=== PATIENT | male | born 1980 | race Caucasian/White ===

== ENCOUNTER 2017-07-02 09:04 | Emergency (ER) | payer BC ==
[2017-07-02 09:53] VITALS: O2SAT 97
[2017-07-02 10:16] LABS: BASO # 0.1 K/uL (0.0-0.2); BASO % 0.5 % (0.0-2.0); EOS # 0.5 K/uL (0.0-0.7); EOS % 3.9 % (0.0-4.0); HEMATOCRIT 41.6 % (35.0-51.0); LYMPH # 1.5 K/uL (1.0-4.3); LYMPH % 12.7 % (20.0-40.0); MEAN CELL VOLUME 91.2 fL (80.0-94.0); MEAN CORPUSCULAR HEMOGLOBIN 30.5 pg (27.0-31.0); MEAN CORPUSCULAR HGB CONC 33.4 g/dL (33.0-37.0); MEAN PLATELET VOLUME 7.8 fL (7.2-11.7); MONO % 8.1 % (0.0-10.0); RED CELL DISTRIBUTION WIDTH 13.8 % (11.5-14.5)
[2017-07-02] MEDS ORDERED: Albuterol-Ipratrop 3 mg / 0.5 (3 ml) UD IH STA (10:16)
[2017-07-02] MEDS ORDERED: Albuterol 0.083% Inhal Sol (2.5 mg/3 mL) UD IH STA (10:16)
[2017-07-02] MEDS ORDERED: Metoprolol Succinate 25 mg XL Tab PO ONE (10:17)
[2017-07-02 10:37] LABS: BLOOD UREA NITROGEN 15 mg/dL (9-20); CALCIUM 8.7 mg/dl (8.6-10.4); CARBON DIOXIDE 26 mmol/L (22-30); CHLORIDE 100 mmol/L (98-107); GFR AFRICAN-AMERICAN > 60; GLUCOSE,RANDOM 100 mg/dL (75-110); POTASSIUM 4.4 mmol/L (3.6-5.2); SODIUM 140 mmol/L (132-148)
[2017-07-02] MEDS ORDERED: Albuterol-Ipratrop 3 mg / 0.5 (3 ml) UD ONE ×2 (10:44→11:47)
--- NOTE | 2017-07-02 10:53 | RAD ---
HISTORY: Shortness of breath COMPARISON: 09/20/2016 TECHNIQUE: Chest PA and lateral FINDINGS: LUNGS: Moderate venous congestion with patchy bibasilar airspace opacities. PLEURA: No significant pleural effusion identified. No pneumothorax apparent. CARDIOVASCULAR: Left-sided pacer device. Cardiomegaly. OSSEOUS STRUCTURES: No significant abnormalities. VISUALIZED UPPER ABDOMEN: Normal. OTHER FINDINGS: None. IMPRESSION: Moderate venous congestion with patchy bibasilar airspace opacities.
--- NOTE | 2017-07-02 11:24 | C.PDOC ---
History Of Present Illness 37 yo male w/PMHx of asthma, cardiomyopathy, come in for evaluation of cold sx gradually worse for past 3-4 days. Pt reports, started as nasal congestion with dry cough. Pt sts, cough worse gradually became more productive with clear sputum. Since yesterday, developed SOB, intermittent wheezing. Otherwise, pt denies fever, chills, headache, dizziness, visual changes, neck pain, drooling, dysphagia, palpitation, diaphoresis, abd. pain, N/V/D, back pain, rash. Ambulate to ED for evaluation, not in resp. distress. Time Seen by Provider: 07/02/17 09:36 Chief Complaint (Nursing): Shortness Of Breath History Per: Patient Onset/Duration Of Symptoms: Gradual Past Medical History Reviewed: Historical Data, Nursing Documentation, Vital Signs Vital Signs: Last Vital Signs Temp 98.6 F 07/02/17 11:57 Pulse 112 H 07/02/17 11:57 Resp 18 07/02/17 11:57 BP 104/78 07/02/17 11:57 Pulse Ox 97 07/02/17 11:57 - Medical History PMH: Bronchitis, CHF, HTN Denies: Chronic Kidney Disease Surgical History: Appendectomy - [facility] Procedures CORONAR ARTERIOGR-2 CATH (10/06/13) RT & LT HEART ANGIOCARD (10/06/13) RT/LEFT HEART CARD CATH (10/06/13) Family History: States: [place], CAD, Hypertension (CHF), Other - Social History Hx Tobacco Use: No Hx Alcohol Use: No Hx Substance Use: No - Immunization History Hx Tetanus Toxoid Vaccination: No Hx Influenza Vaccination: No Hx Pneumococcal Vaccination: No Review Of Systems Except As Marked, All Systems Reviewed And Found Negative. Constitutional: Negative for: Fever, Chills, Malaise ENT: Positive for: Nose Discharge, Nose Congestion, Throat Pain. Negative for: Ear Discharge, Throat Swelling Cardiovascular: Negative for: Chest Pain, Palpitations, Orthopnea, Edema, Light Headedness Respiratory: Positive for: Cough, Shortness of Breath, Sputum, Wheezing. Negative for: SOB with Excertion, Pleuritic Pain Gastrointestinal: Negative for: Nausea, Vomiting, Abdominal Pain Genitourinary: Negative for: Dysuria Musculoskeletal: Negative for: Neck Pain, Back Pain Skin: Negative for: Rash Neurological: Negative for: Weakness, Numbness, Altered Mental Status, Headache , Dizziness Physical Exam - Physical Exam Appears: Well, Non-toxic, No Acute Distress Skin: Normal Color, Warm, Dry, No Rash Head: Normacephalic Eye(s): bilateral: PERRL Nose: No Flaring, Discharge (scant clear B/L rhinorhea) Oral Mucosa: Moist, Drooling Throat: No Erythema, No Exudate, No Drooling Neck: Supple Cardiovascular: Rhythm Regular, No Friction Rub, No Murmur, No JVD Respiratory: No Decreased Breath Sounds, No Accessory Muscle Use, No Rales, No Rhonchi, No Stridor, Wheezing (diffuse Right sided >Left expiratory) Gastrointestinal/Abdominal: Soft, No Tenderness Back: No CVA Tenderness Extremity: No Pedal Edema, No Swelling Neurological/Psych: Oriented x3, Normal Speech ED Course And Treatment - Laboratory Results Result Diagrams: 07/02/17 10:13 07/02/17 10:13 ECG: Interpreted By Me, Viewed By Me (and ED attending) Interpretation Of ECG: SInus tachy@106/min, Left atrial enragement, incomplete LBBB, no acute ST-T changes. Compare to old study from 2016 and appears without acute abnormalities. O2 Sat by Pulse Oximetry: 97 Pulse Ox Interpretation: Normal - Radiology CXR: Read By Radiologist - Other Rad CXR X-Ray: Read By Radiologist Interpretation: ccession No. : [id number]. Patient Name / ID : HAO CARVALHO / [id number]. Exam Date : 07/02/2017 10:04:51 ( Approved ). Study Comment : Sex / Age : M / 37Y. Creator : Vimal Yates MD. Dictator : Vimal Yates MD. Cable Assembler And Swager : Technical Spec : Vimal Yates MD. Approver2 : Report Date : 08/2017 10:51:33. My Comment : . HISTORY: Shortness of breath. COMPARISON: 09/20/2016. TECHNIQUE: Chest PA and lateral. FINDINGS: LUNGS: Moderate venous congestion with patchy bibasilar airspace opacities. PLEURA: No significant pleural effusion identified. No pneumothorax apparent. CARDIOVASCULAR: Left-sided pacer device. Cardiomegaly. OSSEOUS STRUCTURES: No significant abnormalities. VISUALIZED UPPER ABDOMEN: Normal. OTHER FINDINGS: None. IMPRESSION: Moderate venous congestion with patchy bibasilar airspace opacities. Progress Note: On re-evaluation, pt is afebrile, hemodynamicaly stable. Non- toxic. Pt reports, " feels much better". PUlseOx 97% RA. Neck: Supple, (-) JVD. ENT: no acute findings. Lungs: moderate improvement in wheezing, BS equal B/L. CVS: (+)S1S2, reg. ABd: benign. Bloor work review and appears without acute abnoramlities compare to previous results. EKG, CXR- no new acute changes noted. Case discussed with pt's PMD and results review. Discahrge with outpt f/u recommend and scheduled. Pt has clinical findings c/w bronchitis, asthma exacerbation. Pt advised on course of ds. ref. to F/u with PMD in 1- 2 days for re-evaluation. Return to ED if any worsening or new changes. Disposition Counseled Patient/Family Regarding: Studies Performed, Diagnosis, Need For Followup, Rx Given - Disposition Referrals: Mu Moreira MD [Staff Provider] - Disposition: HOME/ ROUTINE Disposition Time: 11:25 Condition: STABLE Additional Instructions: Encourage fluids Take medication as prescribed Follow up with PMD in 1- 2days for re-evaluation. Return to ED if any worsening or new changes. Prescriptions: Albuterol 0.083% [Albuterol 0.083% Inhal Nina (2.5 mg/3 ml) UD] 2.5 mg IH Q4 # 100 neb Cefdinir [Omnicef] 300 mg PO BID #14 cap Prednisone [Deltasone] 60 mg PO DAILY #9 tablet Instructions: Asthma (ED), Acute Bronchitis (ED) Forms: [facility] (Icelandic), Work Excuse - Clinical Impression Clinical Impression: Bronchitis, Asthma
[2017-07-02] MEDS ORDERED: Albuterol-Ipratrop 3 mg / 0.5 (3 ml) UD INH STA (11:40)
[2017-07-02 11:58] VITALS: BP 104/78; PULSE 112; RESP 18; TEMP 98.6
== END 2017-07-02 12:27 | disposition home or self-care (01) ==
LOC: C.ER 09:04
DX: J45.901 Unspecified asthma with (acute) exacerbation (principal)
CPT/HCPCS: 71020; 80048; 83880; 84484; 85025; 94150; 94640; 96374; 99284; J2930

== ENCOUNTER 2017-09-03 12:47 | Inpatient (IN) | payer BC ==
[2017-09-03] MEDS ORDERED: Albuterol-Ipratrop 3 mg / 0.5 (3 ml) UD IH STA (17:04)
--- NOTE | 2017-09-03 17:16 | RAD ---
HISTORY: productive cough COMPARISON: None 08/2017 TECHNIQUE: Chest PA and lateral FINDINGS: LUNGS: No active pulmonary disease. PLEURA: No significant pleural effusion identified. No pneumothorax apparent. CARDIOVASCULAR: No radiographic findings to suggest acute or significant cardiovascular disease. Position/ configuration of pacemaker device: Satisfactory. OSSEOUS STRUCTURES: No significant abnormalities. VISUALIZED UPPER ABDOMEN: Normal. OTHER FINDINGS: None. IMPRESSION: No active disease. No significant interval change compared to the prior examination(s).
[2017-09-03 17:24] LABS: BASO # 0.1 K/uL (0.0-0.2); EOS # 0.2 K/uL (0.0-0.7); LYMPH # 2.6 K/uL (1.0-4.3); MEAN CORPUSCULAR HGB CONC 33.8 g/dL (33.0-37.0)
[2017-09-03 17:31] LABS: BASO % 0.6 % (0.0-2.0); EOS % 1.3 % (0.0-4.0); HEMATOCRIT 42.4 % (35.0-51.0); MEAN CELL VOLUME 90.8 fL (80.0-94.0); MEAN CORPUSCULAR HEMOGLOBIN 30.7 pg (27.0-31.0); MEAN PLATELET VOLUME 8.5 fL (7.2-11.7); MONO # 0.8 K/uL (0.0-0.8); MONO % 5.1 % (0.0-10.0); NRBC % 0.1 % (0.0-2.0); RED CELL DISTRIBUTION WIDTH 13.4 % (11.5-14.5); WHITE BLOOD COUNT 16.1 K/uL (4.8-10.8)
[2017-09-03] MEDS ORDERED: Albuterol-Ipratrop 3 mg / 0.5 (3 ml) UD ONE (17:31)
[2017-09-03 17:34] LABS: CHLORIDE 99 mmol/L (98-107); SODIUM 134 mmol/L (132-148)
[2017-09-03 17:35] LABS: POTASSIUM 4.1 mmol/L (3.6-5.2)
[2017-09-03 17:37] LABS: ALB/GLOB RATIO 1.3 (1.0-2.1); ALKALINE PHOSPHATASE 79 U/L (38-126); AST/SGOT 35 U/L (17-59); BILIRUBIN,TOTAL 1.4 mg/dL (0.2-1.3); BLOOD UREA NITROGEN 16 mg/dL (9-20); CARBON DIOXIDE 25 mmol/L (22-30); GFR AFRICAN-AMERICAN > 60; GLUCOSE,RANDOM 121 mg/dL (75-110); TOTAL PROTEIN 7.6 g/dL (6.3-8.3)
[2017-09-03 17:38] LABS: ALT/SGPT 49 U/L (21-72); CALCIUM 9.1 mg/dl (8.6-10.4)
[2017-09-03 17:45] LABS: VENOUS BLOOD GAS BASE EXCESS 2.9 mmol/L (0.0-2.0); VENOUS BLOOD GAS PCO2 43 mmHg (40-60); VENOUS BLOOD PH 7.42 (7.32-7.43)
[2017-09-03] MEDS ORDERED: Moxifloxacin IV 400mg/250ml NS 400 MG/250 ML BAG IV STA (18:09)
--- NOTE | 2017-09-03 18:16 | C.PDOC ---
History Of Present Illness 37 year old male with Hx of CHF and pacemaker presents to the ED c/o having a dry cough that got progressively worse associated with yellowish, dark sputum and SOB. Chief Complaint (Nursing): Cough, Cold, Congestion History Per: Patient History/Exam Limitations: no limitations Onset/Duration Of Symptoms: Days Current Symptoms Are (Timing): Still Present Location Of Pain: Throat Sick Contacts (Context): None Associated Symptoms: Cough, Sputum. denies: Nausea Recent travel outside of the [place]: No Additional History Per: Patient Past Medical History Reviewed: Historical Data, Nursing Documentation, Vital Signs Vital Signs: Last Vital Signs Temp 97.8 F 09/03/17 13:33 Pulse 102 H 09/03/17 18:15 Resp 18 09/03/17 18:15 BP 96/55 L 09/03/17 18:15 Pulse Ox 95 09/03/17 18:32 - Medical History PMH: Bronchitis, CHF, HTN Denies: Chronic Kidney Disease Surgical History: Appendectomy - [facility] Procedures CORONAR ARTERIOGR-2 CATH (10/06/13) RT & LT HEART ANGIOCARD (10/06/13) RT/LEFT HEART CARD CATH (10/06/13) Family History: States: Unknown Family Hx, [place], CAD, Hypertension (CHF) - Social History Hx Tobacco Use: No Hx Alcohol Use: No Hx Substance Use: No - Immunization History Hx Tetanus Toxoid Vaccination: No Hx Influenza Vaccination: No Hx Pneumococcal Vaccination: No Review Of Systems Constitutional: Negative for: Fever, Chills ENT: Negative for: Nose Discharge, Throat Pain, Throat Swelling Cardiovascular: Negative for: Chest Pain, Palpitations Respiratory: Positive for: Shortness of Breath Gastrointestinal: Negative for: Nausea, Vomiting, Abdominal Pain Neurological: Negative for: Weakness, Numbness Physical Exam - Physical Exam Appears: Non-toxic, No Acute Distress Skin: Normal Color, Warm, Dry Head: Atraumatic, Normacephalic Eye(s): bilateral: Normal Inspection Oral Mucosa: Moist Throat: Normal, No Erythema, No Exudate Neck: Normal ROM, Supple Chest: Symmetrical Cardiovascular: Rhythm Regular, No Murmur Respiratory: No Accessory Muscle Use, No Rales, No Rhonchi, Wheezing (Bilateral) Gastrointestinal/Abdominal: Soft, No Tenderness Extremity: Normal ROM, No Pedal Edema, No Calf Tenderness, No Deformity, No Swelling Neurological/Psych: Oriented x3, Normal Speech, Normal Cognition Gait: Steady ED Course And Treatment - Laboratory Results Result Diagrams: 09/03/17 17:21 09/03/17 17:21 O2 Sat by Pulse Oximetry: 95 (On RA) Pulse Ox Interpretation: Normal - Radiology CXR: Interpreted by Me, Viewed By Me CXR Interpretation: Yes: No Acute Disease, Cardiomegaly. No: Infiltrates Nexus Criteria: Negative Progress Note: Plan: -EKG, UA, Blood work venous blood gas ordered. -Duoneb 3 ml INH, Lasix 40 mg PO, Avelox 400 mg in 250 mL IV, Solu-medrol 125 mg IVP given. -Blood culture collected. -Nebulizer treatment given - Physician Consult Information Physician Contacted: Oren Bolanos Outcome Of Conversation: accepted to tele for an admission Disposition - Disposition Disposition: HOSPITALIZED Disposition Time: 18:31 Condition: FAIR Forms: [facility] (Kyrgyz) - Clinical Impression Clinical Impression: CHF (congestive heart failure), Bronchitis, Asthma with exacerbation, Tachycardia - PA / RECORD PRESS OPERATOR / Resident Statement MD/DO has reviewed & agrees with the documentation as recorded. - Scribe Statement The provider has reviewed the documentation as recorded by the Scribe Goran Gonzalez All medical record entries made by the Scribe were at my direction and personally dictated by me. I have reviewed the chart and agree that the record accurately reflects my personal performance of the history, physical exam, medical decision making, and the department course for this patient. I have also personally directed, reviewed, and agree with the discharge instructions and disposition. Decision To Admit - Pt Status Changed To: Hospital Disposition Of: Inpatient - Admit Certification Admit to Inpatient:: After my assessment, the patient will require hospitalization for at least two midnights. This is because of the severity of symptoms shown, intensity of services needed, and/or the medical risk in this patient being treated as an outpatient. - InPatient: Physician Admission Certification: I certify that this patient requires 2 or more midnights of care for the following reason:: Clinically pneumonia, h/o CHF and Asthma, leucocytosis, tachycardia. Needs more than 48 h of hospitalization. - . Bed Request Type: Telemetry Admitting Physician: Oren Bolanos Patient Diagnosis: CHF (congestive heart failure), Bronchitis, Asthma with exacerbation, Tachycardia
[2017-09-03] MEDS ORDERED: Moxifloxacin IV 400mg/250ml NS 400 MG/250 ML BAG IVPB ONE (18:34)
--- NOTE | 2017-09-03 19:19 | CP.PCM.HP ---
<Sabino Moeller - Last Filed: 09/04/17 06:21> History of Present Illness - History of Present Illness History of Present Illness: CC: SOB HPI: Patient is a 37 year old male, with PMHx of asthma, TIFFANIE, systolic CHF, HTN, impaired glucose tolerance, dilated non-ischemic cardiomyopathy, s/p AICD, who presented to the emergency room with complaint of worsening cold symptoms. He states he first noticed "nasal congestion" and dry cough 3-4 days ago, and they have gradually gotten worse. Cough has now become productive with yellow sputum. Patient states his "chest feels tight" and it is getting harder for him to take a deep breath. He denies any sick contacts. Patient states he uses no inhalers at home, but does have a nebulizer he is uses a couple of times "when he feels like he needs it." When asked about his daily activity, he has been able to work at his job in a [employer] with exertion, without issue, except for today when he knew he would be unable to get through his shift. He states is able to lay flat and does not need to be propped up. He denies fever, chills, chest pain, palpitations, abdominal pain, N/V/D/C. He denies prior intubations for asthma, but admits recent ED visit on 07/02/17 for similar symptoms. He was given albuterol inhaler, which he states ran out "two weeks ago." PMD: Dr. Moreira Registrar Assistant: Dr. Quinteros Past medical hx: asthma, TIFFANIE, systolic CHF, HTN, impaired glucose tolerance, dilated non-ischemic cardiomyopathy, s/p AICD Past surgical hx: appendectomy, defibrillator placement (2014) Family hx: father had CAD, obesity and DM throughout family Social hx: lives with significant other, denies tobacco, alcohol, use or drugs; works in [employer] Allergies: none Present on Admission - Present on Admission Any Indicators Present on Admission: No Review of Systems - Constitutional Constitutional: absent: Chills, Fever - EENT Eyes: absent: Change in Vision Ears: absent: Decreased Hearing - Cardiovascular Cardiovascular: Dyspnea, Dyspnea on Exertion. absent: Chest Pain - Respiratory Respiratory: Dyspnea, Dyspnea on Exertion, Wheezing - Gastrointestinal Gastrointestinal: absent: Abdominal Pain, Nausea, Vomiting - Genitourinary Genitourinary: absent: Dysuria, Flank Pain - Musculoskeletal Musculoskeletal: absent: Back Pain, Numbness, Tingling - Integumentary Integumentary: absent: Dry Skin, Wounds - Neurological Neurological: absent: Disequilibrium, Tingling, Weakness - Psychiatric Psychiatric: absent: Anxiety, Depression Past Patient History - Infectious Disease Hx of Infectious Diseases: None - Tetanus Immunizations Tetanus Immunization: Unknown - Past Medical History & Family History Past Medical History?: Yes - Past Social History Smoking Status: Never Smoked - CARDIAC Hx Congestive Heart Failure: Yes Hx Hypertension: Yes - PULMONARY Hx Bronchitis: Yes - NEUROLOGICAL Hx Neurological Disorder: No - HEENT Hx HEENT Problems: No - RENAL Hx Chronic Kidney Disease: No - ENDOCRINE/METABOLIC Hx Endocrine Disorders: No - HEMATOLOGICAL/ONCOLOGICAL Hx Blood Disorders: No - INTEGUMENTARY Hx Dermatological Problems: No - MUSCULOSKELETAL/RHEUMATOLOGICAL Hx Musculoskeletal Disorders: No Hx Falls: No - GASTROINTESTINAL Other/Comment: hx appendicitis - GENITOURINARY/GYNECOLOGICAL Hx Genitourinary Disorders: No - PSYCHIATRIC Hx Substance Use: No - SURGICAL HISTORY Hx Appendectomy: Yes - ANESTHESIA Hx Anesthesia: Yes Hx Anesthesia Reactions: No Meds Allergies/Adverse Reactions: Allergies Allergy/AdvReac Type Severity Reaction Status Date / Time No Known Allergies Allergy Verified 09/20/16 18:36 Physical Exam - Constitutional Appears: Non-toxic, No Acute Distress - Head Exam Head Exam: ATRAUMATIC, NORMOCEPHALIC - Eye Exam Eye Exam: EOMI, Normal appearance. absent: Scleral icterus Pupil Exam: PERRL - ENT Exam ENT Exam: Mucous Membranes Moist - Neck Exam Neck exam: Positive for: Normal Inspection. Negative for: Tenderness - Respiratory Exam Respiratory Exam: Wheezes. absent: Clear to Auscultation Bilateral, Rales, Rhonchi, NORMAL BREATHING PATTERN - Cardiovascular Exam Cardiovascular Exam: Tachycardia, +S1, +S2. absent: Systolic Murmur - GI/Abdominal Exam GI & Abdominal Exam: Normal Bowel Sounds, Soft. absent: Distended, Tenderness - Extremities Exam Extremities exam: Positive for: normal inspection. Negative for: pedal edema, tenderness - Back Exam Back exam: absent: CVA tenderness (L), CVA tenderness (R) - Neurological Exam Neurological exam: Alert, Oriented x3 - Psychiatric Exam Psychiatric exam: Normal Affect, Normal Mood - Skin Skin Exam: Dry, Normal Color, Warm Results - Vital Signs Recent Vital Signs: Last Vital Signs Temp 97.8 F 09/03/17 13:33 Pulse 102 H 09/03/17 18:15 Resp 18 09/03/17 18:15 BP 96/55 L 09/03/17 18:15 Pulse Ox 95 09/03/17 18:54 - Labs Result Diagrams: 09/03/17 17:21 09/04/17 02:37 Labs: Laboratory Results - last 24 hr 09/03/17 09/03/17 09/03/17 17:21 17:21 17:35 WBC 16.1 H RBC 4.67 Hgb 14.3 Hct 42.4 MCV 90.8 MCH 30.7 MCHC 33.8 RDW 13.4 Plt Count 377 MPV 8.5 Neut % (Auto) 77.0 H Lymph % (Auto) 16.0 L [place] % (Auto) 5.1 Eos % (Auto) 1.3 Baso % (Auto) 0.6 Neut # 12.4 H Lymph # 2.6 [place] # 0.8 Eos # 0.2 Baso # 0.1 pO2 51 VBG pH 7.42 VBG pCO2 43 VBG HCO3 26.9 VBG Total CO2 29.2 H VBG O2 Sat (Calc) 89.0 H VBG Base Excess 2.9 H VBG Potassium 3.9 Glucose 128 H Lactate 1.1 Sodium 134 137.0 Potassium 4.1 Chloride 99 104.0 Carbon Dioxide 25 Anion Gap 14 BUN 16 Creatinine 0.9 Est GFR ( Amer) > 60 Est GFR (Non-Af Amer) > 60 Random Glucose 121 H Calcium 9.1 Total Bilirubin 1.4 H AST 35 ALT 49 Alkaline Phosphatase 79 NT-Pro-B Natriuret Pep 2020 H Total Protein 7.6 Albumin 4.3 Globulin 3.3 Albumin/Globulin Ratio 1.3 Venous Blood Potassium 3.9 Assessment & Plan - Assessment and Plan (Free Text) Plan: Sepsis Criteria: HR> 90, WBC > 12 Source: ED initially believed possible pneumonia Pt afebrile WBC 16.1 -mild left shift, no bandemia CXR (09/03/17): NAD (see full report) Lactate 1.1 f/u blood, urine, sputum culture f/u influenza Asthma exacerbation vs CHF exacerbation vs Bronchitis Admit to telemetry Dr. Quinteros, cardiology consult: help appreciated Dr. Escamilla, pulmonology consult: help appreciated History of systolic CHF, NYHA class 2 - ECHO (09/2016): EF 20-25%, LV moderately dilated, mild-moderate pulm HTN, trace pericardial effusion Initial Ekg showd sinus tachycardia @106 bpm, incomplete LBBB, no acute ST-T wave changes CXR (09/03/17): NAD BNP elevated at 2020 (Previous admissions 4540) WBC elevated @ 16.1 Avelox 400mg IV given once in ED Lasix 40mg IV Daily Solu-medrol 40mg IV Q6H -125mg IV given in ED Duonebs INH Q4H SHANNAN restart home Enalapril 5mg BID restart home Spironalactone 25 mg daily continue to monitor F/U repeat CBC, CMP, TSH Free T4, Hgb A1c, and lipid panel F/U echo f/u blood, urine, sputum culture f/u influenza HTN Well-controlled restart home Enalapril 5mg BID restart home Spironalactone 25 mg daily Lasix 40mg IV daily Patient admits inability to tolerate Beta-geneva (bronchospasm) continue to monitor Hx of non-dilated ischemic cardiomyopathy AICD [place] in [address] Dr. Quinteros, cardiology consult: help appreciated Impaired Glucose tolerance Hemoglobin A1C 6.3 (09/2016) - f/u repeat A1C Hx of pericardial effusion ECHO (09/2016): EF 20-25%, LV moderately dilated, mild-moderate pulm HTN, trace pericardial effusion - f/u repeat ECHO Prophylactic measures SCDs Heparin 5000 U SC Q12H Pepcid 20mg PO BID Sabino Moeller, PGY-[address] Tobin, shop assistant <Leonard Tobin - Last Filed: 09/04/17 06:36> Results - Vital Signs Recent Vital Signs: Last Vital Signs Temp 98 F 09/04/17 04:15 Pulse 101 H 09/04/17 04:15 Resp 20 09/04/17 04:15 BP 102/67 09/04/17 04:15 Pulse Ox 95 09/03/17 23:50 - Labs Result Diagrams: 09/03/17 17:21 09/04/17 02:37 Labs: Laboratory Results - last 24 hr 09/03/17 09/03/17 09/03/17 17:21 17:21 17:35 WBC 16.1 H RBC 4.67 Hgb 14.3 Hct 42.4 MCV 90.8 MCH 30.7 MCHC 33.8 RDW 13.4 Plt Count 377 MPV 8.5 Neut % (Auto) 77.0 H Lymph % (Auto) 16.0 L [place] % (Auto) 5.1 Eos % (Auto) 1.3 Baso % (Auto) 0.6 Neut # 12.4 H Lymph # 2.6 [place] # 0.8 Eos # 0.2 Baso # 0.1 pO2 51 VBG pH 7.42 VBG pCO2 43 VBG HCO3 26.9 VBG Total CO2 29.2 H VBG O2 Sat (Calc) 89.0 H VBG Base Excess 2.9 H VBG Potassium 3.9 Glucose 128 H Lactate 1.1 Sodium 134 137.0 Potassium 4.1 Chloride 99 104.0 Carbon Dioxide 25 Anion Gap 14 BUN 16 Creatinine 0.9 Est GFR ( Amer) > 60 Est GFR (Non-Af Amer) > 60 Random Glucose 121 H Calcium 9.1 Phosphorus Magnesium Total Bilirubin 1.4 H AST 35 ALT 49 Alkaline Phosphatase 79 Total Creatine Kinase CK-MB (Mass) Troponin I, Quant NT-Pro-B Natriuret Pep 2020 H Total Protein 7.6 Albumin 4.3 Globulin 3.3 Albumin/Globulin Ratio 1.3 Triglycerides Cholesterol LDL Cholesterol Direct HDL Cholesterol TSH 3rd Generation Venous Blood Potassium 3.9 09/03/17 09/04/17 21:15 02:37 WBC RBC Hgb Hct MCV MCH MCHC RDW Plt Count MPV Neut % (Auto) Lymph % (Auto) [place] % (Auto) Eos % (Auto) Baso % (Auto) Neut # Lymph # [place] # Eos # Baso # pO2 VBG pH VBG pCO2 VBG HCO3 VBG Total CO2 VBG O2 Sat (Calc) VBG Base Excess VBG Potassium Glucose Lactate Sodium 136 Potassium 4.5 Chloride 101 Carbon Dioxide 26 Anion Gap 14 BUN 20 Creatinine 1.0 Est GFR ( Amer) > 60 Est GFR (Non-Af Amer) > 60 Random Glucose 160 H Calcium 9.3 Phosphorus 1.6 L Magnesium 1.9 Total Bilirubin 0.8 AST 33 ALT 56 Alkaline Phosphatase 78 Total Creatine Kinase 312 H 268 H CK-MB (Mass) 1.63 1.23 Troponin I, Quant 0.0350 0.0210 NT-Pro-B Natriuret Pep Total Protein 8.4 H Albumin 4.3 Globulin 4.2 H Albumin/Globulin Ratio 1.0 Triglycerides 86 D Cholesterol 197 LDL Cholesterol Direct 163 H HDL Cholesterol 43 TSH 3rd Generation 0.27 L Venous Blood Potassium Assessment & Plan - Date & Time Date: 09/04/17 (I have seen and examined the patient. I agree with the findings and plan of care as documented by Dr. Moeller. Patient with pneumonia. History of CHF and Asthma. Improvement in symptoms after nebs and solumedrol. Avelox for now. Meets SIRs criteria. Check blood culture. Continue home meds for CHF. Lasix IV as needed. Monitor for acute changes.) Time: 06:34 Attending/Attestation - Attestation I have personally seen and examined this patient.: Yes I have fully participated in the care of the patient.: Yes I have reviewed all pertinent clinical information: Yes
[2017-09-03] MEDS: Albuterol-Ipratrop 3 mg / 0.5 (3 ml) UD INH SCH (23:39)
[2017-09-04] MEDS: MethylPREDNISolone 40 mg Vial IVP SCH ×4 (00:02→18:45)
[2017-09-04 02:56] LABS: CHLORIDE 101 mmol/L (98-107)
[2017-09-04 02:58] LABS: POTASSIUM 4.5 mmol/L (3.6-5.2); SODIUM 136 mmol/L (132-148)
[2017-09-04 02:59] LABS: CHOLESTEROL 197 mg/dL (0-199)
[2017-09-04 03:00] LABS: ALKALINE PHOSPHATASE 78 U/L (38-126); ALT/SGPT 56 U/L (21-72); AST/SGOT 33 U/L (17-59); BILIRUBIN,TOTAL 0.8 mg/dL (0.2-1.3); BLOOD UREA NITROGEN 20 mg/dL (9-20); CARBON DIOXIDE 26 mmol/L (22-30); GFR AFRICAN-AMERICAN > 60; GLUCOSE,RANDOM 160 mg/dL (75-110); TOTAL PROTEIN 8.4 g/dL (6.3-8.3)
[2017-09-04] MEDS: Albuterol-Ipratrop 3 mg / 0.5 (3 ml) UD INH SCH ×5 (03:00→19:57)
[2017-09-04 03:01] LABS: CALCIUM 9.3 mg/dl (8.6-10.4); MAGNESIUM 1.9 mg/dL (1.6-2.3); PHOSPHOROUS 1.6 mg/dL (2.5-4.5)
[2017-09-04 04:27] LABS: THYROID STIMULATING HORMONE 0.27 mIU/L (0.46-4.68)
[2017-09-04 07:35] LABS: BASO % 0.1 % (0.0-2.0); HEMATOCRIT 42.1 % (35.0-51.0); LYMPH # 0.6 K/uL (1.0-4.3); LYMPH % 4.2 % (20.0-40.0); MEAN CELL VOLUME 92.2 fL (80.0-94.0); MEAN CORPUSCULAR HEMOGLOBIN 30.8 pg (27.0-31.0); MEAN CORPUSCULAR HGB CONC 33.5 g/dL (33.0-37.0); MEAN PLATELET VOLUME 8.5 fL (7.2-11.7); MONO # 0.1 K/uL (0.0-0.8); MONO % 0.9 % (0.0-10.0); PLATELET COUNT 340 K/uL (130-400); RED CELL DISTRIBUTION WIDTH 13.4 % (11.5-14.5); WHITE BLOOD COUNT 14.1 K/uL (4.8-10.8)
--- NOTE | 2017-09-04 07:54 | CP.PCM.PN ---
<Devaughn William - Last Filed: 09/04/17 13:22> Subjective - Date & Time of Evaluation Date of Evaluation: 09/04/17 Time of Evaluation: 07:52 - Subjective Subjective: PGY-[address] Shields. No acute events overnight. Patient was seen and examined at bedside this AM. He still complains of dry cough associated with yellowish, dark sputum. He denies fever, chills, chest pain, palpitations, abdominal pain, N/V/D/C. Objective - Vital Signs/Intake and Output Vital Signs (last 24 hours): Temp Pulse Resp BP Pulse Ox 98 F 101 H 20 102/67 95 09/04/17 04:15 09/04/17 04:15 09/04/17 04:15 09/04/17 04:15 09/03/17 23:50 Intake and Output: 09/04/17 09/04/17 06:59 18:59 Intake Total 118 Balance 118 - Medications Medications: Current Medications Albuterol/Ipratropium (Duoneb 3 Mg/0.5 Mg (3 Ml) Ud) 3 ml INH RQ4 [facility] Last Admin: 09/04/17 03:00 Dose: 3 ml Enalapril Maleate (Vasotec) 5 mg PO BID [facility] Famotidine (Pepcid) 20 mg PO BID [facility] Furosemide (Lasix) 40 mg IVP DAILY [facility] Heparin Sodium (Porcine) (Heparin) 5,000 units SC Q8 [facility] Last Admin: 09/04/17 06:10 Dose: 5,000 units Methylprednisolone (Solu-Medrol) 40 mg IVP Q6H [facility] Last Admin: 09/04/17 06:10 Dose: 40 mg Spironolactone (Aldactone) 25 mg PO BID [facility] - Labs Labs: 09/04/17 07:18 09/04/17 02:37 - Additional Findings Additional findings: - Constitutional Appears: Non-toxic, No Acute Distress - Head Exam Head Exam: ATRAUMATIC, NORMOCEPHALIC - Eye Exam Eye Exam: EOMI, Normal appearance. absent: Scleral icterus Pupil Exam: PERRL - ENT Exam ENT Exam: Mucous Membranes Moist - Neck Exam Neck exam: Positive for: Normal Inspection. Negative for: Tenderness - Respiratory Exam Respiratory Exam: Wheezes. absent: Clear to Auscultation Bilateral, Rales, Rhonchi, NORMAL BREATHING PATTERN - Cardiovascular Exam Cardiovascular Exam: Tachycardia, +S1, +S2. absent: Systolic Murmur - GI/Abdominal Exam GI & Abdominal Exam: Normal Bowel Sounds, Soft. absent: Distended, Tenderness - Extremities Exam Extremities exam: Positive for: normal inspection. Negative for: pedal edema, tenderness - Back Exam Back exam: absent: CVA tenderness (L), CVA tenderness (R) - Neurological Exam Neurological exam: Alert, Oriented x3 - Psychiatric Exam Psychiatric exam: Normal Affect, Normal Mood - Skin Skin Exam: Dry, Normal Color, Warm Assessment and Plan - Assessment and Plan (Free Text) Assessment: Sepsis Criteria: HR> 90, WBC > 12 Source: ED initially believed possible pneumonia Pt afebrile WBC 16.1 -mild left shift, no bandemia CXR (09/03/17): NAD (see full report) Lactate 1.1 f/u blood, urine, sputum culture Influenza typ A,B Negative Asthma exacerbation vs CHF exacerbation vs Bronchitis Admit to telemetry Dr. Quinteros, cardiology consult: help appreciated Dr. Escamilla, pulmonology consult: help appreciated History of systolic CHF, NYHA class 2 - ECHO (09/2016): EF 20-25%, LV moderately dilated, mild-moderate pulm HTN, trace pericardial effusion Initial Ekg showd sinus tachycardia @106 bpm, incomplete LBBB, no acute ST-T wave changes CXR (09/03/17): NAD BNP elevated at 2020 (Previous admissions 4540) WBC elevated @ 16.1 Avelox 400mg IV given once in ED Lasix 40mg IV Daily Solu-medrol 40mg IV Q6H -125mg IV given in ED Duonebs INH Q4H [facility] restart home Enalapril 5mg BID restart home Spironalactone 25 mg daily continue to moniter F/U echo F/U blood, urine, sputum culture Influenza typ A,B Negative Lipid panel WNL except LDL 163 (high) TSH 0.27 (low), Free T4 WNL HgbA1C 6.2 HTN Well-controlled restart home Enalapril 5mg BID restart home Spironalactone 25 mg daily Lasix 40mg IV daily Patient admits inability to tolerate Beta-geneva (bronchospasm) continue to monitor Hx of non-dilated ischemic cardiomyopathy AICD placement in [address] Dr. Quinteros, cardiology consult: help appreciated Impaired Glucose tolerance Hemoglobin A1C 6.3 (09/2016) - f/u repeat A1C Hx of pericardial effusion ECHO (09/2016): EF 20-25%, LV moderately dilated, mild-moderate pulm HTN, trace pericardial effusion - f/u repeat ECHO Prophylactic measures SCDs Heparin 5000 U SC Q12H Pepcid 20mg PO BID <AlysonNando H - Last Filed: 09/04/17 15:59> Objective - Vital Signs/Intake and Output Vital Signs (last 24 hours): Temp Pulse Resp BP Pulse Ox 97.9 F 114 H 20 131/66 95 09/04/17 07:25 09/04/17 12:45 09/04/17 07:25 09/04/17 11:38 09/04/17 07:25 Intake and Output: 09/04/17 09/04/17 06:59 18:59 Intake Total 118 Balance 118 - Medications Medications: Current Medications Albuterol/Ipratropium (Duoneb 3 Mg/0.5 Mg (3 Ml) Ud) 3 ml INH RQ4 [facility] Last Admin: 09/04/17 12:45 Dose: 3 ml Enalapril Maleate (Vasotec) 5 mg PO BID [facility] Last Admin: 09/04/17 11:38 Dose: 5 mg Famotidine (Pepcid) 20 mg PO BID [facility] Last Admin: 09/04/17 09:51 Dose: 20 mg Furosemide (Lasix) 40 mg IVP DAILY [facility] Last Admin: 09/04/17 09:48 Dose: 40 mg Heparin Sodium (Porcine) (Heparin) 5,000 units SC Q8 [facility] Last Admin: 09/04/17 14:21 Dose: 5,000 units Moxifloxacin HCl (Avelox Iv 400mg/250ml Ns) 400 mg in 250 mls @ 167 mls/hr IVPB Q24H [facility] Methylprednisolone (Solu-Medrol) 40 mg IVP Q6H [facility] Last Admin: 09/04/17 11:44 Dose: 40 mg Pneumococcal Polyvalent Vaccine (Pneumovax 23 Vaccine) 0.5 ml IM .ONCE ONE Stop: 09/05/17 10:01 Spironolactone (Aldactone) 25 mg PO BID [facility] Last Admin: 09/04/17 09:51 Dose: 25 mg - Labs Labs: 09/04/17 07:18 09/04/17 02:37
[2017-09-04 09:27] LABS: NEUTROPHIL 92 % (50-75); TOTAL CELLS COUNTED 100
[2017-09-04] MEDS ORDERED: Moxifloxacin IV 400mg/250ml NS 400 MG/250 ML BAG IVPB SCH ×3 (10:15→20:15)
[2017-09-04] MEDS ORDERED: Perflutren Lipid Microsphere 1.5 ML SUS IV ONE ×2 (10:52→10:56)
[2017-09-04 11:55] LABS: RBC URINE 2 /hpf (0-3); URINE BACTERIA RARE (<OCC); URINE BILIRUBIN NEGATIVE (NEGATIVE); URINE BLOOD NEGATIVE (NEGATIVE); URINE COLOR Yellow (YELLOW); URINE GLUCOSE (UA) 1+ mg/dL (Normal); URINE KETONE TRACE mg/dL (NEGATIVE); URINE LEUKOCYTE ESTERASE NEG Leu/uL (Negative); URINE PROTEIN 1+ mg/dL (NEGATIVE); WBC URINE 1 /hpf (0-5)
--- NOTE | 2017-09-04 12:14 | CARD ---
APPROVED REPORT EKG Measurement Heart [id number] HI [id number] <Conclusion> Sinus tachycardia Incomplete left bundle branch block T wave abnormality, consider lateral ischemia Abnormal ECG
--- NOTE | 2017-09-04 12:14 | CARD ---
APPROVED REPORT EKG Measurement Heart [id number] [place] [id number] <Conclusion> Sinus tachycardia Possible Left atrial enlargement T wave abnormality, consider lateral ischemia Abnormal ECG
--- NOTE | 2017-09-04 16:03 | CP.PCM.CON ---
History of Present Illness - History of Present Illness History of Present Illness: Reason for consultation: Shortness of breath 37-year-old male with history of obstructive sleep apnea, CHF, asthma, hypertension, dilated nonischemic cardiomyopathy status post AICD presented to emergency room complaining of nasal congestion and dry cough for 4 days associated with shortness of breath that progressively got worse. Cough is productive of yellow phlegm. Denies fevers chills, denies chest pain Past medical hx: asthma, TIFFANIE, systolic CHF, HTN, impaired glucose tolerance, dilated non-ischemic cardiomyopathy, s/p AICD Past surgical hx: appendectomy, defibrillator placement (2014) Family hx: father had CAD, obesity and DM throughout family Social hx: lives with significant other, denies tobacco, alcohol, use or drugs; works in [employer] Allergies: none Review of Systems - Review of Systems All systems: reviewed and no additional remarkable complaints except (Shortness of breath and cough) Past Patient History - Infectious Disease Hx of Infectious Diseases: None - Tetanus Immunizations Tetanus Immunization: Unknown - Past Medical History & Family History Past Medical History?: Yes - Past Social History Smoking Status: Never Smoked - CARDIAC Hx Congestive Heart Failure: Yes Hx Hypertension: Yes - PULMONARY Hx Bronchitis: Yes - NEUROLOGICAL Hx Neurological Disorder: No - HEENT Hx HEENT Problems: No - RENAL Hx Chronic Kidney Disease: No - ENDOCRINE/METABOLIC Hx Endocrine Disorders: No - HEMATOLOGICAL/ONCOLOGICAL Hx Blood Disorders: No - INTEGUMENTARY Hx Dermatological Problems: No - MUSCULOSKELETAL/RHEUMATOLOGICAL Hx Musculoskeletal Disorders: No Hx Falls: No - GASTROINTESTINAL Other/Comment: hx appendicitis - GENITOURINARY/GYNECOLOGICAL Hx Genitourinary Disorders: No - PSYCHIATRIC Hx Substance Use: No - SURGICAL HISTORY Hx Appendectomy: Yes - ANESTHESIA Hx Anesthesia: Yes Hx Anesthesia Reactions: No Meds Allergies/Adverse Reactions: Allergies Allergy/AdvReac Type Severity Reaction Status Date / Time No Known Allergies Allergy Verified 09/20/16 18:36 - Medications Medications: Current Medications Albuterol/Ipratropium (Duoneb 3 Mg/0.5 Mg (3 Ml) Ud) 3 ml INH RQ4 [facility] Last Admin: 09/04/17 12:45 Dose: 3 ml Enalapril Maleate (Vasotec) 5 mg PO BID [facility] Last Admin: 09/04/17 11:38 Dose: 5 mg Famotidine (Pepcid) 20 mg PO BID [facility] Last Admin: 09/04/17 09:51 Dose: 20 mg Furosemide (Lasix) 40 mg IVP DAILY [facility] Last Admin: 09/04/17 09:48 Dose: 40 mg Heparin Sodium (Porcine) (Heparin) 5,000 units SC Q8 [facility] Last Admin: 09/04/17 14:21 Dose: 5,000 units Moxifloxacin HCl (Avelox Iv 400mg/250ml Ns) 400 mg in 250 mls @ 167 mls/hr IVPB Q24H [facility] Methylprednisolone (Solu-Medrol) 40 mg IVP Q6H [facility] Last Admin: 09/04/17 11:44 Dose: 40 mg Pneumococcal Polyvalent Vaccine (Pneumovax 23 Vaccine) 0.5 ml IM .ONCE ONE Stop: 09/05/17 10:01 Spironolactone (Aldactone) 25 mg PO BID [facility] Last Admin: 09/04/17 09:51 Dose: 25 mg Physical Exam - Constitutional Appears: No Acute Distress - Head Exam Head Exam: ATRAUMATIC, NORMOCEPHALIC - Eye Exam Eye Exam: Normal appearance - ENT Exam ENT Exam: Mucous Membranes Moist - Neck Exam Neck exam: Positive for: Normal Inspection - Respiratory Exam Respiratory Exam: Clear to Auscultation Bilateral - Cardiovascular Exam Cardiovascular Exam: REGULAR RHYTHM - GI/Abdominal Exam GI & Abdominal Exam: Normal Bowel Sounds, Soft - Extremities Exam Extremities exam: Positive for: normal inspection - Neurological Exam Neurological exam: Alert, Oriented x3 Results - Vital Signs Recent Vital Signs: Last Vital Signs Temp 97.9 F 09/04/17 07:25 Pulse 114 H 09/04/17 12:45 Resp 20 09/04/17 07:25 BP 131/66 09/04/17 11:38 Pulse Ox 95 09/04/17 07:25 - Labs Result Diagrams: 09/04/17 07:18 09/04/17 02:37 Labs: Laboratory Results - last 24 hr 09/03/17 09/03/17 09/03/17 17:21 17:21 17:35 WBC 16.1 H RBC 4.67 Hgb 14.3 Hct 42.4 MCV 90.8 MCH 30.7 MCHC 33.8 RDW 13.4 Plt Count 377 MPV 8.5 Neut % (Auto) 77.0 H Lymph % (Auto) 16.0 L [place] % (Auto) 5.1 Eos % (Auto) 1.3 Baso % (Auto) 0.6 Neut # 12.4 H Lymph # 2.6 [place] # 0.8 Eos # 0.2 Baso # 0.1 Neutrophils % (Manual) Band Neutrophils % Lymphocytes % (Manual) Monocytes % (Manual) Platelet Estimate RBC Morphology pO2 51 VBG pH 7.42 VBG pCO2 43 VBG HCO3 26.9 VBG Total CO2 29.2 H VBG O2 Sat (Calc) 89.0 H VBG Base Excess 2.9 H VBG Potassium 3.9 Glucose 128 H Lactate 1.1 Sodium 134 137.0 Potassium 4.1 Chloride 99 104.0 Carbon Dioxide 25 Anion Gap 14 BUN 16 Creatinine 0.9 Est GFR ( Amer) > 60 Est GFR (Non-Af Amer) > 60 Random Glucose 121 H Hemoglobin A1c Calcium 9.1 Phosphorus Magnesium Total Bilirubin 1.4 H AST 35 ALT 49 Alkaline Phosphatase 79 Total Creatine Kinase CK-MB (Mass) Troponin I, Quant NT-Pro-B Natriuret Pep 2020 H Total Protein 7.6 Albumin 4.3 Globulin 3.3 Albumin/Globulin Ratio 1.3 Triglycerides Cholesterol LDL Cholesterol Direct HDL Cholesterol Free T4 TSH 3rd Generation Venous Blood Potassium 3.9 Urine Color Urine Clarity Urine pH Ur Specific [place] Urine Protein Urine Glucose (UA) Urine Ketones Urine Blood Urine Nitrate Urine Bilirubin Urine Urobilinogen Ur Leukocyte Esterase Urine WBC (Auto) Urine RBC (Auto) Urine Bacteria Influenza Typ A,B (EIA) 09/03/17 09/04/17 09/04/17 21:15 02:37 05:45 WBC RBC Hgb Hct MCV MCH MCHC RDW Plt Count MPV Neut % (Auto) Lymph % (Auto) [place] % (Auto) Eos % (Auto) Baso % (Auto) Neut # Lymph # [place] # Eos # Baso # Neutrophils % (Manual) Band Neutrophils % Lymphocytes % (Manual) Monocytes % (Manual) Platelet Estimate RBC Morphology pO2 VBG pH VBG pCO2 VBG HCO3 VBG Total CO2 VBG O2 Sat (Calc) VBG Base Excess VBG Potassium Glucose Lactate Sodium 136 Potassium 4.5 Chloride 101 Carbon Dioxide 26 Anion Gap 14 BUN 20 Creatinine 1.0 Est GFR ( Amer) > 60 Est GFR (Non-Af Amer) > 60 Random Glucose 160 H Hemoglobin A1c Calcium 9.3 Phosphorus 1.6 L Magnesium 1.9 Total Bilirubin 0.8 AST 33 ALT 56 Alkaline Phosphatase 78 Total Creatine Kinase 312 H 268 H CK-MB (Mass) 1.63 1.23 Troponin I, Quant 0.0350 0.0210 NT-Pro-B Natriuret Pep Total Protein 8.4 H Albumin 4.3 Globulin 4.2 H Albumin/Globulin Ratio 1.0 Triglycerides 86 D Cholesterol 197 LDL Cholesterol Direct 163 H HDL Cholesterol 43 Free T4 TSH 3rd Generation 0.27 L Venous Blood Potassium Urine Color Urine Clarity Urine pH Ur Specific [place] Urine Protein Urine Glucose (UA) Urine Ketones Urine Blood Urine Nitrate Urine Bilirubin Urine Urobilinogen Ur Leukocyte Esterase Urine WBC (Auto) Urine RBC (Auto) Urine Bacteria Influenza Typ A,B (EIA) Negative for flu a/b 09/04/17 09/04/17 09/04/17 07:18 07:18 07:44 WBC 14.1 H RBC 4.57 Hgb 14.1 Hct 42.1 MCV 92.2 MCH 30.8 MCHC 33.5 RDW 13.4 Plt Count 340 MPV 8.5 Neut % (Auto) 94.8 H Lymph % (Auto) 4.2 L [place] % (Auto) 0.9 Eos % (Auto) 0.0 Baso % (Auto) 0.1 Neut # 13.4 H Lymph # 0.6 L [place] # 0.1 Eos # 0.0 Baso # 0.0 Neutrophils % (Manual) 92 H Band Neutrophils % 2 Lymphocytes % (Manual) 6 L Monocytes % (Manual) TEST NOT PERFORMED Platelet Estimate Normal RBC Morphology Normal pO2 VBG pH VBG pCO2 VBG HCO3 VBG Total CO2 VBG O2 Sat (Calc) VBG Base Excess VBG Potassium Glucose Lactate Sodium Potassium Chloride Carbon Dioxide Anion Gap BUN Creatinine Est GFR ( Amer) Est GFR (Non-Af Amer) Random Glucose Hemoglobin A1c Calcium Phosphorus Magnesium Total Bilirubin AST ALT Alkaline Phosphatase Total Creatine Kinase 235 H CK-MB (Mass) 1.32 Troponin I, Quant 0.0140 NT-Pro-B Natriuret Pep Total Protein Albumin Globulin Albumin/Globulin Ratio Triglycerides Cholesterol LDL Cholesterol Direct HDL Cholesterol Free T4 0.98 TSH 3rd Generation Venous Blood Potassium Urine Color Urine Clarity Urine pH Ur Specific [place] Urine Protein Urine Glucose (UA) Urine Ketones Urine Blood Urine Nitrate Urine Bilirubin Urine Urobilinogen Ur Leukocyte Esterase Urine WBC (Auto) Urine RBC (Auto) Urine Bacteria Influenza Typ A,B (EIA) 09/04/17 09/04/17 07:44 11:16 WBC RBC Hgb Hct MCV MCH MCHC RDW Plt Count MPV Neut % (Auto) Lymph % (Auto) [place] % (Auto) Eos % (Auto) Baso % (Auto) Neut # Lymph # [place] # Eos # Baso # Neutrophils % (Manual) Band Neutrophils % Lymphocytes % (Manual) Monocytes % (Manual) Platelet Estimate RBC Morphology pO2 VBG pH VBG pCO2 VBG HCO3 VBG Total CO2 VBG O2 Sat (Calc) VBG Base Excess VBG Potassium Glucose Lactate Sodium Potassium Chloride Carbon Dioxide Anion Gap BUN Creatinine Est GFR ( Amer) Est GFR (Non-Af Amer) Random Glucose Hemoglobin A1c 6.2 Calcium Phosphorus Magnesium Total Bilirubin AST ALT Alkaline Phosphatase Total Creatine Kinase CK-MB (Mass) Troponin I, Quant NT-Pro-B Natriuret Pep Total Protein Albumin Globulin Albumin/Globulin Ratio Triglycerides Cholesterol LDL Cholesterol Direct HDL Cholesterol Free T4 TSH 3rd Generation Venous Blood Potassium Urine Color Yellow Urine Clarity Hazy Urine pH 5.0 Ur Specific [place] 1.033 H Urine Protein 1+ H Urine Glucose (UA) 1+ H Urine Ketones Trace Urine Blood Negative Urine Nitrate Negative Urine Bilirubin Negative Urine Urobilinogen 2.0 Ur Leukocyte Esterase Neg Urine WBC (Auto) 1 Urine RBC (Auto) 2 Urine Bacteria Rare Influenza Typ A,B (EIA) Assessment & Plan (1) Bronchitis Status: Acute Comment: 37-year-old male presented with productive cough and worsening shortness of breath consistent with bronchitis. Continue antibiotics IV steroids and nebulizer treatment. Repeat chest x-ray (2) Asthma with exacerbation Status: Acute
--- NOTE | 2017-09-04 18:22 | CP.PCM.CON ---
History of Present Illness - History of Present Illness History of Present Illness: I was asked to see patient by medical service. Patient is a 37year old male with PMH dilated cardiomyopathy s/p subcutaneous AICD, HTN, obesity who presents with productive cough. The patient states symptoms have been progressive and described as cough with associated dyspnea. The patient presented to [facility] for further management. He was previously on Coreg, bt did not tolerate, and therefore he was recently changed to Toprol XL. Review of Systems - Constitutional Constitutional: absent: As Per HPI, Anorexia, Chills, Daytime Sleepiness, Excessive Sweating, Fatigue, Fever, Frequent Falls, Headache, Increased Appetite , Lethargy, Malaise, Night Sweats, Snoring, Sleep Apnea, Weight Gain, Weight Loss, Weakness, Other - EENT Eyes: absent: As Per HPI, Blind Spots, Blurred Vision, Change in Vision, Decreased Night Vision, Diplopia, Discharge, Dry Eye, Exophthalmos, Floaters, Irritation, Itchy Eyes, Loss of Peripheral Vision, Pain, Photophobia, Requires Corrective Lenses, Sees Flashes, Spots in Vision, Tunnel Vision, Other Visual Disturbances, Loss of Vision, Other Ears: absent: As Per HPI, Decreased Hearing, Ear Discharge, Ear Pain, Tinnitus, Abnormal Hearing, Disequilibrium, Dizziness, Other Nose/Mouth/Throat: absent: As Per HPI, Epistaxis, Nasal Congestion, Nasal Discharge, Nasal Obstruction, Nasal Trauma, Nose Pain, Post Nasal Drip, Sinus Pain, Sinus Pressure, Bleeding Gums, Change in Voice, Dental Pain, Dry Mouth, Dysphagia, Halitosis, Hoarsness, Lip Swelling, Mouth Lesions, Mouth Pain, Odynophagia, Sore Throat, Throat Swelling, Tongue Swelling, Facial Pain, Neck Pain, Neck Mass, Other - Cardiovascular Cardiovascular: Dyspnea, Pedal Edema - Respiratory Respiratory: absent: As Per HPI, Cough, Dyspnea, Hemoptysis, Dyspnea on Exertion , Wheezing, Snoring, Stridor, Pain on Inspiration, Chest Congestion, Excessive Mucous Production, Change in Mucous Color, Pain with Coughing, Other - Gastrointestinal Gastrointestinal: absent: As Per HPI, Abdominal Pain, Belching, Bloating, Change in Bowel Habits, Change in Stool Character, Coffee Ground Emesis, Constipation, Cramping, Diarrhea, Dyspepsia, Dysphagia, Early Satiety, Excessive Flatus, Fecal Incontinence, Heartburn, Hematemesis, Hematochezia, Loose Stools, Melena, Nausea, Odynophagia, Temesmus, Vomiting, Other - Genitourinary Genitourinary: absent: As Per HPI, Change in Urinary Stream, Difficulty Urinating, Dysuria, Flank Pain, Hematuria, Pyuria, Nocturia, Urinary Incontinence, Urinary Frequency, Urinary Hesitance, Urinary Urgency, Voiding Freq/Small Amts, Freq UTI, Hx Renal/Bladder Calculi, Hx /Renal Surgery, Bladder Distension, Other - Musculoskeletal Musculoskeletal: absent: As Per HPI, Abnormal Gait, Arthralgias, Atrophy, Back Pain, Deformity, Joint Swelling, Limited Range of Motion, Loss of Height, Muscle Cramps, Muscle Weakness, Myalgias, Neck Pain, Numbness, Radiating Pain into Limb, Stiffness, Tingling, Other - Integumentary Integumentary: absent: As Per HPI, Acne, Alopecia, Bleeding Lesions, Change in Hair, Change in Nails, Change in Pigmentation, Changing Lesions, Dry Skin, Erythema, Furuncle, Hirsutism, Lesions, New Lesions, Non-Healing Lesions, Photosensitivity, Pruritus, Rash, Skin Pain, Skin Ulcer, Sores, Striae, Swelling , Unusual Bruising, Wounds, Jaundice, Other - Neurological Neurological: absent: As Per HPI, Abnormal Gait, Abnormal Hearing, Abnormal Movements, Abnormal Speech, Behavioral Changes, Burning Sensations, Confusion, Convulsions, Disequilibrium, Dizziness, Numbness, Focal Weakness, Frequent Falls , Headaches, Lack of Coordination, Loss of Vision, Memory Loss, Paresthesias, Radicular Pain, Restless Legs, Sensory Deficit, Syncope, Tingling, Tremor, Vertigo, Weakness, Other Visual Disturbances, Other - Psychiatric Psychiatric: absent: As Per HPI, Abnormal Sleep Pattern, Anhedonia, Anxiety, Auditory Hallucinations, Behavioral Changes, Change in Appetite, Change in Libido, Confusion, Depression, Difficulty Concentrating, Hallucinations, Homicidal Ideation, Hopelessness, Irritability, Memory Loss, Mood Swings, Panic Attacks, Paranoia, Suicidal Ideation, Visual Hallucinations, Tactile Hallucinations, Other - Endocrine Endocrine: absent: As Per HPI, Change in Body Appearance, Change in Libido, Cold Intolorance, Deepening of Voice, Excessive Sweating, Fatigue, Flushing, Heat Intolorance, Increase in Ring/Shoe/Hat Size, Palpitations, Polydipsia, Polyphagia, Polyuria, Other - Hematologic/Lymphatic Hematologic: absent: As Per HPI, Easy Bleeding, Easy Bruising, Lymphadenopathy, Other Past Patient History - Infectious Disease Hx of Infectious Diseases: None - Tetanus Immunizations Tetanus Immunization: Unknown - Past Medical History & Family History Past Medical History?: Yes - Past Social History Smoking Status: Never Smoked - CARDIAC Hx Congestive Heart Failure: Yes Hx Hypertension: Yes - PULMONARY Hx Bronchitis: Yes - NEUROLOGICAL Hx Neurological Disorder: No - HEENT Hx HEENT Problems: No - RENAL Hx Chronic Kidney Disease: No - ENDOCRINE/METABOLIC Hx Endocrine Disorders: No - HEMATOLOGICAL/ONCOLOGICAL Hx Blood Disorders: No - INTEGUMENTARY Hx Dermatological Problems: No - MUSCULOSKELETAL/RHEUMATOLOGICAL Hx Musculoskeletal Disorders: No Hx Falls: No - GASTROINTESTINAL Other/Comment: hx appendicitis - GENITOURINARY/GYNECOLOGICAL Hx Genitourinary Disorders: No - PSYCHIATRIC Hx Substance Use: No - SURGICAL HISTORY Hx Appendectomy: Yes - ANESTHESIA Hx Anesthesia: Yes Hx Anesthesia Reactions: No Meds Allergies/Adverse Reactions: Allergies Allergy/AdvReac Type Severity Reaction Status Date / Time No Known Allergies Allergy Verified 09/20/16 18:36 - Medications Medications: Current Medications Albuterol/Ipratropium (Duoneb 3 Mg/0.5 Mg (3 Ml) Ud) 3 ml INH RQ4 [facility] Last Admin: 09/04/17 16:47 Dose: 3 ml Enalapril Maleate (Vasotec) 5 mg PO BID [facility] Last Admin: 09/04/17 11:38 Dose: 5 mg Famotidine (Pepcid) 20 mg PO BID [facility] Last Admin: 09/04/17 09:51 Dose: 20 mg Furosemide (Lasix) 40 mg IVP DAILY [facility] Last Admin: 09/04/17 09:48 Dose: 40 mg Heparin Sodium (Porcine) (Heparin) 5,000 units SC Q8 [facility] Last Admin: 09/04/17 14:21 Dose: 5,000 units Moxifloxacin HCl (Avelox Iv 400mg/250ml Ns) 400 mg in 250 mls @ 167 mls/hr IVPB Q24H [facility] Methylprednisolone (Solu-Medrol) 40 mg IVP Q6H [facility] Last Admin: 09/04/17 11:44 Dose: 40 mg Metoprolol Succinate (Toprol Xl) 25 mg PO DAILY [facility] Pneumococcal Polyvalent Vaccine (Pneumovax 23 Vaccine) 0.5 ml IM .ONCE ONE Stop: 09/05/17 10:01 Spironolactone (Aldactone) 25 mg PO BID [facility] Last Admin: 09/04/17 09:51 Dose: 25 mg Physical Exam - Constitutional Appears: Non-toxic - Head Exam Head Exam: NORMAL INSPECTION - Eye Exam Eye Exam: Normal appearance - ENT Exam ENT Exam: Mucous Membranes Moist - Neck Exam Neck exam: Positive for: Normal Inspection - Respiratory Exam Respiratory Exam: Decreased Breath Sounds - Cardiovascular Exam Cardiovascular Exam: REGULAR RHYTHM - GI/Abdominal Exam GI & Abdominal Exam: Normal Bowel Sounds - Rectal Exam Rectal Exam: Deferred - Extremities Exam Extremities exam: Positive for: pedal pulses present - Back Exam Back exam: NORMAL INSPECTION - Neurological Exam Neurological exam: Alert, Oriented x3 - Psychiatric Exam Psychiatric exam: Normal Affect - Skin Skin Exam: Normal Color Results - Vital Signs Recent Vital Signs: Last Vital Signs Temp 97.8 F 09/04/17 16:01 Pulse 110 H 09/04/17 16:01 Resp 18 09/04/17 16:01 BP 110/59 L 09/04/17 16:01 Pulse Ox 95 09/04/17 16:01 - Labs Result Diagrams: 09/04/17 07:18 09/04/17 02:37 Labs: Laboratory Results - last 24 hr 09/03/17 09/04/17 09/04/17 21:15 02:37 05:45 WBC RBC Hgb Hct MCV MCH MCHC RDW Plt Count MPV Neut % (Auto) Lymph % (Auto) [place] % (Auto) Eos % (Auto) Baso % (Auto) Neut # Lymph # [place] # Eos # Baso # Neutrophils % (Manual) Band Neutrophils % Lymphocytes % (Manual) Monocytes % (Manual) Platelet Estimate RBC Morphology Sodium 136 Potassium 4.5 Chloride 101 Carbon Dioxide 26 Anion Gap 14 BUN 20 Creatinine 1.0 Est GFR ( Amer) > 60 Est GFR (Non-Af Amer) > 60 Random Glucose 160 H Hemoglobin A1c Calcium 9.3 Phosphorus 1.6 L Magnesium 1.9 Total Bilirubin 0.8 AST 33 ALT 56 Alkaline Phosphatase 78 Total Creatine Kinase 312 H 268 H CK-MB (Mass) 1.63 1.23 Troponin I, Quant 0.0350 0.0210 Total Protein 8.4 H Albumin 4.3 Globulin 4.2 H Albumin/Globulin Ratio 1.0 Triglycerides 86 D Cholesterol 197 LDL Cholesterol Direct 163 H HDL Cholesterol 43 Free T4 TSH 3rd Generation 0.27 L Urine Color Urine Clarity Urine pH Ur Specific [place] Urine Protein Urine Glucose (UA) Urine Ketones Urine Blood Urine Nitrate Urine Bilirubin Urine Urobilinogen Ur Leukocyte Esterase Urine WBC (Auto) Urine RBC (Auto) Urine Bacteria Influenza Typ A,B (EIA) Negative for flu a/b 09/04/17 09/04/17 09/04/17 07:18 07:18 07:44 WBC 14.1 H RBC 4.57 Hgb 14.1 Hct 42.1 MCV 92.2 MCH 30.8 MCHC 33.5 RDW 13.4 Plt Count 340 MPV 8.5 Neut % (Auto) 94.8 H Lymph % (Auto) 4.2 L [place] % (Auto) 0.9 Eos % (Auto) 0.0 Baso % (Auto) 0.1 Neut # 13.4 H Lymph # 0.6 L [place] # 0.1 Eos # 0.0 Baso # 0.0 Neutrophils % (Manual) 92 H Band Neutrophils % 2 Lymphocytes % (Manual) 6 L Monocytes % (Manual) TEST NOT PERFORMED Platelet Estimate Normal RBC Morphology Normal Sodium Potassium Chloride Carbon Dioxide Anion Gap BUN Creatinine Est GFR ( Amer) Est GFR (Non-Af Amer) Random Glucose Hemoglobin A1c Calcium Phosphorus Magnesium Total Bilirubin AST ALT Alkaline Phosphatase Total Creatine Kinase 235 H CK-MB (Mass) 1.32 Troponin I, Quant 0.0140 Total Protein Albumin Globulin Albumin/Globulin Ratio Triglycerides Cholesterol LDL Cholesterol Direct HDL Cholesterol Free T4 0.98 TSH 3rd Generation Urine Color Urine Clarity Urine pH Ur Specific [place] Urine Protein Urine Glucose (UA) Urine Ketones Urine Blood Urine Nitrate Urine Bilirubin Urine Urobilinogen Ur Leukocyte Esterase Urine WBC (Auto) Urine RBC (Auto) Urine Bacteria Influenza Typ A,B (EIA) 09/04/17 09/04/17 07:44 11:16 WBC RBC Hgb Hct MCV MCH MCHC RDW Plt Count MPV Neut % (Auto) Lymph % (Auto) [place] % (Auto) Eos % (Auto) Baso % (Auto) Neut # Lymph # [place] # Eos # Baso # Neutrophils % (Manual) Band Neutrophils % Lymphocytes % (Manual) Monocytes % (Manual) Platelet Estimate RBC Morphology Sodium Potassium Chloride Carbon Dioxide Anion Gap BUN Creatinine Est GFR ( Amer) Est GFR (Non-Af Amer) Random Glucose Hemoglobin A1c 6.2 Calcium Phosphorus Magnesium Total Bilirubin AST ALT Alkaline Phosphatase Total Creatine Kinase CK-MB (Mass) Troponin I, Quant Total Protein Albumin Globulin Albumin/Globulin Ratio Triglycerides Cholesterol LDL Cholesterol Direct HDL Cholesterol Free T4 TSH 3rd Generation Urine Color Yellow Urine Clarity Hazy Urine pH 5.0 Ur Specific [place] 1.033 H Urine Protein 1+ H Urine Glucose (UA) 1+ H Urine Ketones Trace Urine Blood Negative Urine Nitrate Negative Urine Bilirubin Negative Urine Urobilinogen 2.0 Ur Leukocyte Esterase Neg Urine WBC (Auto) 1 Urine RBC (Auto) 2 Urine Bacteria Rare Influenza Typ A,B (EIA) - EKG Data EKG Interpreted by: Myself Assessment & Plan (1) Dilated cardiomyopathy Assessment and Plan: s/p AICD. Echocardiogram reviewed. The LV is dilated ans severly hypokinetic, mild M is noted. add Toprol XL Status: Acute (2) Acute on chronic systolic congestive heart failure, NYHA class 2 Assessment and Plan: continue aldactone Status: Acute
[2017-09-05] MEDS: MethylPREDNISolone 40 mg Vial IVP SCH ×3 (00:21→12:04)
[2017-09-05] MEDS: Albuterol-Ipratrop 3 mg / 0.5 (3 ml) UD INH SCH ×4 (00:45→11:18)
--- NOTE | 2017-09-05 07:23 | CP.PCM.PN ---
<Devaughn William - Last Filed: 09/05/17 10:51> Subjective - Date & Time of Evaluation Date of Evaluation: 09/05/17 Time of Evaluation: 07:19 - Subjective Subjective: PGY-[address] Shields. No acute overnight events noted. Patient seen and examined at bedside this AM. He reports a dry cough that is vastly improved from a few days ago. He denies other complaints. He denied chest pain, shortness of breath, abdominal pain, fever, chills, vomiting, diarrhea. Objective - Vital Signs/Intake and Output Vital Signs (last 24 hours): Temp Pulse Resp BP Pulse Ox 97.9 F 113 H 20 118/73 95 09/05/17 00:20 09/05/17 00:20 09/05/17 00:20 09/05/17 00:20 09/05/17 00:20 Intake and Output: 09/05/17 09/05/17 06:59 18:59 Intake Total 240 Balance 240 - Medications Medications: Current Medications Albuterol/Ipratropium (Duoneb 3 Mg/0.5 Mg (3 Ml) Ud) 3 ml INH RQ4 [facility] Last Admin: 09/05/17 07:18 Dose: 3 ml Enalapril Maleate (Vasotec) 5 mg PO BID [facility] Last Admin: 09/04/17 18:46 Dose: 5 mg Famotidine (Pepcid) 20 mg PO BID [facility] Last Admin: 09/04/17 18:45 Dose: 20 mg Furosemide (Lasix) 40 mg IVP DAILY [facility] Last Admin: 09/04/17 09:48 Dose: 40 mg Heparin Sodium (Porcine) (Heparin) 5,000 units SC Q8 [facility] Last Admin: 09/05/17 06:20 Dose: 5,000 units Moxifloxacin HCl (Avelox Iv 400mg/250ml Ns) 400 mg in 250 mls @ 167 mls/hr IVPB Q24H [facility] Last Admin: 09/04/17 18:44 Dose: 167 mls/hr Methylprednisolone (Solu-Medrol) 40 mg IVP Q6H [facility] Last Admin: 09/05/17 06:20 Dose: 40 mg Metoprolol Succinate (Toprol Xl) 25 mg PO DAILY [facility] Pneumococcal Polyvalent Vaccine (Pneumovax 23 Vaccine) 0.5 ml IM .ONCE ONE Stop: 09/05/17 10:01 Spironolactone (Aldactone) 25 mg PO BID [facility] Last Admin: 09/04/17 18:43 Dose: 25 mg - Labs Labs: 09/04/17 07:18 09/04/17 02:37 - Additional Findings Additional findings: - Constitutional Appears: Non-toxic, No Acute Distress - Head Exam Head Exam: ATRAUMATIC, NORMOCEPHALIC - Eye Exam Eye Exam: EOMI, Normal appearance. absent: Scleral icterus Pupil Exam: PERRL - ENT Exam ENT Exam: Mucous Membranes Moist - Neck Exam Neck exam: Positive for: Normal Inspection. Negative for: Tenderness - Respiratory Exam Respiratory Exam: Wheezes. absent: Clear to Auscultation Bilateral, Rales, Rhonchi, NORMAL BREATHING PATTERN - Cardiovascular Exam Cardiovascular Exam: Tachycardia, +S1, +S2, dyspnea absent: Systolic Murmur - GI/Abdominal Exam GI & Abdominal Exam: Normal Bowel Sounds, Soft, AICD palpable in LUQ absent: Distended, Tenderness - Extremities Exam Extremities exam: Positive for: normal inspection, pedal edema Negative for: tenderness - Back Exam Back exam: absent: CVA tenderness (L), CVA tenderness (R) - Neurological Exam Neurological exam: Alert, Oriented x3 - Psychiatric Exam Psychiatric exam: Normal Affect, Normal Mood - Skin Skin Exam: Dry, Normal Color, Warm Assessment and Plan - Assessment and Plan (Free Text) Assessment: Sepsis Criteria: HR> 90, WBC > 12 Source: ED initially believed possible pneumonia Pt afebrile WBC 16.1 -mild left shift, no bandemia CXR (09/03/17): No active disease (see full report) Lactate 1.1 Blood culture 09/03 (+) for Gram positive cocci F/U urine, sputum culture Influenza typ A,B Negative Asthma exacerbation vs CHF exacerbation vs Bronchitis Admit to telemetry Dr. Quinteros, cardiology consult: help appreciated Dr. Escamilla, pulmonology consult: help appreciated History of systolic CHF, NYHA class 2 - ECHO (09/2016): EF 20-25%, LV moderately dilated, mild-moderate pulm HTN, trace pericardial effusion Initial Ekg showd sinus tachycardia @106 bpm, incomplete LBBB, no acute ST-T wave changes CXR (09/03/17): NAD BNP elevated at 2019 (Previous admissions 4540) WBC elevated @ 16.1 Lipid panel WNL except LDL 163 (high) TSH 0.27 (low), Free T4 WNL Meds: Avelox 400mg IVPB Q24H Lasix 40mg IV Daily Solu-medrol 40mg IV Q6H Duonebs INH Q4H [facility] restart home Enalapril 5mg BID restart home Spironalactone 25 mg daily Metoprolol 50mg PO QD, started 09/04 (previously on coreg, but patient did not tolerate due to bronchospasm) Imaging: ECHO (09/04/2017): LV is dilated and severely hypokinetic (read by Dr Quinteros, still awaiting official report) CXR (09/03/17): No active disease (see full report) HTN Well-controlled restart home Enalapril 5mg BID restart home Spironalactone 25 mg daily Lasix 40mg IV daily Metoprolol 50mg PO QD, started 09/04 (previously on coreg, but patient did not tolerate due to bronchospasm) Hx of non-dilated ischemic cardiomyopathy AICD placement in 2014 Dr. Quinteros, cardiology consult: help appreciated Impaired Glucose tolerance HgbA1C 09/2016: 6.3 HgbA1C 09/04/17: 6.2 Hx of pericardial effusion ECHO (09/2016): EF 20-25%, LV moderately dilated, mild-moderate pulm HTN, trace pericardial effusion ECHO (09/04/2017): LV is dilated and severely hypokinetic (read by Dr Quinteros, still awaiting official report) Prophylactic measures SCDs Heparin 5000 U SC Q12H Pepcid 20mg PO BID <Nando Shields - Last Filed: 09/05/17 14:52> Objective - Vital Signs/Intake and Output Vital Signs (last 24 hours): Temp Pulse Resp BP Pulse Ox 97.7 F 105 H 18 107/70 96 09/05/17 14:37 09/05/17 14:37 09/05/17 14:37 09/05/17 14:37 09/05/17 14:37 Intake and Output: 09/05/17 09/05/17 06:59 18:59 Intake Total 240 Balance 240 - Medications Medications: Current Medications Albuterol/Ipratropium (Duoneb 3 Mg/0.5 Mg (3 Ml) Ud) 3 ml INH RQ4 [facility] Last Admin: 09/05/17 11:18 Dose: 3 ml Enalapril Maleate (Vasotec) 5 mg PO BID [facility] Last Admin: 09/05/17 10:31 Dose: 5 mg Famotidine (Pepcid) 20 mg PO BID [facility] Last Admin: 09/05/17 10:31 Dose: 20 mg Furosemide (Lasix) 40 mg IVP DAILY [facility] Last Admin: 09/05/17 10:31 Dose: 40 mg Heparin Sodium (Porcine) (Heparin) 5,000 units SC Q8 [facility] Last Admin: 09/05/17 14:31 Dose: Not Given Moxifloxacin HCl (Avelox Iv 400mg/250ml Ns) 400 mg in 250 mls @ 167 mls/hr IVPB Q24H [facility] Last Admin: 09/04/17 18:44 Dose: 167 mls/hr Methylprednisolone (Solu-Medrol) 40 mg IVP Q6H [facility] Last Admin: 09/05/17 12:04 Dose: 40 mg Metoprolol Succinate (Toprol Xl) 50 mg PO DAILY [facility] Last Admin: 09/05/17 10:30 Dose: 50 mg Spironolactone (Aldactone) 25 mg PO BID [facility] Last Admin: 09/05/17 10:31 Dose: 25 mg - Labs Labs: 09/05/17 07:26 09/05/17 07:26 Attending/Attestation - Attestation I have personally seen and examined this patient.: Yes I have fully participated in the care of the patient.: Yes I have reviewed all pertinent clinical information, including history, physical exam and plan: Yes Notes (Text): 09/05/17 14:52 Medical attending: Patient was seen and examined by me, agree with the above note by medical care manager. The patient reported that he is feeling much better than previously. He was seen by his general matcher. His medications changed from Coreg over to Toprol. He reports that his breathing has been much easier he is not wheezing like before. He has been on IV Solu-Medrol, and this is probably giving him a higher white blood cell count. He denied having fevers. On exam we had him stand up and walk with us he was able to do so without becoming short of breath, he did not have chest pain, he did not report palpitations. We walked up to the nurses station and his heart rate came up to about 110 it was sinus tach. The patient states that he felt okay during this Insulin will see if we could discharge the patient if this is okay with his general matcher Thank you very much, Nando Shields
--- NOTE | 2017-09-05 07:27 | CP.PCM.PN ---
Subjective - Date & Time of Evaluation Date of Evaluation: 09/05/17 Time of Evaluation: 07:20 - Subjective Subjective: patient has no current chest pain. had mild dyspnea this am. Objective - Vital Signs/Intake and Output Vital Signs (last 24 hours): Temp Pulse Resp BP Pulse Ox 97.9 F 113 H 20 118/73 95 09/05/17 00:20 09/05/17 00:20 09/05/17 00:20 09/05/17 00:20 09/05/17 00:20 Intake and Output: 09/05/17 09/05/17 06:59 18:59 Intake Total 240 Balance 240 - Medications Medications: Current Medications Albuterol/Ipratropium (Duoneb 3 Mg/0.5 Mg (3 Ml) Ud) 3 ml INH RQ4 [facility] Last Admin: 09/05/17 07:18 Dose: 3 ml Enalapril Maleate (Vasotec) 5 mg PO BID [facility] Last Admin: 09/04/17 18:46 Dose: 5 mg Famotidine (Pepcid) 20 mg PO BID [facility] Last Admin: 09/04/17 18:45 Dose: 20 mg Furosemide (Lasix) 40 mg IVP DAILY [facility] Last Admin: 09/04/17 09:48 Dose: 40 mg Heparin Sodium (Porcine) (Heparin) 5,000 units SC Q8 [facility] Last Admin: 09/05/17 06:20 Dose: 5,000 units Moxifloxacin HCl (Avelox Iv 400mg/250ml Ns) 400 mg in 250 mls @ 167 mls/hr IVPB Q24H [facility] Last Admin: 09/04/17 18:44 Dose: 167 mls/hr Methylprednisolone (Solu-Medrol) 40 mg IVP Q6H [facility] Last Admin: 09/05/17 06:20 Dose: 40 mg Metoprolol Succinate (Toprol Xl) 50 mg PO DAILY [facility] Pneumococcal Polyvalent Vaccine (Pneumovax 23 Vaccine) 0.5 ml IM .ONCE ONE Stop: 09/05/17 10:01 Spironolactone (Aldactone) 25 mg PO BID [facility] Last Admin: 09/04/17 18:43 Dose: 25 mg - Labs Labs: 09/04/17 07:18 09/04/17 02:37 - Constitutional Appears: Non-toxic - Head Exam Head Exam: NORMAL INSPECTION - Eye Exam Eye Exam: Normal appearance - ENT Exam ENT Exam: Mucous Membranes Moist - Neck Exam Neck Exam: Full ROM - Respiratory Exam Respiratory Exam: Decreased Breath Sounds - Cardiovascular Exam Cardiovascular Exam: REGULAR RHYTHM - GI/Abdominal Exam GI & Abdominal Exam: Normal Bowel Sounds - Rectal Exam Rectal Exam: Deferred - Extremities Exam Extremities Exam: absent: Pedal Edema - Back Exam Back Exam: NORMAL INSPECTION - Neurological Exam Neurological Exam: Alert - Psychiatric Exam Psychiatric exam: Normal Affect - Skin Skin Exam: Normal Color Assessment and Plan (1) Dilated cardiomyopathy Assessment & Plan: will continue woth medical management. s/p AICD Status: Acute (2) Acute on chronic systolic congestive heart failure, NYHA class 2 Assessment & Plan: titrate bet [place]. remains tachycardic. has some wheezing on examintation. Status: Acute
[2017-09-05 07:33] LABS: HEMATOCRIT 41.8 % (35.0-51.0); LYMPH # 0.6 K/uL (1.0-4.3); LYMPH % 2.4 % (20.0-40.0); MEAN CELL VOLUME 92.7 fL (80.0-94.0); MEAN CORPUSCULAR HGB CONC 33.5 g/dL (33.0-37.0); MEAN PLATELET VOLUME 8.1 fL (7.2-11.7); MONO % 3.7 % (0.0-10.0); NRBC % 0.1 % (0.0-2.0); PLATELET COUNT 379 K/uL (130-400); RED CELL DISTRIBUTION WIDTH 13.5 % (11.5-14.5)
[2017-09-05 07:43] LABS: WHITE BLOOD COUNT 25.8 K/uL (4.8-10.8)
[2017-09-05 07:50] LABS: ALB/GLOB RATIO 1.4 (1.0-2.1); ALKALINE PHOSPHATASE 83 U/L (38-126); ALT/SGPT 58 U/L (21-72); AST/SGOT 34 U/L (17-59); BILIRUBIN,TOTAL 0.8 mg/dL (0.2-1.3); BLOOD UREA NITROGEN 29 mg/dL (9-20); CALCIUM 9.3 mg/dl (8.6-10.4); CARBON DIOXIDE 22 mmol/L (22-30); CHLORIDE 98 mmol/L (98-107); GFR AFRICAN-AMERICAN > 60; GLUCOSE,RANDOM 162 mg/dL (75-110); MAGNESIUM 1.9 mg/dL (1.6-2.3); PHOSPHOROUS 4.5 mg/dL (2.5-4.5); POTASSIUM 4.4 mmol/L (3.6-5.2); SODIUM 135 mmol/L (132-148); TOTAL PROTEIN 7.6 g/dL (6.3-8.3)
[2017-09-05 08:47] LABS: NEUTROPHIL 95 % (50-75); TOTAL CELLS COUNTED 100
[2017-09-05] MEDS ORDERED: Pneumococcal 23-Valent Vaccine IM ONE (10:00)
[2017-09-05] MEDS ORDERED: Metoprolol Succinate 50 mg XL Tab PO SCH (10:00)
[2017-09-05] MEDS ORDERED: Influenza Vaccine 60 mcg/0.5 mL SYR (4YR UP) IM ONE (10:00)
--- NOTE | 2017-09-05 11:02 | CP.PCM.DIS ---
<Devaughn William - Last Filed: 09/05/17 10:52> Provider - Provider Date of Admission: 09/03/17 18:29 Attending physician: Oren Bolanos MD Primary care physician: Dr moreira Consults: Cardiology - Dr Quinteros Pulmonology - Dr Escamilla Time Spent in preparation of Discharge (in minutes): 45 Diagnosis - Discharge Diagnosis (1) Bronchitis Status: Resolved Priority: Medium (2) Acute on chronic systolic congestive heart failure, NYHA class 2 Status: Chronic Priority: High Hospital Course - Lab Results Lab Results: Micro Results 09/03/17 20:41 Urine Urine Culture - Final No Growth (<1,000 CFU/ML) 09/03/17 18:10 Blood Blood Culture - Preliminary NO GROWTH AFTER 24 HOURS 09/03/17 Unknown Blood Blood Culture - Preliminary Gram Positive Cocci 09/03/17 Unknown Blood Gram Stain - Final Most Recent Lab Values WBC 25.8 K/uL (4.8-10.8) H D 09/05/17 07:26 RBC 4.51 Mil/uL (4.40-5.90) 09/05/17 07:26 Hgb 14.0 g/dL (12.0-18.0) 09/05/17 07:26 Hct 41.8 % (35.0-51.0) 09/05/17 07:26 MCV 92.7 fL (80.0-94.0) 09/05/17 07:26 MCH 31.0 pg (27.0-31.0) 09/05/17 07:26 MCHC 33.5 g/dL (33.0-37.0) 09/05/17 07:26 RDW 13.5 % (11.5-14.5) 09/05/17 07:26 Plt Count 379 K/uL (130-400) 09/05/17 07:26 MPV 8.1 fL (7.2-11.7) 09/05/17 07:26 Neut % (Auto) 93.9 % (50.0-75.0) H 09/05/17 07:26 Lymph % (Auto) 2.4 % (20.0-40.0) L 09/05/17 07:26 [place] % (Auto) 3.7 % (0.0-10.0) 09/05/17 07:26 Eos % (Auto) 0.0 % (0.0-4.0) 09/05/17 07:26 Baso % (Auto) 0.0 % (0.0-2.0) 09/05/17 07:26 Neut # 24.2 K/uL (1.8-7.0) H 09/05/17 07:26 Lymph # 0.6 K/uL (1.0-4.3) L 09/05/17 07:26 [place] # 1.0 K/uL (0.0-0.8) H 09/05/17 07:26 Eos # 0.0 K/uL (0.0-0.7) 09/05/17 07:26 Baso # 0.0 K/uL (0.0-0.2) 09/05/17 07:26 Neutrophils % (Manual) 95 % (50-75) H 09/05/17 07:26 Band Neutrophils % 2 % (0-2) 09/04/17 07:18 Lymphocytes % (Manual) 2 % (20-40) L 09/05/17 07:26 Monocytes % (Manual) 3 % (0-10) 09/05/17 07:26 Platelet Estimate Normal (NORMAL) 09/05/17 07:26 RBC Morphology Normal 09/05/17 07:26 pO2 51 mm/Hg (30-55) 09/03/17 17:35 VBG pH 7.42 (7.32-7.43) 09/03/17 17:35 VBG pCO2 43 mmHg (40-60) 09/03/17 17:35 VBG HCO3 26.9 mmol/L 09/03/17 17:35 VBG Total CO2 29.2 mmol/L (22-28) H 09/03/17 17:35 VBG O2 Sat (Calc) 89.0 % (40-65) H 09/03/17 17:35 VBG Base Excess 2.9 mmol/L (0.0-2.0) H 09/03/17 17:35 VBG Potassium 3.9 mmol/L (3.6-5.2) 09/03/17 17:35 Sodium 137.0 mmol/l (132-148) 09/03/17 17:35 Chloride 104.0 mmol/L (98-107) 09/03/17 17:35 Glucose 128 mg/dl (75-110) H 09/03/17 17:35 Lactate 1.1 mmol/L (0.7-2.1) 09/03/17 17:35 Sodium 135 mmol/L (132-148) 09/05/17 07:26 Potassium 4.4 mmol/L (3.6-5.2) 09/05/17 07:26 Chloride 98 mmol/L (98-107) 09/05/17 07:26 Carbon Dioxide 22 mmol/L (22-30) 09/05/17 07:26 Anion Gap 19 (10-20) 09/05/17 07:26 BUN 29 mg/dL (9-20) H 09/05/17 07:26 Creatinine 1.1 mg/dL (0.8-1.5) 09/05/17 07:26 Est GFR ( Amer) > 60 09/05/17 07:26 Est GFR (Non-Af Amer) > 60 09/05/17 07:26 Random Glucose 162 mg/dL (75-110) H 09/05/17 07:26 Hemoglobin A1c 6.2 % (4.2-6.5) 09/04/17 07:44 Calcium 9.3 mg/dl (8.6-10.4) 09/05/17 07:26 Phosphorus 4.5 mg/dL (2.5-4.5) 09/05/17 07:26 Magnesium 1.9 mg/dL (1.6-2.3) 09/05/17 07:26 Total Bilirubin 0.8 mg/dL (0.2-1.3) 09/05/17 07:26 AST 34 U/L (17-59) 09/05/17 07:26 ALT 58 U/L (21-72) 09/05/17 07:26 Alkaline Phosphatase 83 U/L (38-126) 09/05/17 07:26 Total Creatine Kinase 235 U/L (55-170) H 09/04/17 07:44 CK-MB (Mass) 1.32 ng/mL (0.0-3.38) 09/04/17 07:44 Troponin I, Quant 0.0140 ng/mL (0.00-0.120) 09/04/17 07:44 NT-Pro-B Natriuret Pep 2020 pg/mL (0-450) H 09/03/17 17:21 Total Protein 7.6 g/dL (6.3-8.3) 09/05/17 07:26 Albumin 4.4 g/dL (3.5-5.0) 09/05/17 07:26 Globulin 3.2 gm/dL (2.2-3.9) 09/05/17 07:26 Albumin/Globulin Ratio 1.4 (1.0-2.1) 09/05/17 07:26 Triglycerides 86 mg/dL (0-149) D 09/04/17 02:37 Cholesterol 197 mg/dL (0-199) 09/04/17 02:37 LDL Cholesterol Direct 163 mg/dL (0-129) H 09/04/17 02:37 HDL Cholesterol 43 mg/dL (30-70) 09/04/17 02:37 Free T4 0.98 ng/dL (0.78-2.19) 09/04/17 07:18 TSH 3rd Generation 0.27 mIU/L (0.46-4.68) L 09/04/17 02:37 Venous Blood Potassium 3.9 mmol/L (3.6-5.2) 09/03/17 17:35 Urine Color Yellow (YELLOW) 09/04/17 11:16 Urine Clarity Hazy (Clear) 09/04/17 11:16 Urine pH 5.0 (5.0-8.0) 09/04/17 11:16 Ur Specific [place] 1.033 (1.003-1.030) H 09/04/17 11:16 Urine Protein 1+ mg/dL (NEGATIVE) H 09/04/17 11:16 Urine Glucose (UA) 1+ mg/dL (Normal) H 09/04/17 11:16 Urine Ketones Trace mg/dL (NEGATIVE) 09/04/17 11:16 Urine Blood Negative (NEGATIVE) 09/04/17 11:16 Urine Nitrate Negative (NEGATIVE) 09/04/17 11:16 Urine Bilirubin Negative (NEGATIVE) 09/04/17 11:16 Urine Urobilinogen 2.0 mg/dL (0.2-1.0) 09/04/17 11:16 Ur Leukocyte Esterase Neg Carlos/uL (Negative) 09/04/17 11:16 Urine WBC (Auto) 1 /hpf (0-5) 09/04/17 11:16 Urine RBC (Auto) 2 /hpf (0-3) 09/04/17 11:16 Urine Bacteria Rare (<OCC) 09/04/17 11:16 Influenza Typ A,B (EIA) Negative for flu a/b (NEGATIVE) 09/04/17 05:45 - Hospital Course Hospital Course: CC: SOB HPI: Patient is a 37 year old male, with PMHx of asthma, TIFFANIE, systolic CHF, HTN, impaired glucose tolerance, dilated non-ischemic cardiomyopathy, s/p AICD, who presented to the emergency room with complaint of worsening cold symptoms. He states he first noticed "nasal congestion" and dry cough 3-4 days ago, and they have gradually gotten worse. Cough has now become productive with yellow sputum. Patient states his "chest feels tight" and it is getting harder for him to take a deep breath. He denies any sick contacts. Patient states he uses no inhalers at home, but does have a nebulizer he is uses a couple of times "when he feels like he needs it." When asked about his daily activity, he has been able to work at his job in a [employer] with exertion, without issue, except for today when he knew he would be unable to get through his shift. He states is able to lay flat and does not need to be propped up. He denies fever, chills, chest pain, palpitations, abdominal pain, N/V/D/C. He denies prior intubations for asthma, but admits recent ED visit on 07/02/17 for similar symptoms. 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 Quinteros Past medical hx: asthma, TIFFANIE, systolic CHF, HTN, impaired glucose tolerance, dilated non-ischemic cardiomyopathy, s/p AICD Past surgical hx: appendectomy, defibrillator placement (2014) Family hx: father had CAD, obesity and DM throughout family Social hx: lives with significant other, denies tobacco, alcohol, use or drugs; works in [employer] Allergies: none HOSPITAL COURSE: This is a patient who was treated for asthma exacerbation vs CHF exacerbation vs bronchitis. Dr Quinteros, cardiology, and Dr Escamilla, pulmonology, were both consulted. On admission patient met sepsis criteria (Criteria: HR> 90, WBC > 12 , Source: ED initially believed possible pneumonia). A CXR however showed no active disease. His blood culture came back (+) for gram positive cocci, however only 1 of the blood culture bottles was positive. He tested negative for influenza. Given his cardiac history (History of systolic CHF, NYHA class 2 , EF 20-25%) he was admitted to telemetry. An initial EKG showed sinus tachycardia @106 bpm, incomplete LBBB, no acute ST-T wave changes. His BNP was elevated at 2020 which is reduced from a previous admission 4540. A lipid panel was done which was WNL except LDL 163 (high). His TSH was low at 0.27, his Free T4 was normal. An ECHO was done on this admission which was read by Dr Quinteros as "LV is dilated and severely hypokinetic). He was given the following medications to resolve his symptoms: Meds: Avelox 400mg IVPB Q24H Lasix 40mg IV Daily Solu-medrol 40mg IV Q6H Duonebs INH Q4H SHANNAN restart home Enalapril 5mg BID restart home Spironalactone 25 mg daily Metoprolol 50mg PO QD, started 09/04 (previously on vanessa med coreg, but patient did not tolerate due to bronchospasm) Heparin 5000 U SC Q12H Pepcid 20mg PO BID At discharge the patient only had a minor dry cough. He was able to ambulate with some mild shortness of breath. We recommended he stay 1 more night but the patient was insistent he go home. At discharge he had an elevated WBC, which is most likely secondary to the steroids. He was afebrile throughout the admission. His blood culture was most likely a contaminant given only 1 bottle was positive and given his vitals and lab work. He had tachycardia much of the admission which is likely secondary to the beta agonists he was receiving for breathing treatment. Discharge instructions are shown below along with discharge medications. Discharge Exam - Head Exam Head Exam: NORMAL INSPECTION - Additional Findings Additional findings: - Constitutional Appears: Non-toxic, No Acute Distress - Head Exam Head Exam: ATRAUMATIC, NORMOCEPHALIC - Eye Exam Eye Exam: EOMI, Normal appearance. absent: Scleral icterus Pupil Exam: PERRL - ENT Exam ENT Exam: Mucous Membranes Moist - Neck Exam Neck exam: Positive for: Normal Inspection. Negative for: Tenderness - Respiratory Exam Respiratory Exam: Wheezes bilaterally. absent: Clear to Auscultation Bilateral , Rales, Rhonchi, NORMAL BREATHING PATTERN - Cardiovascular Exam Cardiovascular Exam: Tachycardia, +S1, +S2, dyspnea absent: Systolic Murmur - GI/Abdominal Exam GI & Abdominal Exam: Normal Bowel Sounds, Soft, AICD palpable in LUQ absent: Distended, Tenderness - Extremities Exam Extremities exam: Positive for: normal inspection, pedal edema Negative for: tenderness - Back Exam Back exam: absent: CVA tenderness (L), CVA tenderness (R) - Neurological Exam Neurological exam: Alert, Oriented x3 - Psychiatric Exam Psychiatric exam: Normal Affect, Normal Mood - Skin Skin Exam: Dry, Normal Color, Warm Discharge Plan - Discharge Medications Prescriptions: Budesonide [Pulmicort Respules] 0.25 mg IH BID #1 neb Metoprolol Succinate [Toprol XL] 50 mg PO DAILY 30 Days #30 tab predniSONE [Prednisone] 10 mg PO BID 5 Days #10 tab predniSONE [Prednisone] 10 mg PO DAILY 5 Days #5 tab - Follow Up Plan Condition: FAIR Disposition: HOME/ ROUTINE Instructions: Metoprolol (By mouth), Prednisone (By mouth), Budesonide (By breathing), Heart Failure (DC), Asthma (DC), Heart Healthy Diet (DC), Pneumonia (DC) Additional Instructions: Patient is medically stable for discharge. 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 Patient is to follow up with his PMD, Dr Lillie, so patient's PMD is aware of this admission and evaluation patient with follow-up care. If symptoms return or worsen, patient is to return to ER. Referrals: Mu Moreira MD [Staff Provider] - Martin Quinteros MD [Staff Provider] - <Nando Shields - Last Filed: 09/05/17 14:59> Provider - Provider Date of Admission: 09/03/17 18:29 Attending physician: Oren Bolanos MD Hospital Course - Lab Results Lab Results: Micro Results 09/03/17 20:41 Urine Urine Culture - Final No Growth (<1,000 CFU/ML) 09/03/17 18:10 Blood Blood Culture - Preliminary NO GROWTH AFTER 24 HOURS 09/03/17 Unknown Blood Blood Culture - Preliminary Gram Positive Cocci 09/03/17 Unknown Blood Gram Stain - Final Most Recent Lab Values WBC 25.8 K/uL (4.8-10.8) H D 09/05/17 07:26 RBC 4.51 Mil/uL (4.40-5.90) 09/05/17 07:26 Hgb 14.0 g/dL (12.0-18.0) 09/05/17 07:26 Hct 41.8 % (35.0-51.0) 09/05/17 07:26 MCV 92.7 fL (80.0-94.0) 09/05/17 07:26 MCH 31.0 pg (27.0-31.0) 09/05/17 07:26 MCHC 33.5 g/dL (33.0-37.0) 09/05/17 07:26 RDW 13.5 % (11.5-14.5) 09/05/17 07:26 Plt Count 379 K/uL (130-400) 09/05/17 07:26 MPV 8.1 fL (7.2-11.7) 09/05/17 07:26 Neut % (Auto) 93.9 % (50.0-75.0) H 09/05/17 07:26 Lymph % (Auto) 2.4 % (20.0-40.0) L 09/05/17 07:26 [place] % (Auto) 3.7 % (0.0-10.0) 09/05/17 07:26 Eos % (Auto) 0.0 % (0.0-4.0) 09/05/17 07:26 Baso % (Auto) 0.0 % (0.0-2.0) 09/05/17 07:26 Neut # 24.2 K/uL (1.8-7.0) H 09/05/17 07:26 Lymph # 0.6 K/uL (1.0-4.3) L 09/05/17 07:26 [place] # 1.0 K/uL (0.0-0.8) H 09/05/17 07:26 Eos # 0.0 K/uL (0.0-0.7) 09/05/17 07:26 Baso # 0.0 K/uL (0.0-0.2) 09/05/17 07:26 Neutrophils % (Manual) 95 % (50-75) H 09/05/17 07:26 Band Neutrophils % 2 % (0-2) 09/04/17 07:18 Lymphocytes % (Manual) 2 % (20-40) L 09/05/17 07:26 Monocytes % (Manual) 3 % (0-10) 09/05/17 07:26 Platelet Estimate Normal (NORMAL) 09/05/17 07:26 RBC Morphology Normal 09/05/17 07:26 pO2 51 mm/Hg (30-55) 09/03/17 17:35 VBG pH 7.42 (7.32-7.43) 09/03/17 17:35 VBG pCO2 43 mmHg (40-60) 09/03/17 17:35 VBG HCO3 26.9 mmol/L 09/03/17 17:35 VBG Total CO2 29.2 mmol/L (22-28) H 09/03/17 17:35 VBG O2 Sat (Calc) 89.0 % (40-65) H 09/03/17 17:35 VBG Base Excess 2.9 mmol/L (0.0-2.0) H 09/03/17 17:35 VBG Potassium 3.9 mmol/L (3.6-5.2) 09/03/17 17:35 Sodium 137.0 mmol/l (132-148) 09/03/17 17:35 Chloride 104.0 mmol/L (98-107) 09/03/17 17:35 Glucose 128 mg/dl (75-110) H 09/03/17 17:35 Lactate 1.1 mmol/L (0.7-2.1) 09/03/17 17:35 Sodium 135 mmol/L (132-148) 09/05/17 07:26 Potassium 4.4 mmol/L (3.6-5.2) 09/05/17 07:26 Chloride 98 mmol/L (98-107) 09/05/17 07:26 Carbon Dioxide 22 mmol/L (22-30) 09/05/17 07:26 Anion Gap 19 (10-20) 09/05/17 07:26 BUN 29 mg/dL (9-20) H 09/05/17 07:26 Creatinine 1.1 mg/dL (0.8-1.5) 09/05/17 07:26 Est GFR ( Amer) > 60 09/05/17 07:26 Est GFR (Non-Af Amer) > 60 09/05/17 07:26 Random Glucose 162 mg/dL (75-110) H 09/05/17 07:26 Hemoglobin A1c 6.2 % (4.2-6.5) 09/04/17 07:44 Calcium 9.3 mg/dl (8.6-10.4) 09/05/17 07:26 Phosphorus 4.5 mg/dL (2.5-4.5) 09/05/17 07:26 Magnesium 1.9 mg/dL (1.6-2.3) 09/05/17 07:26 Total Bilirubin 0.8 mg/dL (0.2-1.3) 09/05/17 07:26 AST 34 U/L (17-59) 09/05/17 07:26 ALT 58 U/L (21-72) 09/05/17 07:26 Alkaline Phosphatase 83 U/L (38-126) 09/05/17 07:26 Total Creatine Kinase 235 U/L (55-170) H 09/04/17 07:44 CK-MB (Mass) 1.32 ng/mL (0.0-3.38) 09/04/17 07:44 Troponin I, Quant 0.0140 ng/mL (0.00-0.120) 09/04/17 07:44 NT-Pro-B Natriuret Pep 2020 pg/mL (0-450) H 09/03/17 17:21 Total Protein 7.6 g/dL (6.3-8.3) 09/05/17 07:26 Albumin 4.4 g/dL (3.5-5.0) 09/05/17 07:26 Globulin 3.2 gm/dL (2.2-3.9) 09/05/17 07:26 Albumin/Globulin Ratio 1.4 (1.0-2.1) 09/05/17 07:26 Triglycerides 86 mg/dL (0-149) D 09/04/17 02:37 Cholesterol 197 mg/dL (0-199) 09/04/17 02:37 LDL Cholesterol Direct 163 mg/dL (0-129) H 09/04/17 02:37 HDL Cholesterol 43 mg/dL (30-70) 09/04/17 02:37 Free T4 0.98 ng/dL (0.78-2.19) 09/04/17 07:18 TSH 3rd Generation 0.27 mIU/L (0.46-4.68) L 09/04/17 02:37 Venous Blood Potassium 3.9 mmol/L (3.6-5.2) 09/03/17 17:35 Urine Color Yellow (YELLOW) 09/04/17 11:16 Urine Clarity Hazy (Clear) 09/04/17 11:16 Urine pH 5.0 (5.0-8.0) 09/04/17 11:16 Ur Specific [place] 1.033 (1.003-1.030) H 09/04/17 11:16 Urine Protein 1+ mg/dL (NEGATIVE) H 09/04/17 11:16 Urine Glucose (UA) 1+ mg/dL (Normal) H 09/04/17 11:16 Urine Ketones Trace mg/dL (NEGATIVE) 09/04/17 11:16 Urine Blood Negative (NEGATIVE) 09/04/17 11:16 Urine Nitrate Negative (NEGATIVE) 09/04/17 11:16 Urine Bilirubin Negative (NEGATIVE) 09/04/17 11:16 Urine Urobilinogen 2.0 mg/dL (0.2-1.0) 09/04/17 11:16 Ur Leukocyte Esterase Neg Carlos/uL (Negative) 09/04/17 11:16 Urine WBC (Auto) 1 /hpf (0-5) 09/04/17 11:16 Urine RBC (Auto) 2 /hpf (0-3) 09/04/17 11:16 Urine Bacteria Rare (<OCC) 09/04/17 11:16 Influenza Typ A,B (EIA) Negative for flu a/b (NEGATIVE) 09/04/17 05:45 Attending/Attestation - Attestation I have personally seen and examined this patient.: Yes I have fully participated in the care of the patient.: Yes I have reviewed all pertinent clinical information, including history, physical exam and plan: Yes Notes (Text): 09/05/17 14:58 Medical attending: Patient was seen and examined by me, agree with the above note by medical office administrator. As mentioned previously we had the patient walk around with us, he was able to do so without any difficulty. He was not short of breath walking around denied chest pain denied palpitations. He initially had a lot of admission, he did receive a lot of IV Solu-Medrol and this is often a lot of his difficulty breathing. We'll send him with a temporary Pulmicort inhaler. We will not send with on albuterol inhaler because he does have a history of tachycardia. As mentioned previously has an extensive cardiac history including AICD at a very young age and also low ejection fraction Thank you very much, Nando Shields
--- NOTE | 2017-09-05 13:41 | CARD ---
APPROVED REPORT EXAM: Two-dimensional and M-mode echocardiogram with Doppler, color Doppler with contrast. Other Information Quality : GoodRhythm : INDICATION Chest Pain Congestive Heart Failure s/p AICD 2D DIMENSIONS IVSd0.9 (0.7-1.1cm)LVDd8.1 (3.9-5.9cm) PWd0.9 (0.7-1.1cm)LVDs7.2 (2.5-4.0cm) FS (%) 11.1 %LVEF (%)23.1 (>50%) M-Mode DIMENSIONS Left Atrium (MM)5.80 (2.5-4.0cm)Aortic Root3.82 (2.2-3.7cm) Aortic Cusp Exc.2.46 (1.5-2.0cm) Mitral Valve E/A ratio0.0 TDI E/Lateral E'0.0E/Medial E'0.0 Tricuspid Valve TR Peak [id number] Peak [id number] LEFT VENTRICLE The Left Ventricle is severely dilated. There is normal left ventricular wall thickness. The systolic function is severely impaired. Regional wall motion abnormalities noted. There is global hypokinesis of the left ventricle. The left ventricular diastolic function is normal. No left ventricle thrombus noted on this study. There is no ventricular septal defect visualized. There is no left ventricular aneurysm. There is no mass noted in the left ventricle. RIGHT VENTRICLE The right ventricle is normal size. There is normal right ventricular wall thickness. The right ventricular systolic function is normal. ATRIA The left atrium is severely dilated. The right atrium size is normal. AORTIC VALVE The aortic valve is normal in structure. There is trace aortic regurgitation. There is no aortic valvular stenosis. There is no aortic valvular vegetation. MITRAL VALVE The mitral valve is normal in structure. There is no mitral valve stenosis. Mitral regurgitation is mild. TRICUSPID VALVE The tricuspid valve is normal in structure. There is no tricuspid valve regurgitation noted. PULMONIC VALVE The pulmonary valve is normal in structure. There is no pulmonic valvular regurgitation. GREAT VESSELS The aortic root is normal in size. The ascending aorta is normal in size. The pulmonary artery is normal. The IVC is normal in size and collapses >50% with inspiration. PERICARDIAL EFFUSION There is no pericardial effusion. <Conclusion> The Left Ventricle is severely dilated. The systolic function is severely impaired. Regional wall motion abnormalities noted. There is global hypokinesis of the left ventricle. The left atrium is severely dilated. Mitral regurgitation is mild. SEVERE CONGESTIVE CARDIOMYOPATHY WITH LVEF OF 23%.
--- NOTE | 2017-09-05 13:43 | PCM.HF ---
Heart Failure Core Measure - Heart Failure Ejection Fraction: Less Than 40 % ROSA Inhibitor Prescribed: Yes Beta-Kevin Prescribed: Metoprolol Succinate Angiotensin II Receptor Kevin Prescribed: No Contraindication/Reason for not providing: ON ROSA AnticoagulationTherapy for Atrial Fibrillation/Atrialflutter: No Contraindication/Reason for not providing: NO H/O AFIB Aldosterone Antagonist Prescribed: No Contraindication/Reason for not providing: AICD Hydralazine Nitrate Prescribed: No Contraindication/Reason for not providing: AICD Implantable Cardioverter Defibrillator Therapy: Yes Cardiac Resynchronization Therapy Prescribed: No Contraindication/Reason for not providing: AICD PLACED - Follow up Will be discharged to: Home Follow Up Date (must be within 7 days from discharge): 09/10/17 Follow Up Time: 09:00
--- NOTE | 2017-09-05 14:21 | CP.PCM.PN ---
Subjective - Date & Time of Evaluation Date of Evaluation: 09/05/17 Time of Evaluation: 11:00 - Subjective Subjective: Patient seen and examined. Complaining of slight cough but overall feeling much better Denies fevers chills Objective - Vital Signs/Intake and Output Vital Signs (last 24 hours): Temp Pulse Resp BP Pulse Ox 98.1 F 119 H 20 114/51 L 94 L 09/05/17 08:52 09/05/17 10:30 09/05/17 08:52 09/05/17 10:31 09/05/17 08:52 Intake and Output: 09/05/17 09/05/17 06:59 18:59 Intake Total 240 Balance 240 - Medications Medications: Current Medications Albuterol/Ipratropium (Duoneb 3 Mg/0.5 Mg (3 Ml) Ud) 3 ml INH RQ4 [facility] Last Admin: 09/05/17 11:18 Dose: 3 ml Enalapril Maleate (Vasotec) 5 mg PO BID [facility] Last Admin: 09/05/17 10:31 Dose: 5 mg Famotidine (Pepcid) 20 mg PO BID [facility] Last Admin: 09/05/17 10:31 Dose: 20 mg Furosemide (Lasix) 40 mg IVP DAILY [facility] Last Admin: 09/05/17 10:31 Dose: 40 mg Heparin Sodium (Porcine) (Heparin) 5,000 units SC Q8 [facility] Last Admin: 09/05/17 06:20 Dose: 5,000 units Moxifloxacin HCl (Avelox Iv 400mg/250ml Ns) 400 mg in 250 mls @ 167 mls/hr IVPB Q24H [facility] Last Admin: 09/04/17 18:44 Dose: 167 mls/hr Methylprednisolone (Solu-Medrol) 40 mg IVP Q6H [facility] Last Admin: 09/05/17 12:04 Dose: 40 mg Metoprolol Succinate (Toprol Xl) 50 mg PO DAILY [facility] Last Admin: 09/05/17 10:30 Dose: 50 mg Spironolactone (Aldactone) 25 mg PO BID [facility] Last Admin: 09/05/17 10:31 Dose: 25 mg - Labs Labs: 09/05/17 07:26 09/05/17 07:26 - Head Exam Head Exam: ATRAUMATIC, NORMOCEPHALIC - Eye Exam Eye Exam: Normal appearance - ENT Exam ENT Exam: Mucous Membranes Moist - Neck Exam Neck Exam: Normal Inspection - Respiratory Exam Respiratory Exam: Clear to Ausculation Bilateral - Cardiovascular Exam Cardiovascular Exam: REGULAR RHYTHM - GI/Abdominal Exam GI & Abdominal Exam: Soft, Normal Bowel Sounds Assessment and Plan (1) Bronchitis Assessment & Plan: Switch to by mouth antibiotics Continue nebulizer treatment Switch to by mouth prednisone Pulmonary function test as outpatient Consider sleep study as outpatient Status: Resolved (2) Asthma with exacerbation Status: Acute
[2017-09-05 14:40] VITALS: BP 107/70; PULSE 105; RESP 18; TEMP 97.7; O2SAT 96
[2017-09-06] MEDS ORDERED: Metoprolol Succinate 25 mg XL Tab PO SCH (18:15)
--- NOTE | 2017-09-06 22:28 | CARD ---
APPROVED REPORT EKG Measurement Heart [id number] AR [id number] <Conclusion> Normal sinus rhythm Possible Left atrial enlargement Inferior infarct, age undetermined T wave abnormality, consider lateral ischemia Abnormal ECG
== END 2017-09-05 14:55 | disposition home or self-care (01) | DRG 871 ==
LOC: C.ER 12:47 → C.9E 18:29 → C.6T 19:51
PROVIDERS: ADMIT Internal Medicine; ATTEND Internal Medicine
DX: A41.9 Sepsis, unspecified organism (principal); I50.23 Acute on chronic systolic (congestive) heart failure; I42.0 Dilated cardiomyopathy; I27.20 Pulmonary hypertension, unspecified; J45.901 Unspecified asthma with (acute) exacerbation; I11.0 Hypertensive heart disease with heart failure; R73.02 Impaired glucose tolerance (oral); E66.9 Obesity, unspecified; G47.33 Obstructive sleep apnea (adult) (pediatric); J40 Bronchitis, not specified as acute or chronic; Z83.3 Family history of diabetes mellitus; Z82.49 Family history of ischemic heart disease and other diseases of the circulatory system; Z95.810 Presence of automatic (implantable) cardiac defibrillator

== ENCOUNTER 2018-02-11 14:47 | Inpatient (IN) | payer BC ==
[2018-02-11 16:50] LABS: BASO # 0.1 K/uL (0.0-0.2); BASO % 0.6 % (0.0-2.0); EOS # 0.2 K/uL (0.0-0.7); HEMOGLOBIN 13.1 g/dL (12.0-18.0); LYMPH # 1.3 K/uL (1.0-4.3); LYMPH % 12.4 % (20.0-40.0); MEAN CELL VOLUME 90.7 fL (80.0-94.0); MEAN CORPUSCULAR HEMOGLOBIN 30.6 pg (27.0-31.0); MEAN CORPUSCULAR HGB CONC 33.7 g/dL (33.0-37.0); MONO # 0.6 K/uL (0.0-0.8); MONO % 5.6 % (0.0-10.0); NEUT # 8.5 K/uL (1.8-7.0); NEUT % 79.4 % (50.0-75.0); NRBC % 0.1 % (0.0-2.0); RBC 4.28 Mil/uL (4.40-5.90); RED CELL DISTRIBUTION WIDTH 14.1 % (11.5-14.5); WHITE BLOOD COUNT 10.7 K/uL (4.8-10.8)
--- NOTE | 2018-02-11 16:58 | RAD ---
HISTORY: upper abdominal discomfort, h/o CHF COMPARISON: 09/03/2017. FINDINGS: LUNGS: The lungs are well inflated and clear. PLEURA: No significant pleural effusion identified, no pneumothorax apparent. CARDIOVASCULAR: This persistent severe cardiomegaly. OSSEOUS STRUCTURES: No significant abnormalities. VISUALIZED UPPER ABDOMEN: Normal. OTHER FINDINGS: None. IMPRESSION: No acute findings. Severe cardiomegaly.
[2018-02-11 17:02] LABS: ALBUMIN 3.9 g/dL (3.5-5.0); ALT/SGPT 48 U/L (21-72); AST/SGOT 36 U/L (17-59); BLOOD UREA NITROGEN 19 mg/dL (9-20); CALCIUM 9.5 mg/dl (8.6-10.4); GFR AFRICAN-AMERICAN > 60; GFR NON-AFRICAN AMERICAN > 60; LIPASE 118 U/L (23-300)
[2018-02-11 17:39] LABS: B-TYPE NATRIURETIC PEPTIDE 2040 pg/mL (0-450)
--- NOTE | 2018-02-11 19:31 | C.PDOC ---
History Of Present Illness Pt c/o worsening dyspnea on exertion and a tightness feeling in epigastric area that appears on exertions as well. Time Seen by Provider: 02/11/18 16:14 Chief Complaint (Nursing): Shortness Of Breath History Per: Patient Onset/Duration Of Symptoms: Days (few) Current Symptoms Are (Timing): Worse Quality: Tightness Exacerbating Factor(s): Exertion Current Respiratory Medications: See Home Med List Severity: Moderate Associated Symptoms: Chest Pain (epigastric area) Additional History Per: Prior Records Past Medical History Reviewed: Historical Data, Nursing Documentation, Vital Signs Vital Signs: Last Vital Signs Temp 98.4 F 02/11/18 15:15 Pulse 107 H 02/11/18 19:13 Resp 22 02/11/18 19:13 BP 94/64 L 02/11/18 19:13 Pulse Ox 97 02/11/18 19:13 - Medical History PMH: Bronchitis, CHF, HTN Surgical History: Appendectomy, Pacemaker (AICD) - [email or web address] Procedures CORONAR ARTERIOGR-2 CATH (10/06/13) RT & LT HEART ANGIOCARD (10/06/13) RT/LEFT HEART CARD CATH (10/06/13) Family History: States: Unknown Family Hx, IA, CAD, Hypertension (CHF) - Social History Hx Tobacco Use: No Hx Alcohol Use: No Hx Substance Use: No - Immunization History Hx Tetanus Toxoid Vaccination: No Hx Influenza Vaccination: No Hx Pneumococcal Vaccination: No Review Of Systems Except As Marked, All Systems Reviewed And Found Negative. Constitutional: Negative for: Fever Cardiovascular: Positive for: Edema Respiratory: Positive for: SOB with Excertion. Negative for: Hemoptysis Gastrointestinal: Positive for: Abdominal Pain (epigastric area, on exertion). Negative for: Vomiting Musculoskeletal: Negative for: Neck Pain, Back Pain Neurological: Negative for: Weakness, Numbness Physical Exam - Physical Exam Appears: No Acute Distress, Chronically Ill Skin: Warm, Dry Head: Atraumatic, Normacephalic Eye(s): bilateral: Normal Inspection, PERRL, EOMI Neck: Normal ROM, Supple Cardiovascular: Rhythm Regular Respiratory: No Accessory Muscle Use, Rales (at bases) Gastrointestinal/Abdominal: Soft, No Tenderness Back: No CVA Tenderness Extremity: Normal ROM, Pedal Edema, No Calf Tenderness Neurological/Psych: Oriented x3, Normal Motor, Normal Sensation ED Course And Treatment - Laboratory Results Result Diagrams: 02/11/18 16:44 02/11/18 16:44 Lab Interpretation: Abnormal Interpretation Of Abnormal: Elevated BNP ECG: Interpreted By Me, Viewed By Me ECG Rhythm: Sinus Tachycardia, Nonspecific Changes Rate From EC O2 Sat by Pulse Oximetry: 97 Pulse Ox Interpretation: Normal - Radiology CXR: Viewed By Me, Read By Radiologist CXR Interpretation: Yes: Cardiomegaly Progress Note: No improvement after GI meds. Pt only able to walk few feet before SOB and "tightness" feeling in epigastric area. Reassessment Condition: Unchanged Progress - Interventions Interventions:: Observation, Oxygen - Medications Administered Oral: Antiemetic, Aspirin (pt took at home today), H-2 geneva Intravenous: Diuretic - Data Reviewed Data Reviewed: Lab, Diagnostic imaging, EKG, Old records - Patient Status Patient status: Unchanged - Continuity of Care Discussed patient case with:: Patient, Family-HIPPA compliant, ED Nurse, Covering for PMD - Patient Plan Patient Plan: Admission, Telemetry Disposition Discussed With : Leonard Tobin Comment: He accepted pt on hospitalist service. Doctor Will See Patient In The: Hospital Counseled Patient/Family Regarding: Studies Performed, Diagnosis - Disposition Disposition: HOSPITALIZED Disposition Time: 19:34 Condition: GUARDED - Clinical Impression Clinical Impression: CHF exacerbation
--- NOTE | 2018-02-11 20:07 | CP.PCM.HP ---
<Elvin Miranda - Last Filed: 02/11/18 20:31> History of Present Illness - History of Present Illness History of Present Illness: CC: SOB and abdominal distention PMD: Dr. Moreira Cardio: Dr Quinteros currently attempting to get heart transplant at [facility] Full code This patient is a 37yo M w/ a PMhx of systolic and diastolic CHF with AICD 2/2 to sudden cardiac prophylaxis who is coming in for a 1wk history of shortness of breath and abdominal distention. The patient states that when he is walking around, he gets extremely short of breath, fatigued, and nauseous and feels like his abdomen gets more distended as he walks around more. This has happened to him in the past, and states he had a paracentesis which relieved the abdominal distention. He denies abdominal pain or fevers. Denies fevers/chills, ACUÑA, CP, abdominal pain, V/D, dysuria/freq/urg or lower extremity pain. He states that his boiling tub operator tried to place him on entresto, but 2/2 to insurance issues cannot afford the medication; he has been on the current medications below for the past month. He does not know why his heart is failing specifically. PMhx: CHF, IGT, normally has low BP in the 90s/50's Allergies: denies Famhx: DM, HTN, denies history of sudden cardiac in family Surgeries: Appendectomy in teens, tendon biceps repair, AICD placement 7 years ago Meds: Enalapril maleate 5mg, Metoprolol Suc 50mg, Aldactone 25mg PO, Lasix PO 20mg daily, Aspirin 81mg Social: former social smoker in teens, denies EtOH or previous/current illicit drug use Present on Admission - Present on Admission Any Indicators Present on Admission: Yes History of DVT/PE: No History of Uncontrolled Diabetes: No Urinary Catheter: No Decubitus Ulcer Present: No Past Patient History - Infectious Disease Hx of Infectious Diseases: None - Tetanus Immunizations Tetanus Immunization: Unknown - Past Medical History & Family History Past Medical History?: Yes - Past Social History Smoking Status: Never Smoked - CARDIAC Hx Congestive Heart Failure: Yes Hx Hypertension: Yes Hx Pacemaker: Yes (AICD) - PULMONARY Hx Bronchitis: Yes - NEUROLOGICAL Hx Neurological Disorder: No - HEENT Hx HEENT Problems: No - RENAL Hx Chronic Kidney Disease: No - ENDOCRINE/METABOLIC Hx Endocrine Disorders: No - HEMATOLOGICAL/ONCOLOGICAL Hx Blood Disorders: No - INTEGUMENTARY Hx Dermatological Problems: No - MUSCULOSKELETAL/RHEUMATOLOGICAL Hx Musculoskeletal Disorders: No Hx Falls: No - GASTROINTESTINAL Other/Comment: hx appendicitis - GENITOURINARY/GYNECOLOGICAL Hx Genitourinary Disorders: No - PSYCHIATRIC Hx Substance Use: No - SURGICAL HISTORY Hx Appendectomy: Yes - ANESTHESIA Hx Anesthesia: Yes Hx Anesthesia Reactions: No Meds Allergies/Adverse Reactions: Allergies Allergy/AdvReac Type Severity Reaction Status Date / Time No Known Allergies Allergy Verified 09/20/16 18:36 Physical Exam - Constitutional Appears: Non-toxic, No Acute Distress - Head Exam Head Exam: ATRAUMATIC - Eye Exam Eye Exam: EOMI, PERRL. absent: Scleral icterus Pupil Exam: PERRL - ENT Exam ENT Exam: Mucous Membranes Moist - Neck Exam Neck exam: Positive for: Full Rom. Negative for: Lymphadenopathy, Thyromegaly Additional comments: JVD present - Respiratory Exam Respiratory Exam: Clear to Auscultation Bilateral, NORMAL BREATHING PATTERN. absent: Rales, Rhonchi, Wheezes - Cardiovascular Exam Cardiovascular Exam: REGULAR RHYTHM, +S1, +S2 - GI/Abdominal Exam GI & Abdominal Exam: Distended (fluid wave present ), Normal Bowel Sounds, Soft. absent: Hernia, Hyperactive Bowel Sounds, Mass, Rebound, Rigid, Tenderness - Extremities Exam Extremities exam: Positive for: full ROM, pedal edema (+1 up to middle of calf ) . Negative for: calf tenderness - Back Exam Back exam: NORMAL INSPECTION. absent: CVA tenderness (L), CVA tenderness (R) - Neurological Exam Neurological exam: Alert, CN II-XII Intact, Oriented x3 - Psychiatric Exam Psychiatric exam: Normal Affect - Skin Skin Exam: Warm Results - Vital Signs Recent Vital Signs: Last Vital Signs Temp 98.4 F 02/11/18 15:15 Pulse 107 H 02/11/18 19:13 Resp 22 02/11/18 19:13 BP 94/65 L 02/11/18 19:30 Pulse Ox 97 02/11/18 19:35 - Labs Result Diagrams: 02/11/18 16:44 02/11/18 16:44 Labs: Laboratory Results - last 24 hr 02/11/18 02/11/18 16:44 16:44 WBC 10.7 D RBC 4.28 L Hgb 13.1 Hct 38.9 MCV 90.7 D MCH 30.6 MCHC 33.7 RDW 14.1 Plt Count 295 MPV 8.0 Neut % (Auto) 79.4 H Lymph % (Auto) 12.4 L [place] % (Auto) 5.6 Eos % (Auto) 2.0 Baso % (Auto) 0.6 Neut # (Auto) 8.5 H Lymph # (Auto) 1.3 [place] # (Auto) 0.6 Eos # (Auto) 0.2 Baso # (Auto) 0.1 Sodium 140 Potassium 4.8 Chloride 102 Carbon Dioxide 26 Anion Gap 17 BUN 19 Creatinine 1.0 Est GFR ( Amer) > 60 Est GFR (Non-Af Amer) > 60 Random Glucose 129 H Calcium 9.5 Total Bilirubin 1.0 AST 36 ALT 48 Alkaline Phosphatase 84 Troponin I 0.0370 NT-Pro-B Natriuret Pep 2040 H Total Protein 7.9 Albumin 3.9 Globulin 4.0 H Albumin/Globulin Ratio 1.0 Lipase 118 Assessment & Plan - Assessment and Plan (Free Text) Assessment: 37yo M admitted for acute on chronic CHF exacerbation with systolic and diastolic CHF Acute on Chronic CHF Exacerbation with systolic and diastolic failure -BNP elevated -Telemetry -marked cardiomegaly on x-ray; however no crackles on exam; mostly abdominal distention/fluid wave -will likely need paracentesis; f/u abdominal US -f/u repeat echo; please refer to MAR for complete report for echo from 09/07 -c/w enalapril 5mg, Metoprolol 50mg, Aldactone 25mg PO, Aspirin 81mg PO -patient was previously on Entresto however cannot afford 2/2 to insurance issues -BP is normally 90/50's which is his baseline -add crestor 20mg; patient high risk for ACS and should be discharged on high dose statin -f/u MARYCHUY; mildly elevated which is likely 2/2 to demand ischemia from marked systolic failure --f/u Lipid Panel, HbA1C Abdominal Distention -if patient has marked ascites on abdominal US recommend paracentesis/IR consult -patient does not have signs of SBP; no abdominal pain/fevers however if develops should prophylactically treat -f/u hep panel; AST/ALT normal; patient denies IV drug use -f/u echo Elevated Globulin -f/u SPEP, Serum and urine immunofixation -f/u RPR, HIV, Hepatitis Panel -currently denying any B symptoms Elevated Glucose/IGT -f/u HbA1C; previous was 6.2 -low salt/heart healthy diet -recommend lower dose metformin on discharge given risk factors Prophylaxis GI prophylaxis not indicated lovenox 40mg SC daily PT eval and treat Case discussed with Dr. Crista Miranda PGY2 Decision To Admit - Pt Status Changed To: Hospital Disposition Of: Inpatient - Admit Certification Admit to Inpatient:: After my assessment, the patient will require hospitalization for at least two midnights. This is because of the severity of symptoms shown, intensity of services needed, and/or the medical risk in this patient being treated as an outpatient. - InPatient: Physician Admission Certification:: acute on chronic CHF - . Bed Request Type: Telemetry Admitting Physician: Leonard Tobin <Leonard Tobin - Last Filed: 02/12/18 06:04> Results - Vital Signs Recent Vital Signs: Last Vital Signs Temp 97.6 F 02/12/18 04:00 Pulse 96 H 02/12/18 04:00 Resp 20 02/12/18 04:00 BP 134/84 02/12/18 04:00 Pulse Ox 95 02/12/18 04:00 - Labs Result Diagrams: 02/11/18 16:44 02/11/18 16:44 Labs: Laboratory Results - last 24 hr 02/11/18 02/11/18 02/11/18 16:44 16:44 21:43 WBC 10.7 D RBC 4.28 L Hgb 13.1 Hct 38.9 MCV 90.7 D MCH 30.6 MCHC 33.7 RDW 14.1 Plt Count 295 MPV 8.0 Neut % (Auto) 79.4 H Lymph % (Auto) 12.4 L [place] % (Auto) 5.6 Eos % (Auto) 2.0 Baso % (Auto) 0.6 Neut # (Auto) 8.5 H Lymph # (Auto) 1.3 [place] # (Auto) 0.6 Eos # (Auto) 0.2 Baso # (Auto) 0.1 Sodium 140 Potassium 4.8 Chloride 102 Carbon Dioxide 26 Anion Gap 17 BUN 19 Creatinine 1.0 Est GFR ( Amer) > 60 Est GFR (Non-Af Amer) > 60 Random Glucose 129 H Calcium 9.5 Total Bilirubin 1.0 AST 36 ALT 48 Alkaline Phosphatase 84 Total Creatine Kinase CK-MB (Mass) Troponin I 0.0370 NT-Pro-B Natriuret Pep 2040 H Total Protein 7.9 Albumin 3.9 Globulin 4.0 H Albumin/Globulin Ratio 1.0 Lipase 118 Urine Opiates Screen Negative Urine Methadone Screen Negative Ur Barbiturates Screen Negative Ur Phencyclidine Scrn Negative Ur Amphetamines Screen Negative U Benzodiazepines Scrn Negative U Oth Cocaine Metabols Negative U Cannabinoids Screen Negative 02/12/18 01:00 WBC RBC Hgb Hct MCV MCH MCHC RDW Plt Count MPV Neut % (Auto) Lymph % (Auto) [place] % (Auto) Eos % (Auto) Baso % (Auto) Neut # (Auto) Lymph # (Auto) [place] # (Auto) Eos # (Auto) Baso # (Auto) Sodium Potassium Chloride Carbon Dioxide Anion Gap BUN Creatinine Est GFR ( Amer) Est GFR (Non-Af Amer) Random Glucose Calcium Total Bilirubin AST ALT Alkaline Phosphatase Total Creatine Kinase 128 CK-MB (Mass) 0.84 Troponin I 0.0460 NT-Pro-B Natriuret Pep Total Protein Albumin Globulin Albumin/Globulin Ratio Lipase Urine Opiates Screen Urine Methadone Screen Ur Barbiturates Screen Ur Phencyclidine Scrn Ur Amphetamines Screen U Benzodiazepines Scrn U Oth Cocaine Metabols U Cannabinoids Screen Assessment & Plan - Date & Time Date: 02/12/18 (I have seen and examined the patient. I agree with the findings and plan of care as documented by Dr. Miranda. Patient with CHF exacerbation. Consult to Cardio. ROMIx3 with EKG. Lasix IV. 2D Echo. Aspirin and Statin. Also with abdominal distention. Ultrasound showing ascites. Consult to IR. Monitor for acute changes.) Time: 06:03 Attending/Attestation - Attestation I have personally seen and examined this patient.: Yes I have fully participated in the care of the patient.: Yes I have reviewed all pertinent clinical information: Yes
[2018-02-11 22:05] LABS: BARBITURATES, UR NEGATIVE (NEGATIVE); BENZODIAZEPINES, UR NEGATIVE (NEGATIVE); OPIATES, UR NEGATIVE (NEGATIVE); PHENCYCLIDINE, UR NEGATIVE (NEGATIVE)
--- NOTE | 2018-02-12 00:27 | US ---
EXAM: US Abdomen Complete CLINICAL HISTORY: 37 years old, male; Signs and symptoms; Other: Abdominal distention TECHNIQUE: Real-time ultrasound of the abdomen (complete) with image documentation. COMPARISON: No relevant prior studies available. FINDINGS: Liver: Fatty infiltration. No mass. No intrahepatic ductal dilatation. Gallbladder: No gallstones. No wall thickening. No pericholecystic fluid. No sonographic To's sign. Common bile duct: No dilatation. No stones. Pancreas: Unremarkable as visualized. Kidneys: Normal echogenicity. No hydronephrosis. Spleen: No splenomegaly. Aorta: Unremarkable as visualized. Inferior vena cava: Unremarkable. Free fluid: No significant free fluid. IMPRESSION: 1.No acute findings. 2.Non-acute findings are described above.
[2018-02-12 01:27] LABS: CK-MB 0.84 ng/mL (0.0-3.38); TROPONIN I 0.046 ng/mL (0.00-0.120)
[2018-02-12 07:07] LABS: BASO # 0.1 K/uL (0.0-0.2); BASO % 0.9 % (0.0-2.0); EOS # 0.3 K/uL (0.0-0.7); EOS % 2.7 % (0.0-4.0); HEMOGLOBIN 13.5 g/dL (12.0-18.0); LYMPH # 2.2 K/uL (1.0-4.3); MEAN CELL VOLUME 89.8 fL (80.0-94.0); MEAN CORPUSCULAR HGB CONC 34.5 g/dL (33.0-37.0); MEAN PLATELET VOLUME 8.3 fL (7.2-11.7); MONO # 0.8 K/uL (0.0-0.8); MONO % 6.9 % (0.0-10.0); NEUT # 7.6 K/uL (1.8-7.0); NEUT % 69.5 % (50.0-75.0); NRBC % 0.1 % (0.0-2.0); RBC 4.36 Mil/uL (4.40-5.90); RED CELL DISTRIBUTION WIDTH 14.1 % (11.5-14.5)
[2018-02-12 07:31] LABS: ALT/SGPT 44 U/L (21-72); AST/SGOT 27 U/L (17-59); BLOOD UREA NITROGEN 19 mg/dL (9-20); CALCIUM 9.2 mg/dl (8.6-10.4); GFR AFRICAN-AMERICAN > 60; GFR NON-AFRICAN AMERICAN > 60; HDL CHOLESTEROL 26 mg/dL (30-70)
[2018-02-12 07:38] LABS: CK-MB 0.97 ng/mL (0.0-3.38); LDL CHOLESTEROL 122 mg/dL (0-129); TROPONIN I 0.06 ng/mL (0.00-0.120)
[2018-02-12 07:42] VITALS: RESP 18
[2018-02-12 08:00] LABS: HEPATITIS B SURFACE AG Negative (NEGATIVE)
[2018-02-12 08:06] LABS: HEPATITIS A IGM NEGATIVE (NEGATIVE); HEPATITIS B CORE AB NEGATIVE (NEGATIVE)
[2018-02-12 08:17] LABS: HEPATITIS C ANTIBODY NEGATIVE (NEGATIVE)
[2018-02-12] MEDS ORDERED: Metoprolol Succinate 50 mg XL Tab PO SCH (10:00)
[2018-02-12] MEDS ORDERED: Enoxaparin 40 mg Syringe SC SCH (10:00)
--- NOTE | 2018-02-12 10:19 | CP.PCM.CON ---
History of Present Illness - History of Present Illness History of Present Illness: patient seen/examined. acute on chronic systolic dysfunction. known cardiomyopathy. has not followed up for appt at [facility] for transplant. stable for discharge Past Patient History - Infectious Disease Hx of Infectious Diseases: None - Tetanus Immunizations Tetanus Immunization: Unknown - Past Medical History & Family History Past Medical History?: Yes - Past Social History Smoking Status: Former Smoker - CARDIAC Hx Congestive Heart Failure: Yes Hx Hypertension: Yes Hx Pacemaker: Yes (AICD 2014) - PULMONARY Hx Bronchitis: Yes - NEUROLOGICAL Hx Neurological Disorder: No - HEENT Hx HEENT Problems: No - RENAL Hx Chronic Kidney Disease: No - ENDOCRINE/METABOLIC Hx Endocrine Disorders: No - HEMATOLOGICAL/ONCOLOGICAL Hx Blood Disorders: No - INTEGUMENTARY Hx Dermatological Problems: No - MUSCULOSKELETAL/RHEUMATOLOGICAL Hx Falls: No - GASTROINTESTINAL Other/Comment: hx appendicitis - GENITOURINARY/GYNECOLOGICAL Hx Genitourinary Disorders: No - PSYCHIATRIC Hx Substance Use: No - SURGICAL HISTORY Hx Appendectomy: Yes - ANESTHESIA Hx Anesthesia: Yes Hx Anesthesia Reactions: No Meds Allergies/Adverse Reactions: Allergies Allergy/AdvReac Type Severity Reaction Status Date / Time No Known Allergies Allergy Verified 09/20/16 18:36 - Medications Medications: Current Medications Acetaminophen (Tylenol 325mg Tab) 650 mg PO Q6 PRN PRN Reason: Fever >100.4 F Aspirin (Aspirin Chewable) 81 mg PO DAILY [facility] Last Admin: 02/12/18 09:36 Dose: 81 mg Enalapril Maleate (Vasotec) 5 mg PO BID [facility] Last Admin: 02/12/18 09:35 Dose: 5 mg Enoxaparin Sodium (Lovenox) 40 mg SC DAILY [facility] Last Admin: 02/12/18 09:37 Dose: 40 mg Furosemide (Lasix) 20 mg PO DAILY [facility] Last Admin: 02/12/18 09:35 Dose: 20 mg Ketorolac Tromethamine (Toradol) 30 mg IV Q6 PRN PRN Reason: Pain, severe (8-10) Metoprolol Succinate (Toprol Xl) 50 mg PO DAILY [facility] Last Admin: 02/12/18 09:36 Dose: 50 mg Ondansetron HCl (Zofran Inj) 4 mg IVP Q6 PRN PRN Reason: Nausea/Vomiting Rosuvastatin Calcium (Crestor) 20 mg PO HS [facility] Last Admin: 02/11/18 22:46 Dose: 20 mg Spironolactone (Aldactone) 25 mg PO BID [facility] Last Admin: 02/12/18 09:35 Dose: 25 mg Results - Vital Signs Recent Vital Signs: Last Vital Signs Temp 98.1 F 02/12/18 07:00 Pulse 99 H 02/12/18 07:00 Resp 18 02/12/18 07:00 BP 99/64 L 02/12/18 09:35 Pulse Ox 98 02/12/18 07:00 - Labs Result Diagrams: 02/12/18 07:00 02/12/18 07:00 Labs: Laboratory Results - last 24 hr 02/11/18 02/11/18 02/11/18 16:44 16:44 21:43 WBC 10.7 D RBC 4.28 L Hgb 13.1 Hct 38.9 MCV 90.7 D MCH 30.6 MCHC 33.7 RDW 14.1 Plt Count 295 MPV 8.0 Neut % (Auto) 79.4 H Lymph % (Auto) 12.4 L Rank[place] % (Auto) 5.6 Eos % (Auto) 2.0 Baso % (Auto) 0.6 Neut # (Auto) 8.5 H Lymph # (Auto) 1.3 Rankin # (Auto) 0.6 Eos # (Auto) 0.2 Baso # (Auto) 0.1 Sodium 140 Potassium 4.8 Chloride 102 Carbon Dioxide 26 Anion Gap 17 BUN 19 Creatinine 1.0 Est GFR ( Amer) > 60 Est GFR (Non-Af Amer) > 60 POC Glucose (mg/dL) Random Glucose 129 H Hemoglobin A1c Calcium 9.5 Total Bilirubin 1.0 AST 36 ALT 48 Alkaline Phosphatase 84 Total Creatine Kinase CK-MB (Mass) Troponin I 0.0370 NT-Pro-B Natriuret Pep 2040 H Total Protein 7.9 Albumin 3.9 Globulin 4.0 H Albumin/Globulin Ratio 1.0 Triglycerides Cholesterol LDL Cholesterol Direct HDL Cholesterol Lipase 118 Free T4 TSH 3rd Generation Urine Opiates Screen Negative Urine Methadone Screen Negative Ur Barbiturates Screen Negative Ur Phencyclidine Scrn Negative Ur Amphetamines Screen Negative U Benzodiazepines Scrn Negative U Oth Cocaine Metabols Negative U Cannabinoids Screen Negative Hepatitis A IgM Ab Hep Bs Antigen Hep B Core IgM Ab Hepatitis C Antibody HIV 1&2 Antibody Screen 02/12/18 02/12/18 02/12/18 01:00 06:15 07:00 WBC RBC Hgb Hct MCV MCH MCHC RDW Plt Count MPV Neut % (Auto) Lymph % (Auto) Rankin % (Auto) Eos % (Auto) Baso % (Auto) Neut # (Auto) Lymph # (Auto) Rankin # (Auto) Eos # (Auto) Baso # (Auto) Sodium Potassium Chloride Carbon Dioxide Anion Gap BUN Creatinine Est GFR ( Amer) Est GFR (Non-Af Amer) POC Glucose (mg/dL) 108 Random Glucose Hemoglobin A1c Calcium Total Bilirubin AST ALT Alkaline Phosphatase Total Creatine Kinase 128 121 CK-MB (Mass) 0.84 0.97 Troponin I 0.0460 0.0600 NT-Pro-B Natriuret Pep Total Protein Albumin Globulin Albumin/Globulin Ratio Triglycerides Cholesterol LDL Cholesterol Direct HDL Cholesterol Lipase Free T4 TSH 3rd Generation Urine Opiates Screen Urine Methadone Screen Ur Barbiturates Screen Ur Phencyclidine Scrn Ur Amphetamines Screen U Benzodiazepines Scrn U Oth Cocaine Metabols U Cannabinoids Screen Hepatitis A IgM Ab Hep Bs Antigen Hep B Core IgM Ab Hepatitis C Antibody HIV 1&2 Antibody Screen 02/12/18 02/12/18 02/12/18 07:00 07:00 07:00 WBC RBC Hgb Hct MCV MCH MCHC RDW Plt Count MPV Neut % (Auto) Lymph % (Auto) Rankin % (Auto) Eos % (Auto) Baso % (Auto) Neut # (Auto) Lymph # (Auto) Rankin # (Auto) Eos # (Auto) Baso # (Auto) Sodium 140 Potassium 4.4 Chloride 99 Carbon Dioxide 27 Anion Gap 19 BUN 19 Creatinine 1.0 Est GFR ( Amer) > 60 Est GFR (Non-Af Amer) > 60 POC Glucose (mg/dL) Random Glucose 106 Hemoglobin A1c 6.3 Calcium 9.2 Total Bilirubin 0.9 AST 27 ALT 44 Alkaline Phosphatase 87 Total Creatine Kinase CK-MB (Mass) Troponin I NT-Pro-B Natriuret Pep Total Protein 7.9 Albumin 4.0 Globulin 3.9 Albumin/Globulin Ratio 1.0 Triglycerides 163 H D Cholesterol 167 LDL Cholesterol Direct 122 HDL Cholesterol 26 L Lipase Free T4 1.27 TSH 3rd Generation 2.21 Urine Opiates Screen Urine Methadone Screen Ur Barbiturates Screen Ur Phencyclidine Scrn Ur Amphetamines Screen U Benzodiazepines Scrn U Oth Cocaine Metabols U Cannabinoids Screen Hepatitis A IgM Ab Hep Bs Antigen Hep B Core IgM Ab Hepatitis C Antibody HIV 1&2 Antibody Screen 02/12/18 02/12/18 02/12/18 07:00 07:00 07:00 WBC 11.0 H RBC 4.36 L Hgb 13.5 Hct 39.1 MCV 89.8 MCH 31.0 MCHC 34.5 RDW 14.1 Plt Count 329 MPV 8.3 Neut % (Auto) 69.5 Lymph % (Auto) 20.0 Rankin % (Auto) 6.9 Eos % (Auto) 2.7 Baso % (Auto) 0.9 Neut # (Auto) 7.6 H Lymph # (Auto) 2.2 Rankin # (Auto) 0.8 Eos # (Auto) 0.3 Baso # (Auto) 0.1 Sodium Potassium Chloride Carbon Dioxide Anion Gap BUN Creatinine Est GFR ( Amer) Est GFR (Non-Af Amer) POC Glucose (mg/dL) Random Glucose Hemoglobin A1c Calcium Total Bilirubin AST ALT Alkaline Phosphatase Total Creatine Kinase CK-MB (Mass) Troponin I NT-Pro-B Natriuret Pep Total Protein Albumin Globulin Albumin/Globulin Ratio Triglycerides Cholesterol LDL Cholesterol Direct HDL Cholesterol Lipase Free T4 TSH 3rd Generation Urine Opiates Screen Urine Methadone Screen Ur Barbiturates Screen Ur Phencyclidine Scrn Ur Amphetamines Screen U Benzodiazepines Scrn U Oth Cocaine Metabols U Cannabinoids Screen Hepatitis A IgM Ab Negative Hep Bs Antigen Negative Hep B Core IgM Ab Negative Hepatitis C Antibody Negative HIV 1&2 Antibody Screen Negative
--- NOTE | 2018-02-12 10:19 | CP.PCM.CON ---
Past Patient History - Infectious Disease Hx of Infectious Diseases: None - Tetanus Immunizations Tetanus Immunization: Unknown - Past Medical History & Family History Past Medical History?: Yes - Past Social History Smoking Status: Former Smoker - CARDIAC Hx Congestive Heart Failure: Yes Hx Hypertension: Yes Hx Pacemaker: Yes (AICD 2014) - PULMONARY Hx Bronchitis: Yes - NEUROLOGICAL Hx Neurological Disorder: No - HEENT Hx HEENT Problems: No - RENAL Hx Chronic Kidney Disease: No - ENDOCRINE/METABOLIC Hx Endocrine Disorders: No - HEMATOLOGICAL/ONCOLOGICAL Hx Blood Disorders: No - INTEGUMENTARY Hx Dermatological Problems: No - MUSCULOSKELETAL/RHEUMATOLOGICAL Hx Falls: No - GASTROINTESTINAL Other/Comment: hx appendicitis - GENITOURINARY/GYNECOLOGICAL Hx Genitourinary Disorders: No - PSYCHIATRIC Hx Substance Use: No - SURGICAL HISTORY Hx Appendectomy: Yes - ANESTHESIA Hx Anesthesia: Yes Hx Anesthesia Reactions: No Meds Allergies/Adverse Reactions: Allergies Allergy/AdvReac Type Severity Reaction Status Date / Time No Known Allergies Allergy Verified 09/20/16 18:36 - Medications Medications: Current Medications Acetaminophen (Tylenol 325mg Tab) 650 mg PO Q6 PRN PRN Reason: Fever >100.4 F Aspirin (Aspirin Chewable) 81 mg PO DAILY [facility] Last Admin: 02/12/18 09:36 Dose: 81 mg Enalapril Maleate (Vasotec) 5 mg PO BID [facility] Last Admin: 02/12/18 09:35 Dose: 5 mg Enoxaparin Sodium (Lovenox) 40 mg SC DAILY [facility] Last Admin: 02/12/18 09:37 Dose: 40 mg Furosemide (Lasix) 20 mg PO DAILY [facility] Last Admin: 02/12/18 09:35 Dose: 20 mg Ketorolac Tromethamine (Toradol) 30 mg IV Q6 PRN PRN Reason: Pain, severe (8-10) Metoprolol Succinate (Toprol Xl) 50 mg PO DAILY [facility] Last Admin: 02/12/18 09:36 Dose: 50 mg Ondansetron HCl (Zofran Inj) 4 mg IVP Q6 PRN PRN Reason: Nausea/Vomiting Rosuvastatin Calcium (Crestor) 20 mg PO HS [facility] Last Admin: 02/11/18 22:46 Dose: 20 mg Spironolactone (Aldactone) 25 mg PO BID [facility] Last Admin: 02/12/18 09:35 Dose: 25 mg Results - Vital Signs Recent Vital Signs: Last Vital Signs Temp 98.1 F 02/12/18 07:00 Pulse 99 H 02/12/18 07:00 Resp 18 02/12/18 07:00 BP 99/64 L 02/12/18 09:35 Pulse Ox 98 02/12/18 07:00 - Labs Result Diagrams: 02/12/18 07:00 02/12/18 07:00 Labs: Laboratory Results - last 24 hr 02/11/18 02/11/18 02/11/18 16:44 16:44 21:43 WBC 10.7 D RBC 4.28 L Hgb 13.1 Hct 38.9 MCV 90.7 D MCH 30.6 MCHC 33.7 RDW 14.1 Plt Count 295 MPV 8.0 Neut % (Auto) 79.4 H Lymph % (Auto) 12.4 L [place] % (Auto) 5.6 Eos % (Auto) 2.0 Baso % (Auto) 0.6 Neut # (Auto) 8.5 H Lymph # (Auto) 1.3 [place] # (Auto) 0.6 Eos # (Auto) 0.2 Baso # (Auto) 0.1 Sodium 140 Potassium 4.8 Chloride 102 Carbon Dioxide 26 Anion Gap 17 BUN 19 Creatinine 1.0 Est GFR ( Amer) > 60 Est GFR (Non-Af Amer) > 60 POC Glucose (mg/dL) Random Glucose 129 H Hemoglobin A1c Calcium 9.5 Total Bilirubin 1.0 AST 36 ALT 48 Alkaline Phosphatase 84 Total Creatine Kinase CK-MB (Mass) Troponin I 0.0370 NT-Pro-B Natriuret Pep 2040 H Total Protein 7.9 Albumin 3.9 Globulin 4.0 H Albumin/Globulin Ratio 1.0 Triglycerides Cholesterol LDL Cholesterol Direct HDL Cholesterol Lipase 118 Free T4 TSH 3rd Generation Urine Opiates Screen Negative Urine Methadone Screen Negative Ur Barbiturates Screen Negative Ur Phencyclidine Scrn Negative Ur Amphetamines Screen Negative U Benzodiazepines Scrn Negative U Oth Cocaine Metabols Negative U Cannabinoids Screen Negative Hepatitis A IgM Ab Hep Bs Antigen Hep B Core IgM Ab Hepatitis C Antibody HIV 1&2 Antibody Screen 02/12/18 02/12/18 02/12/18 01:00 06:15 07:00 WBC RBC Hgb Hct MCV MCH MCHC RDW Plt Count MPV Neut % (Auto) Lymph % (Auto) [place] % (Auto) Eos % (Auto) Baso % (Auto) Neut # (Auto) Lymph # (Auto) [place] # (Auto) Eos # (Auto) Baso # (Auto) Sodium Potassium Chloride Carbon Dioxide Anion Gap BUN Creatinine Est GFR ( Amer) Est GFR (Non-Af Amer) POC Glucose (mg/dL) 108 Random Glucose Hemoglobin A1c Calcium Total Bilirubin AST ALT Alkaline Phosphatase Total Creatine Kinase 128 121 CK-MB (Mass) 0.84 0.97 Troponin I 0.0460 0.0600 NT-Pro-B Natriuret Pep Total Protein Albumin Globulin Albumin/Globulin Ratio Triglycerides Cholesterol LDL Cholesterol Direct HDL Cholesterol Lipase Free T4 TSH 3rd Generation Urine Opiates Screen Urine Methadone Screen Ur Barbiturates Screen Ur Phencyclidine Scrn Ur Amphetamines Screen U Benzodiazepines Scrn U Oth Cocaine Metabols U Cannabinoids Screen Hepatitis A IgM Ab Hep Bs Antigen Hep B Core IgM Ab Hepatitis C Antibody HIV 1&2 Antibody Screen 02/12/18 02/12/18 02/12/18 07:00 07:00 07:00 WBC RBC Hgb Hct MCV MCH MCHC RDW Plt Count MPV Neut % (Auto) Lymph % (Auto) [place] % (Auto) Eos % (Auto) Baso % (Auto) Neut # (Auto) Lymph # (Auto) [place] # (Auto) Eos # (Auto) Baso # (Auto) Sodium 140 Potassium 4.4 Chloride 99 Carbon Dioxide 27 Anion Gap 19 BUN 19 Creatinine 1.0 Est GFR ( Amer) > 60 Est GFR (Non-Af Amer) > 60 POC Glucose (mg/dL) Random Glucose 106 Hemoglobin A1c 6.3 Calcium 9.2 Total Bilirubin 0.9 AST 27 ALT 44 Alkaline Phosphatase 87 Total Creatine Kinase CK-MB (Mass) Troponin I NT-Pro-B Natriuret Pep Total Protein 7.9 Albumin 4.0 Globulin 3.9 Albumin/Globulin Ratio 1.0 Triglycerides 163 H D Cholesterol 167 LDL Cholesterol Direct 122 HDL Cholesterol 26 L Lipase Free T4 1.27 TSH 3rd Generation 2.21 Urine Opiates Screen Urine Methadone Screen Ur Barbiturates Screen Ur Phencyclidine Scrn Ur Amphetamines Screen U Benzodiazepines Scrn U Oth Cocaine Metabols U Cannabinoids Screen Hepatitis A IgM Ab Hep Bs Antigen Hep B Core IgM Ab Hepatitis C Antibody HIV 1&2 Antibody Screen 02/12/18 02/12/18 02/12/18 07:00 07:00 07:00 WBC 11.0 H RBC 4.36 L Hgb 13.5 Hct 39.1 MCV 89.8 MCH 31.0 MCHC 34.5 RDW 14.1 Plt Count 329 MPV 8.3 Neut % (Auto) 69.5 Lymph % (Auto) 20.0 [place] % (Auto) 6.9 Eos % (Auto) 2.7 Baso % (Auto) 0.9 Neut # (Auto) 7.6 H Lymph # (Auto) 2.2 [place] # (Auto) 0.8 Eos # (Auto) 0.3 Baso # (Auto) 0.1 Sodium Potassium Chloride Carbon Dioxide Anion Gap BUN Creatinine Est GFR ( Amer) Est GFR (Non-Af Amer) POC Glucose (mg/dL) Random Glucose Hemoglobin A1c Calcium Total Bilirubin AST ALT Alkaline Phosphatase Total Creatine Kinase CK-MB (Mass) Troponin I NT-Pro-B Natriuret Pep Total Protein Albumin Globulin Albumin/Globulin Ratio Triglycerides Cholesterol LDL Cholesterol Direct HDL Cholesterol Lipase Free T4 TSH 3rd Generation Urine Opiates Screen Urine Methadone Screen Ur Barbiturates Screen Ur Phencyclidine Scrn Ur Amphetamines Screen U Benzodiazepines Scrn U Oth Cocaine Metabols U Cannabinoids Screen Hepatitis A IgM Ab Negative Hep Bs Antigen Negative Hep B Core IgM Ab Negative Hepatitis C Antibody Negative HIV 1&2 Antibody Screen Negative
[2018-02-12 14:44] VITALS: BP 100/71; PULSE 109; TEMP 97.6; O2SAT 97
--- NOTE | 2018-02-12 14:58 | CP.PCM.DIS ---
Provider - Provider Date of Admission: 02/11/18 19:40 Attending physician: Leonard Tobin MD Time Spent in preparation of Discharge (in minutes): 35 Diagnosis - Discharge Diagnosis (1) Acute on chronic systolic congestive heart failure, NYHA class 2 Status: Acute Priority: High Hospital Course - Lab Results Lab Results: Most Recent Lab Values WBC 11.0 K/uL (4.8-10.8) H 02/12/18 07:00 RBC 4.36 Mil/uL (4.40-5.90) L 02/12/18 07:00 Hgb 13.5 g/dL (12.0-18.0) 02/12/18 07:00 Hct 39.1 % (35.0-51.0) 02/12/18 07:00 MCV 89.8 fL (80.0-94.0) 02/12/18 07:00 MCH 31.0 pg (27.0-31.0) 02/12/18 07:00 MCHC 34.5 g/dL (33.0-37.0) 02/12/18 07:00 RDW 14.1 % (11.5-14.5) 02/12/18 07:00 Plt Count 329 K/uL (130-400) 02/12/18 07:00 MPV 8.3 fL (7.2-11.7) 02/12/18 07:00 Neut % (Auto) 69.5 % (50.0-75.0) 02/12/18 07:00 Lymph % (Auto) 20.0 % (20.0-40.0) 02/12/18 07:00 [place] % (Auto) 6.9 % (0.0-10.0) 02/12/18 07:00 Eos % (Auto) 2.7 % (0.0-4.0) 02/12/18 07:00 Baso % (Auto) 0.9 % (0.0-2.0) 02/12/18 07:00 Neut # (Auto) 7.6 K/uL (1.8-7.0) H 02/12/18 07:00 Lymph # (Auto) 2.2 K/uL (1.0-4.3) 02/12/18 07:00 [place] # (Auto) 0.8 K/uL (0.0-0.8) 02/12/18 07:00 Eos # (Auto) 0.3 K/uL (0.0-0.7) 02/12/18 07:00 Baso # (Auto) 0.1 K/uL (0.0-0.2) 02/12/18 07:00 Sodium 140 mmol/L (132-148) 02/12/18 07:00 Potassium 4.4 mmol/L (3.6-5.2) 02/12/18 07:00 Chloride 99 mmol/L (98-107) 02/12/18 07:00 Carbon Dioxide 27 mmol/L (22-30) 02/12/18 07:00 Anion Gap 19 (10-20) 02/12/18 07:00 BUN 19 mg/dL (9-20) 02/12/18 07:00 Creatinine 1.0 mg/dL (0.8-1.5) 02/12/18 07:00 Est GFR ( Amer) > 60 02/12/18 07:00 Est GFR (Non-Af Amer) > 60 02/12/18 07:00 POC Glucose (mg/dL) 120 mg/dL (65-110) H 02/12/18 11:13 Random Glucose 106 mg/dL (75-110) 02/12/18 07:00 Hemoglobin A1c 6.3 % (4.2-6.5) 02/12/18 07:00 Calcium 9.2 mg/dl (8.6-10.4) 02/12/18 07:00 Total Bilirubin 0.9 mg/dL (0.2-1.3) 02/12/18 07:00 AST 27 U/L (17-59) 02/12/18 07:00 ALT 44 U/L (21-72) 02/12/18 07:00 Alkaline Phosphatase 87 U/L (38-126) 02/12/18 07:00 Total Creatine Kinase 121 U/L (55-170) 02/12/18 07:00 CK-MB (Mass) 0.97 ng/mL (0.0-3.38) 02/12/18 07:00 Troponin I 0.0600 ng/mL (0.00-0.120) 02/12/18 07:00 NT-Pro-B Natriuret Pep 2040 pg/mL (0-450) H 02/11/18 16:44 Total Protein 7.9 g/dL (6.3-8.3) 02/12/18 07:00 Albumin 4.0 g/dL (3.5-5.0) 02/12/18 07:00 Globulin 3.9 gm/dL (2.2-3.9) 02/12/18 07:00 Albumin/Globulin Ratio 1.0 (1.0-2.1) 02/12/18 07:00 Triglycerides 163 mg/dL (0-149) H D 02/12/18 07:00 Cholesterol 167 mg/dL (0-199) 02/12/18 07:00 LDL Cholesterol Direct 122 mg/dL (0-129) 02/12/18 07:00 HDL Cholesterol 26 mg/dL (30-70) L 02/12/18 07:00 Lipase 118 U/L (23-300) 02/11/18 16:44 Free T4 1.27 ng/dL (0.78-2.19) 02/12/18 07:00 TSH 3rd Generation 2.21 mIU/L (0.46-4.68) 02/12/18 07:00 Urine Opiates Screen Negative (NEGATIVE) 02/11/18 21:43 Urine Methadone Screen Negative (NEGATIVE) 02/11/18 21:43 Ur Barbiturates Screen Negative (NEGATIVE) 02/11/18 21:43 Ur Phencyclidine Scrn Negative (NEGATIVE) 02/11/18 21:43 Ur Amphetamines Screen Negative (NEGATIVE) 02/11/18 21:43 U Benzodiazepines Scrn Negative (NEGATIVE) 02/11/18 21:43 U Oth Cocaine Metabols Negative (NEGATIVE) 02/11/18 21:43 U Cannabinoids Screen Negative (NEGATIVE) 02/11/18 21:43 Hepatitis A IgM Ab Negative (NEGATIVE) 02/12/18 07:00 Hep Bs Antigen Negative (NEGATIVE) 02/12/18 07:00 Hep B Core IgM Ab Negative (NEGATIVE) 02/12/18 07:00 Hepatitis C Antibody Negative (NEGATIVE) 02/12/18 07:00 HIV 1&2 Antibody Screen Negative (NEGATIVE) 02/12/18 07:00 - Hospital Course Hospital Course: HPI (As per admission): This patient is a 37yo M w/ a PMhx of systolic and diastolic CHF with AICD 2/2 to sudden cardiac prophylaxis who is coming in for a 1wk history of shortness of breath and abdominal distention. The patient states that when he is walking around, he gets extremely short of breath, fatigued, and nauseous and feels like his abdomen gets more distended as he walks around more. This has happened to him in the past, and states he had a paracentesis which relieved the abdominal distention. He denies abdominal pain or fevers. Denies fevers/chills, ACUÑA, CP, abdominal pain, V/D, dysuria/freq/urg or lower extremity pain. He states that his senior ecologist tried to place him on entresto, but 2/2 to insurance issues cannot afford the medication; he has been on the current medications below for the past month. He does not know why his heart is failing specifically. Hospital Course: This is a 37 year old male with a PMHx of systolic and diastolic CHF, Bronchitis and HTN, AICD placement (2000) who presented to [facility] ED on 02/11/18 for shortness of breath and abdominal distension. In the ED patient CXR showed marked cardiomegaly on x-ray. Abdominal Ultrasound was performed and showed no acute findings. Patient was admitted for observation on telemetry overnight. Patient was started on 20 mg Lasix, 50 mg Metoprolol, Lovenox 40 mg, enalapril 5 mg, aspirin, and started on Crestor 20 mg. Patient's outpatient senior ecologist , Dr. Quinteros was consulted, who cleared patient for discharge with recommendation to follow up at [facility] for possible heart transplant as discussed. Throughout his hospital stay, patient did not have any exacerbation of symptoms and did not require any interventional procedures. Patient was informed to follow up with [facility] for heart transplant after discharge. Patient was discharge home with appropriate instructions and recommendation to resume all home medications. Pertinent Imaging/Labs: CXR showed marked cardiomegaly Abdominal Ultrasound: no acute findings BNP: 2039 This is brief summary of events. For a complete course, please refer to the medical records Discharge Exam - Head Exam Head Exam: ATRAUMATIC - Eye Exam Eye Exam: EOMI, Normal appearance - ENT Exam ENT Exam: Mucous Membranes Moist - Neck Exam Additional comments: Very mild JVD - Respiratory Exam Respiratory Exam: Clear to PA & Lateral, NORMAL BREATHING PATTERN. absent: Prolonged Expiratory Phase, Wheezes, Respiratory Distress, Stridor - Cardiovascular Exam Cardiovascular Exam: REGULAR RHYTHM, +S1, +S2 - GI/Abdominal Exam GI & Abdominal Exam: Normal Bowel Sounds, Soft. absent: Hyperactive Bowel Sounds, Tenderness - Extremities Exam Extremities exam: normal inspection - Neurological Exam Neurological exam: Alert, Normal Gait, Oriented x3 - Psychiatric Exam Psychiatric exam: Normal Affect, Normal Mood Discharge Plan - Follow Up Plan Condition: GUARDED Disposition: HOME/ ROUTINE Instructions: Heart Healthy Diet, Heart Failure, Adult (DC) Additional Instructions: Please discharge patient home Please resume all your home medications as per your primary care physician Dr. Moreira Please follow up with [facility] regarding heart transplant as discussed with your Cardiology, Dr. Quinteros Please follow up with your primary care physician, Dr. Moreira within a week of discharge Please continue to watch your fluid intake and Sodium intake Please return to the hospital if symptoms worsens or resumes Please take care Referrals: Mu Moreira MD [Staff Provider] - Martin Quinteros MD [Staff Provider] -
--- NOTE | 2018-02-12 21:50 | CARD ---
APPROVED REPORT EKG Measurement Heart [id number] <Conclusion> Sinus tachycardia Possible Left atrial enlargement Incomplete left bundle branch block Inferior infarct, age undetermined Abnormal ECG
--- NOTE | 2018-02-13 07:53 | PCM.HF ---
Heart Failure Core Measure - Heart Failure Ejection Fraction: Less Than 40 % Left Ventricular Function to be assessed after discharge: Yes ROSA Inhibitor Prescribed: Yes Beta-Kevin Prescribed: Metoprolol Succinate Angiotensin II Receptor Kevin Prescribed: No Contraindication/Reason for not providing: Patient is already on ROSA-i AnticoagulationTherapy for Atrial Fibrillation/Atrialflutter: No Contraindication/Reason for not providing: Patient does not have A.trial and atrial flutter Aldosterone Antagonist Prescribed: Yes Hydralazine Nitrate Prescribed: No Contraindication/Reason for not providing: Patient is optimize on medications and with AICD Implantable Cardioverter Defibrillator Therapy: Yes Cardiac Resynchronization Therapy Prescribed: No Contraindication/Reason for not providing: Not needed - Follow up Will be discharged to: Home Follow Up Date (must be within 7 days from discharge): 02/22/18 (As per broadcast field supervisor ) Follow Up Time: 09:00
[2018-02-13 15:06] LABS: ALBUMIN (PEP) 3.8 g/dL (3.8-4.8); ALPHA-1-GLOBULIN (PEP) 0.3 g/dL (0.2-0.3)
== END 2018-02-12 15:15 | disposition home or self-care (01) | DRG 292 ==
LOC: C.ER 14:47 → C.9E 19:40 → C.6T 22:36
PROVIDERS: ADMIT Family Medicine; ATTEND Family Medicine
DX: I11.0 Hypertensive heart disease with heart failure (principal); I50.23 Acute on chronic systolic (congestive) heart failure; I24.8 Other forms of acute ischemic heart disease; I42.9 Cardiomyopathy, unspecified; Z95.810 Presence of automatic (implantable) cardiac defibrillator; Z87.891 Personal history of nicotine dependence; Z90.49 Acquired absence of other specified parts of digestive tract; Z91.19 Patient's noncompliance with other medical treatment and regimen; Z79.899 Other long term (current) drug therapy; Z79.82 Long term (current) use of aspirin

== ENCOUNTER 2018-05-03 18:15 | Observation (INO) | payer SELFPAY ==
--- NOTE | 2018-05-03 18:59 | C.PDOC ---
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 PMhx of systolic and diastolic CHF with AICD 2/2 to sudden cardiac prophylaxis, PENDING EVAL FOR CARDIAC TRANSPLANT. PS PRESENT ONLY W EXERTION. NORMALLY ON LASIX 40 MG DAILY, HAS BEEN TAKING 80 MG DAILY BUT NO IMPROVE. NO CP. DENIES AICD DC. EXAM MILD DIST NONTOXIC LUNGS CTA B/L NO W/R/R NO RETRACTION 2+PITTING EDEMA CV RRR REMAINDER NEG Time Seen by Provider: 05/03/18 18:43 Chief Complaint (Nursing): Shortness Of Breath History Per: Patient History/Exam Limitations: no limitations Onset/Duration Of Symptoms: Days Current Symptoms Are (Timing): Still Present Current Respiratory Medications: Diuretic Associated Symptoms: Ankle/Leg Swelling. denies: Fever, Chills Past Medical History Reviewed: Historical Data, Nursing Documentation, Vital Signs Vital Signs: Last Vital Signs Temp 98.3 F 05/03/18 18:24 Pulse 117 H 05/03/18 18:24 Resp 18 05/03/18 19:22 BP Pulse Ox 95 05/03/18 20:05 - Medical History PMH: Bronchitis, CHF, HTN Denies: Chronic Kidney Disease Surgical History: Appendectomy, Pacemaker (AICD 2014) - [facility] Procedures CORONAR ARTERIOGR-2 CATH (10/06/13) RT & LT HEART ANGIOCARD (10/06/13) RT/LEFT HEART CARD CATH (10/06/13) Family History: States: Unknown Family Hx, ME, CAD, Hypertension (CHF) - Social History Hx Tobacco Use: No Hx Alcohol Use: No Hx Substance Use: No - Immunization History Hx Tetanus Toxoid Vaccination: No Hx Influenza Vaccination: No Hx Pneumococcal Vaccination: No Review Of Systems Except As Marked, All Systems Reviewed And Found Negative. Constitutional: Negative for: Fever, Chills Cardiovascular: Negative for: Chest Pain Respiratory: Positive for: Shortness of Breath, SOB with Excertion Musculoskeletal: Positive for: Other (bilateral lower extremity swelling) Physical Exam - Physical Exam Appears: Non-toxic, Other (mild distress) Skin: Normal Color, Warm, Dry Head: Atraumatic, Normacephalic Eye(s): bilateral: Normal Inspection Oral Mucosa: Moist Neck: Normal ROM, Supple Chest: Symmetrical Cardiovascular: Rhythm Regular Respiratory: Normal Breath Sounds, No Rales, No Rhonchi, No Wheezing, No Other ( retractions) Gastrointestinal/Abdominal: Normal Exam, Soft, No Tenderness Back: Normal Inspection, No CVA Tenderness, No Vertebral Tenderness, No Paraspinal Tenderness Extremity: Normal ROM, Pedal Edema (2+ pitting edema), No Deformity Neurological/Psych: Oriented x3 ED Course And Treatment - Laboratory Results Result Diagrams: 05/03/18 19:23 05/03/18 19:23 O2 Sat by Pulse Oximetry: 95 Pulse Ox Interpretation: Normal - Radiology CXR: Interpreted by Me, Viewed By Me CXR Interpretation: Yes: Cardiomegaly, Other (CHF) Progress - Re-Evaluation Re-evaluation Note: 05/03/18 20:27 D/W DR WINKLER C/F PMD AWARE OF ER FINDINGS WILL ADMIT - Data Reviewed Data Reviewed: Lab, Diagnostic imaging, EKG, Old records Disposition Counseled Patient/Family Regarding: Studies Performed, Diagnosis - Disposition Disposition: HOSPITALIZED Disposition Time: 20:29 Condition: STABLE Forms: [employer] (Hungarian) - POA Present On Arrival: None - Clinical Impression Clinical Impression: CHF exacerbation - Scribe Statement The provider has reviewed the documentation as recorded by the Omar Garcia Provider Attestation: All medical record entries made by the Omar were at my direction and personally dictated by me. I have reviewed the chart and agree that the record accurately reflects my personal performance of the history, physical exam, medical decision making, and the department course for this patient. I have also personally directed, reviewed, and agree with the discharge instructions and disposition. Decision To Admit - Pt Status Changed To: Hospital Disposition Of: Observation - . Bed Request Type: Telemetry Admitting Physician: Ronald Winkler Patient Diagnosis: CHF exacerbation
[2018-05-03 19:26] LABS: BASO # 0.1 K/uL (0.0-0.2); BASO % 0.7 % (0.0-2.0); EOS # 0.1 K/uL (0.0-0.7); EOS % 0.6 % (0.0-4.0); HEMOGLOBIN 13.7 g/dL (12.0-18.0); LYMPH # 1.7 K/uL (1.0-4.3); LYMPH % 13.2 % (20.0-40.0); MEAN CELL VOLUME 90.4 fL (80.0-94.0); MEAN CORPUSCULAR HEMOGLOBIN 30.3 pg (27.0-31.0); MEAN CORPUSCULAR HGB CONC 33.5 g/dL (33.0-37.0); MEAN PLATELET VOLUME 7.8 fL (7.2-11.7); MONO # 0.8 K/uL (0.0-0.8); MONO % 6.4 % (0.0-10.0); NEUT # 9.9 K/uL (1.8-7.0); NEUT % 79.1 % (50.0-75.0); NRBC % 0.1 % (0.0-2.0); RBC 4.52 Mil/uL (4.40-5.90); RED CELL DISTRIBUTION WIDTH 15.2 % (11.5-14.5); WHITE BLOOD COUNT 12.5 K/uL (4.8-10.8)
[2018-05-03 19:39] LABS: ALB/GLOB RATIO 1.2 (1.0-2.1); ALBUMIN 4.1 g/dL (3.5-5.0); ALT/SGPT 59 U/L (21-72); AST/SGOT 33 U/L (17-59); BLOOD UREA NITROGEN 20 mg/dL (9-20); CALCIUM 9.1 mg/dl (8.6-10.4); GFR AFRICAN-AMERICAN > 60; GFR NON-AFRICAN AMERICAN > 60
[2018-05-03 19:57] LABS: B-TYPE NATRIURETIC PEPTIDE 4350 pg/mL (0-450)
[2018-05-03] MEDS ORDERED: Sacubitril/Valsartan 49-51 Tab PO SCH (23:30)
--- NOTE | 2018-05-04 01:36 | CP.PCM.HP ---
<BartholomewDanny - Last Filed: 05/04/18 03:13> History of Present Illness - History of Present Illness History of Present Illness: CC: "episode of Heart failure" Patient is a 37 yo M with a Pmhx of stage III congestive heart failure for five years with AICD secondary to sudden cardiac arrest prophylaxis, who comes to the ED due to shortness of breath, swelling in both legs, minor chest pain associated with abdominal distention, and pressure in his head and eyes, that started 3 days ago. Patient says he noticed these symptoms at home. Patient says this is not the first time he has these symptoms. Patient states his shortness of breath worsens when he walks around the house. Patient admits to feeling nauseous today and has not eaten anything since the morning. Patient states he currently sleeps in a sofa, in a 90 degree angle and is not able to lay down flat. He admits to feeling shortness of breath when he sleeps. He denies fever, chills, diaphoresis, weakness, headaches, dizziness, palpitations , vomiting, diarrhea, dysuria or pain in lower extremities. Patient states he is currently being seen at [facility] for possible Heart transplant. PMD: Dr. Moreira Cardio: Dr. Jean Paul Quinteros Pmhx: CHF, IGT Shx: AICD placement (2013), appendicitis (childhood), Bicep tendon repair (2010) Allergies: denies Medications: Entresto 49mg-51mg PO HS, Entresto 24mg-26 mg PO QD, chewable Aspirin 81mg, Spirinolactone 25mg, Lasix 40mg Famhx: CHF (father and uncle) DM (father's side), Thyroid CA (Family member), Stomach CA (aunt) Social Hx: Former smoker, 1 pack every 2 weeks (quitted 19 years ago), Social drinker (quitted 5 years ago), Marihuana recreational use (quitted 5 years ago) . works at [email or web address]. Patient diets consist on no salt meals, mostly salads and vegetables. Lives with significant other and son. Present on Admission - Present on Admission Any Indicators Present on Admission: Yes History of DVT/PE: No History of Uncontrolled Diabetes: No Review of Systems - Constitutional Constitutional: Weight Gain. absent: Chills, Fever, Headache, Weakness Additional comments: Patient Gained 9 pounds in the last 2 days - EENT Eyes: absent: Change in Vision Nose/Mouth/Throat: absent: Dysphagia - Cardiovascular Cardiovascular: Chest Pain, Dyspnea on Exertion, Leg Edema. absent: Lightheadedness, Palpitations Additional comments: Lower extremity swelling in both legs - Respiratory Respiratory: Cough, Dyspnea, Dyspnea on Exertion. absent: Wheezing, Excessive Mucous Production, Change in Mucous Color, Pain with Coughing Additional comments: cough with white phlegm - Gastrointestinal Gastrointestinal: Bloating, Nausea. absent: Abdominal Pain, Constipation, Diarrhea, Loose Stools, Vomiting - Genitourinary Genitourinary: absent: Dysuria, Urinary Frequency - Neurological Neurological: absent: Dizziness, Headaches, Weakness - Psychiatric Psychiatric: absent: Anxiety, Depression - Endocrine Endocrine: Fatigue. absent: Change in Libido, Palpitations Past Patient History - Infectious Disease Hx of Infectious Diseases: None - Tetanus Immunizations Tetanus Immunization: Unknown - Past Medical History & Family History Past Medical History?: Yes - Past Social History Smoking Status: Former Smoker - CARDIAC Hx Congestive Heart Failure: Yes Hx Hypertension: Yes Hx Pacemaker: Yes (AICD 2014) - PULMONARY Hx Bronchitis: Yes - NEUROLOGICAL Hx Neurological Disorder: No - HEENT Hx HEENT Problems: No - RENAL Hx Chronic Kidney Disease: No - ENDOCRINE/METABOLIC Hx Endocrine Disorders: No - HEMATOLOGICAL/ONCOLOGICAL Hx Blood Disorders: No - INTEGUMENTARY Hx Dermatological Problems: No - MUSCULOSKELETAL/RHEUMATOLOGICAL Hx Falls: No - GASTROINTESTINAL Other/Comment: hx appendicitis - GENITOURINARY/GYNECOLOGICAL Hx Genitourinary Disorders: No - PSYCHIATRIC Hx Substance Use: No - SURGICAL HISTORY Hx Appendectomy: Yes - ANESTHESIA Hx Anesthesia: Yes Hx Anesthesia Reactions: No Meds Allergies/Adverse Reactions: Allergies Allergy/AdvReac Type Severity Reaction Status Date / Time No Known Allergies Allergy Verified 05/03/18 18:20 Physical Exam - Constitutional Appears: Well, Non-toxic, No Acute Distress - Head Exam Head Exam: ATRAUMATIC, NORMAL INSPECTION, NORMOCEPHALIC - Eye Exam Eye Exam: EOMI, Normal appearance, PERRL - Neck Exam Neck exam: Positive for: Full Rom, Normal Inspection Additional comments: No JVD noted bilaterally - Respiratory Exam Respiratory Exam: Decreased Breath Sounds. absent: Rales, Rhonchi, Wheezes Additional comments: decreased lung sounds on Right upper and Left upper lobe - Cardiovascular Exam Cardiovascular Exam: Tachycardia, REGULAR RHYTHM, +S1, +S2. absent: Clicks - GI/Abdominal Exam GI & Abdominal Exam: Distended, Hypoactive Bowel Sounds. absent: Guarding, Mass , Rebound, Tenderness - Extremities Exam Extremities exam: Positive for: full ROM. Negative for: calf tenderness, tenderness Additional comments: +2 pitting edema on lower extremities bilaterally negative Homans sign - Neurological Exam Neurological exam: Alert, CN II-XII Intact, Oriented x3 - Psychiatric Exam Psychiatric exam: Normal Affect, Normal Mood - Skin Skin Exam: Intact, Normal Color Results - Vital Signs Recent Vital Signs: Last Vital Signs Temp 98.4 F 05/03/18 21:57 Pulse 112 H 05/03/18 21:57 Resp 18 05/03/18 21:57 BP 102/73 05/04/18 00:25 Pulse Ox 97 05/03/18 21:57 - Labs Result Diagrams: 05/03/18 19:23 05/03/18 19:23 Labs: Laboratory Results - last 24 hr 05/03/18 05/03/18 19:23 19:23 WBC 12.5 H RBC 4.52 Hgb 13.7 Hct 40.8 MCV 90.4 MCH 30.3 MCHC 33.5 RDW 15.2 H Plt Count 326 MPV 7.8 Neut % (Auto) 79.1 H Lymph % (Auto) 13.2 L [place] % (Auto) 6.4 Eos % (Auto) 0.6 Baso % (Auto) 0.7 Neut # (Auto) 9.9 H Lymph # (Auto) 1.7 [place] # (Auto) 0.8 Eos # (Auto) 0.1 Baso # (Auto) 0.1 Sodium 141 Potassium 4.6 Chloride 103 Carbon Dioxide 26 Anion Gap 16 BUN 20 Creatinine 1.1 Est GFR ( Amer) > 60 Est GFR (Non-Af Amer) > 60 Random Glucose 118 H Calcium 9.1 Total Bilirubin 1.9 H AST 33 ALT 59 Alkaline Phosphatase 99 Troponin I 0.0320 NT-Pro-B Natriuret Pep 4350 H Total Protein 7.4 Albumin 4.1 Globulin 3.3 Albumin/Globulin Ratio 1.2 Assessment & Plan - Assessment and Plan (Free Text) Plan: Dyspnea due to acute on chronic CHF Exacerbation * BNP: 4350 * EKG: Sinus tachycardia, Possible left atrial deviation, left axis deviation, HR:110 * Chest Xray: Cardiomegaly, Pulmonary congestion. F/U final report * MARYCHUY x1: negative. F/U MARYCHUY x2 * add Lasix 40mg IVP Q12 * Continue Home meds - Entresto 49mg-51mg PO QHS - Entresto 24mg-26mg PO QD - Aspirin 81mg PO Qdaily - Spironolactone 25 mg PO Qdaily * Consider adding B-Kevin in AM if symptoms improve * Consider digoxin or amiodarone as alternative therapy * Add telemetry * Check I and O * daily weights * F/U lipid panel, HbA1C * F/U CBC, CMP Mag and phosp * F/U repeat 2D echo (last echo 08/2017 - EF 23.1%) * Cardio Consult, Dr Jean Paul Quinteros - F/U recs * Follow up with [employer] for defibrillator check Bilateral lower extremity edema * Most likely from CHF exacerbation * Lasix 40mg IVP Q12 * Continue home meds * Monitor in AM * Check I and O, daily weights Chest Pain * EKG: no STEMI * MARYCHUY x1: negative, F/U ROMIx2 * F/U Mg and Phos * Most likely from CHF exacerbation Leukocytosis * WBC: 12.5 * afebrile * Chest Xray: no signs of pulmonary disease. F/U final report * F/U AM CBC Hx of impaired glucose tolerance * random glucose: 118 * Accuchecks * 02/06 HbA1c: 6.3 * F/U HbA1C Prophylaxis * GI prophylaxis not indicated * Heparin 5,000 U SC Q12h * Heart Healthy diet Case discussed with Dr Jayne Bartholomew, PGY-1 - Date & Time Date: 05/04/18 Time: 03:33 Decision To Admit - Pt Status Changed To: Hospital Disposition Of: Inpatient - Admit Certification Admit to Inpatient:: After my assessment, the patient will require hospitalization for at least two midnights. This is because of the severity of symptoms shown, intensity of services needed, and/or the medical risk in this patient being treated as an outpatient. - InPatient: Physician Admission Certification:: Ronald Godoy - . Bed Request Type: Regular <Ronald Godoy P - Last Filed: 05/04/18 08:07> Results - Vital Signs Recent Vital Signs: Last Vital Signs Temp 98.2 F 05/03/18 23:10 Pulse 103 H 05/04/18 03:31 Resp 20 05/03/18 23:10 BP 102/73 05/04/18 00:25 Pulse Ox 97 05/04/18 01:57 - Labs Result Diagrams: 05/04/18 07:11 05/03/18 19:23 Labs: Laboratory Results - last 24 hr 05/03/18 05/03/18 05/04/18 19:23 19:23 06:26 WBC 12.5 H RBC 4.52 Hgb 13.7 Hct 40.8 MCV 90.4 MCH 30.3 MCHC 33.5 RDW 15.2 H Plt Count 326 MPV 7.8 Neut % (Auto) 79.1 H Lymph % (Auto) 13.2 L [place] % (Auto) 6.4 Eos % (Auto) 0.6 Baso % (Auto) 0.7 Neut # (Auto) 9.9 H Lymph # (Auto) 1.7 [place] # (Auto) 0.8 Eos # (Auto) 0.1 Baso # (Auto) 0.1 Sodium 141 Potassium 4.6 Chloride 103 Carbon Dioxide 26 Anion Gap 16 BUN 20 Creatinine 1.1 Est GFR ( Amer) > 60 Est GFR (Non-Af Amer) > 60 POC Glucose (mg/dL) 102 Random Glucose 118 H Calcium 9.1 Total Bilirubin 1.9 H AST 33 ALT 59 Alkaline Phosphatase 99 Troponin I 0.0320 NT-Pro-B Natriuret Pep 4350 H Total Protein 7.4 Albumin 4.1 Globulin 3.3 Albumin/Globulin Ratio 1.2 05/04/18 07:11 WBC 10.6 RBC 4.29 L Hgb 13.1 Hct 39.1 MCV 91.2 MCH 30.6 MCHC 33.6 RDW 15.3 H Plt Count 295 MPV 8.2 Neut % (Auto) 75.3 H Lymph % (Auto) 15.3 L [place] % (Auto) 7.2 Eos % (Auto) 1.5 Baso % (Auto) 0.7 Neut # (Auto) 8.0 H Lymph # (Auto) 1.6 [place] # (Auto) 0.8 Eos # (Auto) 0.2 Baso # (Auto) 0.1 Sodium Potassium Chloride Carbon Dioxide Anion Gap BUN Creatinine Est GFR ( Amer) Est GFR (Non-Af Amer) POC Glucose (mg/dL) Random Glucose Calcium Total Bilirubin AST ALT Alkaline Phosphatase Troponin I NT-Pro-B Natriuret Pep Total Protein Albumin Globulin Albumin/Globulin Ratio Attending/Attestation - Attestation I have personally seen and examined this patient.: Yes I have fully participated in the care of the patient.: Yes I have reviewed all pertinent clinical information: Yes Notes (Text): 05/04/18 07:30 Nonischemic cardiomyopathy s/p aicd, with worsening in last 3-4 days, 10 lbs weight gain, but at base line orthopenic all the time, functional capacity just walking in the house, gallop could be heard on physical exam. Denies noncompliance with salt, water, or meds Palpitations either form tachycardia vs arrhythmia could triger worsening. Not tolerant to betablocker appears sob gets worse Plan Diuresis with iv lasix, continue home meds Once CHF symptoms improve then trial of beta kevin Repeat Echo to f/u progress of cardiomyopathy AICD interrogation of assessing arrhythmia, if so antiarrhythmics may prevent episode and in turn chf GI/DVT prophylaxis Cardiology consult. See orders for detail.
[2018-05-04 02:07] VITALS: RESP 20
[2018-05-04 07:20] LABS: BASO # 0.1 K/uL (0.0-0.2); BASO % 0.7 % (0.0-2.0); EOS # 0.2 K/uL (0.0-0.7); EOS % 1.5 % (0.0-4.0); HEMOGLOBIN 13.1 g/dL (12.0-18.0); LYMPH # 1.6 K/uL (1.0-4.3); LYMPH % 15.3 % (20.0-40.0); MEAN CELL VOLUME 91.2 fL (80.0-94.0); MEAN CORPUSCULAR HEMOGLOBIN 30.6 pg (27.0-31.0); MEAN CORPUSCULAR HGB CONC 33.6 g/dL (33.0-37.0); MEAN PLATELET VOLUME 8.2 fL (7.2-11.7); MONO # 0.8 K/uL (0.0-0.8); MONO % 7.2 % (0.0-10.0); NEUT % 75.3 % (50.0-75.0); RBC 4.29 Mil/uL (4.40-5.90); RED CELL DISTRIBUTION WIDTH 15.3 % (11.5-14.5); WHITE BLOOD COUNT 10.6 K/uL (4.8-10.8)
[2018-05-04 07:36] LABS: BLOOD UREA NITROGEN 20 mg/dL (9-20); CALCIUM 8.7 mg/dl (8.6-10.4); GFR AFRICAN-AMERICAN > 60; GFR NON-AFRICAN AMERICAN > 60
[2018-05-04 07:47] LABS: LDL CHOLESTEROL 97 mg/dL (0-129)
--- NOTE | 2018-05-04 08:06 | CP.PCM.PN ---
Subjective - Date & Time of Evaluation Date of Evaluation: 05/04/18 Time of Evaluation: 08:06 - Subjective Subjective: Internal Medicine Progress Note - Hospitalist Service Patient seen and examined at bedside. Per nursing no acute events overnight. Patient is doing well, states that shortness of breath has improved. He reports thats he recently started a Keto diet and has been eating a lot of protein rich foods. States that he is complaint with his medications and has been maintaining a low salt diet with fluid restriction. Offers no other complaints at this time. Denies headaches, dizziness, cp, palpitations, abdominal pain, urinary symptoms, changes in bowel habits. Objective - Vital Signs/Intake and Output Vital Signs (last 24 hours): Temp Pulse Resp BP Pulse Ox 98.2 F 103 H 20 102/73 97 05/03/18 23:10 05/04/18 03:31 05/03/18 23:10 05/04/18 00:25 05/04/18 01:57 - Medications Medications: Current Medications Aspirin (Aspirin Chewable) 81 mg PO DAILY [facility] Furosemide (Lasix) 40 mg IVP Q12 [facility] Last Admin: 05/04/18 00:25 Dose: 40 mg Heparin Sodium (Porcine) (Heparin) 5,000 units SC Q12 [facility] Sacubitril/Valsartan (Entresto 24 Mg-26 Mg) 1 tab PO DAILY [facility] Sacubitril/Valsartan (Entresto 49 Mg-51 Mg) 1 tab PO HS [facility] Last Admin: 05/04/18 01:21 Dose: 1 tab Spironolactone (Aldactone) 25 mg PO DAILY [facility] - Labs Labs: 05/04/18 07:11 05/04/18 07:11 - Constitutional Appears: Well, Non-toxic, No Acute Distress - Head Exam Head Exam: ATRAUMATIC, NORMAL INSPECTION, NORMOCEPHALIC - Eye Exam Eye Exam: EOMI, Normal appearance Pupil Exam: NORMAL ACCOMODATION - ENT Exam ENT Exam: Mucous Membranes Moist - Neck Exam Neck Exam: Full ROM - Respiratory Exam Respiratory Exam: Decreased Breath Sounds, NORMAL BREATHING PATTERN. absent: Rales, Rhonchi, Wheezes - Cardiovascular Exam Cardiovascular Exam: REGULAR RHYTHM, +S1, +S2 - GI/Abdominal Exam GI & Abdominal Exam: Soft, Normal Bowel Sounds. absent: Guarding, Rigid, Tenderness - Rectal Exam Rectal Exam: Deferred - Extremities Exam Extremities Exam: Full ROM. absent: Calf Tenderness, Tenderness Additional comments: +1 pitting edema bilaterally - Back Exam Back Exam: NORMAL INSPECTION - Neurological Exam Neurological Exam: Alert, Awake, Oriented x3 - Psychiatric Exam Psychiatric exam: Normal Affect, Normal Mood - Skin Skin Exam: Dry, Normal Color, Warm Assessment and Plan - Assessment and Plan (Free Text) Assessment: A/P: Patient is a 37 year old male with past medical history of systolic congestive heart failure s/p AICD, Hyperlipidemia, Impaired glucose tolerance presented to the ED with progressive dyspnea on exertion and bilateral lower extremity swelling. Acute on Chronic Systolic congestive heart failure -Stable, afebrile -Monitor on telemetry -BNP on admission 4350 -Echo completed, f/u official report -Last echo 08/2017 showed LVEF 23%, systolic fxn severely impaired, LA severely dilated (see full report) -Continue Lasix 40mg Q12H IVP -Continue Entresto 49mg-51mg PO QHS, Entresto 24mg-26mg PO QD -Continue Aldactone 25mg PO daily -Monitor daily weights, Strict I/Os -Patient is being followed by I transplant team, next appointment is in May -Cardiology on consult, Dr Quinteros, help appreciated Chest Tightness/Chest Pain, r/o ACS -States that symptoms have improved -Initial Troponin was negative, trend MARYCHUY Q6H -Continue ASA 81mg PO daily -Cardiology on consult, help appreciated History of hyperlipidemia -Lipid panel: Triglycerides 103, Cholesterol 142, LDL 97, HDL Leukocytois -WBC on admission 12.5, now normalized -Likely reactive, no active signs of infection at this time -Will continue to monitor GI/DVT ppx: -No GI ppx indicated at this time -Heparin 5000 SC Q12H Plan discussed with Dr Leigh Cruz DO PGY-2
[2018-05-04 08:33] LABS: HDL CHOLESTEROL 21 mg/dL (30-70)
--- NOTE | 2018-05-04 09:00 | RAD ---
Chest x-ray single frontal view History: Shortness of breath. Comparison: 02/11/2018 Findings: Moderate venous congestion. Cardiomegaly. Degenerative changes in the spine. Left-sided pacer and or battery device projecting over the left lower can thorax. Impression: Moderate venous congestion. Cardiomegaly.
[2018-05-04 09:02] LABS: CK-MB 0.71 ng/mL (0.0-3.38)
[2018-05-04] MEDS ORDERED: Sacubitril/Valsartan 24-26mg Tab PO SCH (10:00)
--- NOTE | 2018-05-04 12:19 | CP.PCM.CON ---
History of Present Illness - History of Present Illness History of Present Illness: patient seen/examined. full consult to follow. acute on chronic systolic dysfunction. currently followed by I trasnplant team. stable for discharge. Past Patient History - Infectious Disease Hx of Infectious Diseases: None - Tetanus Immunizations Tetanus Immunization: Unknown - Past Medical History & Family History Past Medical History?: Yes - Past Social History Smoking Status: Former Smoker - CARDIAC Hx Congestive Heart Failure: Yes Hx Hypertension: Yes Hx Pacemaker: Yes (AICD 2014) - PULMONARY Hx Bronchitis: Yes - NEUROLOGICAL Hx Neurological Disorder: No - HEENT Hx HEENT Problems: No - RENAL Hx Chronic Kidney Disease: No - ENDOCRINE/METABOLIC Hx Endocrine Disorders: No - HEMATOLOGICAL/ONCOLOGICAL Hx Blood Disorders: No - INTEGUMENTARY Hx Dermatological Problems: No - MUSCULOSKELETAL/RHEUMATOLOGICAL Hx Falls: No - GASTROINTESTINAL Other/Comment: hx appendicitis - GENITOURINARY/GYNECOLOGICAL Hx Genitourinary Disorders: No - PSYCHIATRIC Hx Substance Use: No - SURGICAL HISTORY Hx Appendectomy: Yes - ANESTHESIA Hx Anesthesia: Yes Hx Anesthesia Reactions: No Meds Allergies/Adverse Reactions: Allergies Allergy/AdvReac Type Severity Reaction Status Date / Time No Known Allergies Allergy Verified 05/03/18 18:20 - Medications Medications: Current Medications Aspirin (Aspirin Chewable) 81 mg PO DAILY [facility] Last Admin: 05/04/18 10:02 Dose: 81 mg Furosemide (Lasix) 40 mg IVP Q12 [facility] Last Admin: 05/04/18 10:07 Dose: 40 mg Heparin Sodium (Porcine) (Heparin) 5,000 units SC Q12 [facility] Last Admin: 05/04/18 10:03 Dose: 5,000 units Sacubitril/Valsartan (Entresto 24 Mg-26 Mg) 1 tab PO DAILY [facility] Last Admin: 05/04/18 10:02 Dose: 1 tab Sacubitril/Valsartan (Entresto 49 Mg-51 Mg) 1 tab PO HS [facility] Last Admin: 05/04/18 01:21 Dose: 1 tab Spironolactone (Aldactone) 25 mg PO DAILY [facility] Last Admin: 05/04/18 10:02 Dose: 25 mg Results - Vital Signs Recent Vital Signs: Last Vital Signs Temp 98 F 05/04/18 07:00 Pulse 89 05/04/18 07:00 Resp 20 05/04/18 07:00 BP 101/69 05/04/18 10:07 Pulse Ox 99 05/04/18 10:47 - Labs Result Diagrams: 05/04/18 07:11 05/04/18 07:11 Labs: Laboratory Results - last 24 hr 05/03/18 05/03/18 05/04/18 19:23 19:23 06:26 WBC 12.5 H RBC 4.52 Hgb 13.7 Hct 40.8 MCV 90.4 MCH 30.3 MCHC 33.5 RDW 15.2 H Plt Count 326 MPV 7.8 Neut % (Auto) 79.1 H Lymph % (Auto) 13.2 L [place] % (Auto) 6.4 Eos % (Auto) 0.6 Baso % (Auto) 0.7 Neut # (Auto) 9.9 H Lymph # (Auto) 1.7 [place] # (Auto) 0.8 Eos # (Auto) 0.1 Baso # (Auto) 0.1 Sodium 141 Potassium 4.6 Chloride 103 Carbon Dioxide 26 Anion Gap 16 BUN 20 Creatinine 1.1 Est GFR ( Amer) > 60 Est GFR (Non-Af Amer) > 60 POC Glucose (mg/dL) 102 Random Glucose 118 H Calcium 9.1 Phosphorus Magnesium Total Bilirubin 1.9 H AST 33 ALT 59 Alkaline Phosphatase 99 Total Creatine Kinase CK-MB (Mass) Troponin I 0.0320 NT-Pro-B Natriuret Pep 4350 H Total Protein 7.4 Albumin 4.1 Globulin 3.3 Albumin/Globulin Ratio 1.2 Triglycerides Cholesterol LDL Cholesterol Direct HDL Cholesterol 05/04/18 05/04/18 07:11 07:11 WBC 10.6 RBC 4.29 L Hgb 13.1 Hct 39.1 MCV 91.2 MCH 30.6 MCHC 33.6 RDW 15.3 H Plt Count 295 MPV 8.2 Neut % (Auto) 75.3 H Lymph % (Auto) 15.3 L [place] % (Auto) 7.2 Eos % (Auto) 1.5 Baso % (Auto) 0.7 Neut # (Auto) 8.0 H Lymph # (Auto) 1.6 [place] # (Auto) 0.8 Eos # (Auto) 0.2 Baso # (Auto) 0.1 Sodium 138 Potassium 4.6 Chloride 102 Carbon Dioxide 25 Anion Gap 16 BUN 20 Creatinine 1.1 Est GFR ( Amer) > 60 Est GFR (Non-Af Amer) > 60 POC Glucose (mg/dL) Random Glucose 107 Calcium 8.7 Phosphorus 4.3 Magnesium 2.0 Total Bilirubin AST ALT Alkaline Phosphatase Total Creatine Kinase 110 CK-MB (Mass) 0.71 Troponin I 0.0340 NT-Pro-B Natriuret Pep Total Protein Albumin Globulin Albumin/Globulin Ratio Triglycerides 103 D Cholesterol 142 LDL Cholesterol Direct 97 HDL Cholesterol 21 L
--- NOTE | 2018-05-04 12:19 | CP.PCM.CON ---
Past Patient History - Infectious Disease Hx of Infectious Diseases: None - Tetanus Immunizations Tetanus Immunization: Unknown - Past Medical History & Family History Past Medical History?: Yes - Past Social History Smoking Status: Former Smoker - CARDIAC Hx Congestive Heart Failure: Yes Hx Hypertension: Yes Hx Pacemaker: Yes (AICD 2014) - PULMONARY Hx Bronchitis: Yes - NEUROLOGICAL Hx Neurological Disorder: No - HEENT Hx HEENT Problems: No - RENAL Hx Chronic Kidney Disease: No - ENDOCRINE/METABOLIC Hx Endocrine Disorders: No - HEMATOLOGICAL/ONCOLOGICAL Hx Blood Disorders: No - INTEGUMENTARY Hx Dermatological Problems: No - MUSCULOSKELETAL/RHEUMATOLOGICAL Hx Falls: No - GASTROINTESTINAL Other/Comment: hx appendicitis - GENITOURINARY/GYNECOLOGICAL Hx Genitourinary Disorders: No - PSYCHIATRIC Hx Substance Use: No - SURGICAL HISTORY Hx Appendectomy: Yes - ANESTHESIA Hx Anesthesia: Yes Hx Anesthesia Reactions: No Meds Allergies/Adverse Reactions: Allergies Allergy/AdvReac Type Severity Reaction Status Date / Time No Known Allergies Allergy Verified 05/03/18 18:20 - Medications Medications: Current Medications Aspirin (Aspirin Chewable) 81 mg PO DAILY [facility] Last Admin: 05/04/18 10:02 Dose: 81 mg Furosemide (Lasix) 40 mg IVP Q12 [facility] Last Admin: 05/04/18 10:07 Dose: 40 mg Heparin Sodium (Porcine) (Heparin) 5,000 units SC Q12 [facility] Last Admin: 05/04/18 10:03 Dose: 5,000 units Sacubitril/Valsartan (Entresto 24 Mg-26 Mg) 1 tab PO DAILY [facility] Last Admin: 05/04/18 10:02 Dose: 1 tab Sacubitril/Valsartan (Entresto 49 Mg-51 Mg) 1 tab PO HS [facility] Last Admin: 05/04/18 01:21 Dose: 1 tab Spironolactone (Aldactone) 25 mg PO DAILY [facility] Last Admin: 05/04/18 10:02 Dose: 25 mg Results - Vital Signs Recent Vital Signs: Last Vital Signs Temp 98 F 05/04/18 07:00 Pulse 89 05/04/18 07:00 Resp 20 05/04/18 07:00 BP 101/69 05/04/18 10:07 Pulse Ox 99 05/04/18 10:47 - Labs Result Diagrams: 05/04/18 07:11 05/04/18 07:11 Labs: Laboratory Results - last 24 hr 05/03/18 05/03/18 05/04/18 19:23 19:23 06:26 WBC 12.5 H RBC 4.52 Hgb 13.7 Hct 40.8 MCV 90.4 MCH 30.3 MCHC 33.5 RDW 15.2 H Plt Count 326 MPV 7.8 Neut % (Auto) 79.1 H Lymph % (Auto) 13.2 L [place] % (Auto) 6.4 Eos % (Auto) 0.6 Baso % (Auto) 0.7 Neut # (Auto) 9.9 H Lymph # (Auto) 1.7 [place] # (Auto) 0.8 Eos # (Auto) 0.1 Baso # (Auto) 0.1 Sodium 141 Potassium 4.6 Chloride 103 Carbon Dioxide 26 Anion Gap 16 BUN 20 Creatinine 1.1 Est GFR ( Amer) > 60 Est GFR (Non-Af Amer) > 60 POC Glucose (mg/dL) 102 Random Glucose 118 H Calcium 9.1 Phosphorus Magnesium Total Bilirubin 1.9 H AST 33 ALT 59 Alkaline Phosphatase 99 Total Creatine Kinase CK-MB (Mass) Troponin I 0.0320 NT-Pro-B Natriuret Pep 4350 H Total Protein 7.4 Albumin 4.1 Globulin 3.3 Albumin/Globulin Ratio 1.2 Triglycerides Cholesterol LDL Cholesterol Direct HDL Cholesterol 05/04/18 05/04/18 07:11 07:11 WBC 10.6 RBC 4.29 L Hgb 13.1 Hct 39.1 MCV 91.2 MCH 30.6 MCHC 33.6 RDW 15.3 H Plt Count 295 MPV 8.2 Neut % (Auto) 75.3 H Lymph % (Auto) 15.3 L [place] % (Auto) 7.2 Eos % (Auto) 1.5 Baso % (Auto) 0.7 Neut # (Auto) 8.0 H Lymph # (Auto) 1.6 [place] # (Auto) 0.8 Eos # (Auto) 0.2 Baso # (Auto) 0.1 Sodium 138 Potassium 4.6 Chloride 102 Carbon Dioxide 25 Anion Gap 16 BUN 20 Creatinine 1.1 Est GFR ( Amer) > 60 Est GFR (Non-Af Amer) > 60 POC Glucose (mg/dL) Random Glucose 107 Calcium 8.7 Phosphorus 4.3 Magnesium 2.0 Total Bilirubin AST ALT Alkaline Phosphatase Total Creatine Kinase 110 CK-MB (Mass) 0.71 Troponin I 0.0340 NT-Pro-B Natriuret Pep Total Protein Albumin Globulin Albumin/Globulin Ratio Triglycerides 103 D Cholesterol 142 LDL Cholesterol Direct 97 HDL Cholesterol 21 L
[2018-05-04 14:45] LABS: BARBITURATES, UR NEGATIVE (NEGATIVE); BENZODIAZEPINES, UR NEGATIVE (NEGATIVE); OPIATES, UR NEGATIVE (NEGATIVE); PHENCYCLIDINE, UR NEGATIVE (NEGATIVE)
[2018-05-04 14:47] LABS: CK-MB 0.87 ng/mL (0.0-3.38); TROPONIN I 0.024 ng/mL (0.00-0.120)
[2018-05-04 15:47] VITALS: BP 92/68; PULSE 95; TEMP 97.5; O2SAT 94
--- NOTE | 2018-05-04 15:49 | CP.PCM.DIS ---
<Faina Cruz - Last Filed: 05/04/18 20:42> Provider - Provider Date of Admission: 05/03/18 20:29 Attending physician: Leigh Ramirez DO Consults: Cardiology: [place] Time Spent in preparation of Discharge (in minutes): 32 Hospital Course - Lab Results Lab Results: Most Recent Lab Values WBC 10.6 K/uL (4.8-10.8) 05/04/18 07:11 RBC 4.29 Mil/uL (4.40-5.90) L 05/04/18 07:11 Hgb 13.1 g/dL (12.0-18.0) 05/04/18 07:11 Hct 39.1 % (35.0-51.0) 05/04/18 07:11 MCV 91.2 fL (80.0-94.0) 05/04/18 07:11 MCH 30.6 pg (27.0-31.0) 05/04/18 07:11 MCHC 33.6 g/dL (33.0-37.0) 05/04/18 07:11 RDW 15.3 % (11.5-14.5) H 05/04/18 07:11 Plt Count 295 K/uL (130-400) 05/04/18 07:11 MPV 8.2 fL (7.2-11.7) 05/04/18 07:11 Neut % (Auto) 75.3 % (50.0-75.0) H 05/04/18 07:11 Lymph % (Auto) 15.3 % (20.0-40.0) L 05/04/18 07:11 [place] % (Auto) 7.2 % (0.0-10.0) 05/04/18 07:11 Eos % (Auto) 1.5 % (0.0-4.0) 05/04/18 07:11 Baso % (Auto) 0.7 % (0.0-2.0) 05/04/18 07:11 Neut # (Auto) 8.0 K/uL (1.8-7.0) H 05/04/18 07:11 Lymph # (Auto) 1.6 K/uL (1.0-4.3) 05/04/18 07:11 [place] # (Auto) 0.8 K/uL (0.0-0.8) 05/04/18 07:11 Eos # (Auto) 0.2 K/uL (0.0-0.7) 05/04/18 07:11 Baso # (Auto) 0.1 K/uL (0.0-0.2) 05/04/18 07:11 Sodium 138 mmol/L (132-148) 05/04/18 07:11 Potassium 4.6 mmol/L (3.6-5.2) 05/04/18 07:11 Chloride 102 mmol/L (98-107) 05/04/18 07:11 Carbon Dioxide 25 mmol/L (22-30) 05/04/18 07:11 Anion Gap 16 (10-20) 05/04/18 07:11 BUN 20 mg/dL (9-20) 05/04/18 07:11 Creatinine 1.1 mg/dL (0.8-1.5) 05/04/18 07:11 Est GFR ( Amer) > 60 05/04/18 07:11 Est GFR (Non-Af Amer) > 60 05/04/18 07:11 POC Glucose (mg/dL) 101 mg/dL (65-110) 05/04/18 11:23 Random Glucose 107 mg/dL (75-110) 05/04/18 07:11 Calcium 8.7 mg/dl (8.6-10.4) 05/04/18 07:11 Phosphorus 4.3 mg/dL (2.5-4.5) 05/04/18 07:11 Magnesium 2.0 mg/dL (1.6-2.3) 05/04/18 07:11 Total Bilirubin 1.9 mg/dL (0.2-1.3) H 05/03/18 19:23 AST 33 U/L (17-59) 05/03/18 19:23 ALT 59 U/L (21-72) 05/03/18 19:23 Alkaline Phosphatase 99 U/L (38-126) 05/03/18 19:23 Total Creatine Kinase 123 U/L (55-170) 05/04/18 14:20 CK-MB (Mass) 0.87 ng/mL (0.0-3.38) 05/04/18 14:20 Troponin I 0.0240 ng/mL (0.00-0.120) 05/04/18 14:20 NT-Pro-B Natriuret Pep 4350 pg/mL (0-450) H 05/03/18 19:23 Total Protein 7.4 g/dL (6.3-8.3) 05/03/18 19:23 Albumin 4.1 g/dL (3.5-5.0) 05/03/18 19:23 Globulin 3.3 gm/dL (2.2-3.9) 05/03/18 19:23 Albumin/Globulin Ratio 1.2 (1.0-2.1) 05/03/18 19:23 Triglycerides 103 mg/dL (0-149) D 05/04/18 07:11 Cholesterol 142 mg/dL (0-199) 05/04/18 07:11 LDL Cholesterol Direct 97 mg/dL (0-129) 05/04/18 07:11 HDL Cholesterol 21 mg/dL (30-70) L 05/04/18 07:11 Urine Opiates Screen Negative (NEGATIVE) 05/04/18 14:18 Urine Methadone Screen Negative (NEGATIVE) 05/04/18 14:18 Ur Barbiturates Screen Negative (NEGATIVE) 05/04/18 14:18 Ur Phencyclidine Scrn Negative (NEGATIVE) 05/04/18 14:18 Ur Amphetamines Screen Negative (NEGATIVE) 05/04/18 14:18 U Benzodiazepines Scrn Negative (NEGATIVE) 05/04/18 14:18 U Oth Cocaine Metabols Negative (NEGATIVE) 05/04/18 14:18 U Cannabinoids Screen Negative (NEGATIVE) 05/04/18 14:18 - Hospital Course Hospital Course: HPI: Patient is a 37 yo M with a Pmhx of stage III congestive heart failure for five years with AICD secondary to sudden cardiac arrest prophylaxis, who comes to the ED due to shortness of breath, swelling in both legs, minor chest pain associated with abdominal distention, and pressure in his head and eyes, that started 3 days ago. Patient says he noticed these symptoms at home. Patient says this is not the first time he has these symptoms. Patient states his shortness of breath worsens when he walks around the house. Patient admits to feeling nauseous today and has not eaten anything since the morning. Patient states he currently sleeps in a sofa, in a 90 degree angle and is not able to lay down flat. He admits to feeling shortness of breath when he sleeps. He denies fever, chills, diaphoresis, weakness, headaches, dizziness, palpitations , vomiting, diarrhea, dysuria or pain in lower extremities. Patient states he is currently being seen at [facility] for possible Heart transplant. Hospital Course: Patient was admitted for acute on chronic CHF exacerbation. BNP was 4350 on admission. EKG showed sinus tachycardia with possible left atrial enlargement. CXR showed moderate venous congestion and cardiomegaly. Patient was started on Lasix IVP and home medications were restarted. UTOX was negative. Echocardiogram was completed, official report is currently pending. Troponins were negative x 3. ACS was ruled out. Cardiology, Dr Quinteros, was on consult. Lipid panel showed Triglycerides 103, Cholesterol 142, LDL 97, HDL 21. HgA1c was drawn, results still pending. Patient was cleared for discharge home by Cardiology. On day of discharge patient stated that his shortness of breath has resolved. He reports that he recently started a Keto diet and has been eating a lot of protein rich foods. States that he is complaint with his medications and has been maintaining a low salt diet with fluid restriction. Offers no other complaints at this time. Denies headaches, dizziness, cp, palpitations, abdominal pain, urinary symptoms, changes in bowel habits. Patient states that he has an appointment in May to follow up with [facility] for heart transplant. Patient advised to adhere to fluid restriction and to follow up with Bariatric home health billing specialist for weight loss counselling. He is to follow up with his PMD and Solutions Operator within 1 week. Discharge Medications: Toprol XL 12.5mg PO daily #30 Entresto 49mg-51mg PO QHS, Entresto 24mg-26mg PO QD Aldactone 25mg PO daily Lasix 20mg PO daily Vasotec 5mg PO BID Aspirin 81mg PO daily Discharge Diagnosis: Acute on Chronic Systolic CHF Exacerbation Obesity (BMI > 41) Discharge Exam - Additional Findings Additional findings: - Constitutional Appears: Well, Non-toxic, No Acute Distress - Head Exam Head Exam: ATRAUMATIC, NORMAL INSPECTION, NORMOCEPHALIC - Eye Exam Eye Exam: EOMI, Normal appearance Pupil Exam: NORMAL ACCOMODATION - ENT Exam ENT Exam: Mucous Membranes Moist - Neck Exam Neck Exam: Full ROM - Respiratory Exam Respiratory Exam: Decreased Breath Sounds, NORMAL BREATHING PATTERN. absent: Rales, Rhonchi, Wheezes - Cardiovascular Exam Cardiovascular Exam: REGULAR RHYTHM, +S1, +S2 - GI/Abdominal Exam GI & Abdominal Exam: Soft, Normal Bowel Sounds. absent: Guarding, Rigid, Tenderness - Rectal Exam Rectal Exam: Deferred - Extremities Exam Extremities Exam: Full ROM. absent: Calf Tenderness, Tenderness Additional comments: +1 pitting edema bilaterally - Back Exam Back Exam: NORMAL INSPECTION - Neurological Exam Neurological Exam: Alert, Awake, Oriented x3 - Psychiatric Exam Psychiatric exam: Normal Affect, Normal Mood - Skin Skin Exam: Dry, Normal Color, Warm Discharge Plan - Discharge Medications Prescriptions: Metoprolol Succinate [Toprol Xl] 12.5 mg PO DAILY #30 tab.er.24h - Follow Up Plan Condition: STABLE Disposition: HOME/ ROUTINE Instructions: Heart Failure, Adult (DC) Additional Instructions: 1. Patient is clear for discharge home 2. Please continue all home medications as prescribed 3. A prescription for Toprol XL 12.5mg PO daily was given to you today, please continue this medication 4. Please adhere to the daily 2L fluid restriction and low salt diet 5. Follow up with your Solutions Operator within 1 week, follow up with [facility] for heart transplant as scheduled 6. If having any worsening of symptoms, return to nearest ED Referrals: Martin Quinteros MD [Staff Provider] - <Leigh Ramirez V - Last Filed: 05/04/18 21:20> Provider - Provider Date of Admission: 05/03/18 20:29 Attending physician: Leigh Ramirez DO Hospital Course - Lab Results Lab Results: Most Recent Lab Values WBC 10.6 K/uL (4.8-10.8) 05/04/18 07:11 RBC 4.29 Mil/uL (4.40-5.90) L 05/04/18 07:11 Hgb 13.1 g/dL (12.0-18.0) 05/04/18 07:11 Hct 39.1 % (35.0-51.0) 05/04/18 07:11 MCV 91.2 fL (80.0-94.0) 05/04/18 07:11 MCH 30.6 pg (27.0-31.0) 05/04/18 07:11 MCHC 33.6 g/dL (33.0-37.0) 05/04/18 07:11 RDW 15.3 % (11.5-14.5) H 05/04/18 07:11 Plt Count 295 K/uL (130-400) 05/04/18 07:11 MPV 8.2 fL (7.2-11.7) 05/04/18 07:11 Neut % (Auto) 75.3 % (50.0-75.0) H 05/04/18 07:11 Lymph % (Auto) 15.3 % (20.0-40.0) L 05/04/18 07:11 [place] % (Auto) 7.2 % (0.0-10.0) 05/04/18 07:11 Eos % (Auto) 1.5 % (0.0-4.0) 05/04/18 07:11 Baso % (Auto) 0.7 % (0.0-2.0) 05/04/18 07:11 Neut # (Auto) 8.0 K/uL (1.8-7.0) H 05/04/18 07:11 Lymph # (Auto) 1.6 K/uL (1.0-4.3) 05/04/18 07:11 [place] # (Auto) 0.8 K/uL (0.0-0.8) 05/04/18 07:11 Eos # (Auto) 0.2 K/uL (0.0-0.7) 05/04/18 07:11 Baso # (Auto) 0.1 K/uL (0.0-0.2) 05/04/18 07:11 Sodium 138 mmol/L (132-148) 05/04/18 07:11 Potassium 4.6 mmol/L (3.6-5.2) 05/04/18 07:11 Chloride 102 mmol/L (98-107) 05/04/18 07:11 Carbon Dioxide 25 mmol/L (22-30) 05/04/18 07:11 Anion Gap 16 (10-20) 05/04/18 07:11 BUN 20 mg/dL (9-20) 05/04/18 07:11 Creatinine 1.1 mg/dL (0.8-1.5) 05/04/18 07:11 Est GFR ( Amer) > 60 05/04/18 07:11 Est GFR (Non-Af Amer) > 60 05/04/18 07:11 POC Glucose (mg/dL) 109 mg/dL (65-110) 05/04/18 16:45 Random Glucose 107 mg/dL (75-110) 05/04/18 07:11 Calcium 8.7 mg/dl (8.6-10.4) 05/04/18 07:11 Phosphorus 4.3 mg/dL (2.5-4.5) 05/04/18 07:11 Magnesium 2.0 mg/dL (1.6-2.3) 05/04/18 07:11 Total Bilirubin 1.9 mg/dL (0.2-1.3) H 05/03/18 19:23 AST 33 U/L (17-59) 05/03/18 19:23 ALT 59 U/L (21-72) 05/03/18 19:23 Alkaline Phosphatase 99 U/L (38-126) 05/03/18 19:23 Total Creatine Kinase 123 U/L (55-170) 05/04/18 14:20 CK-MB (Mass) 0.87 ng/mL (0.0-3.38) 05/04/18 14:20 Troponin I 0.0240 ng/mL (0.00-0.120) 05/04/18 14:20 NT-Pro-B Natriuret Pep 4350 pg/mL (0-450) H 05/03/18 19:23 Total Protein 7.4 g/dL (6.3-8.3) 05/03/18 19:23 Albumin 4.1 g/dL (3.5-5.0) 05/03/18 19:23 Globulin 3.3 gm/dL (2.2-3.9) 05/03/18 19:23 Albumin/Globulin Ratio 1.2 (1.0-2.1) 05/03/18 19:23 Triglycerides 103 mg/dL (0-149) D 05/04/18 07:11 Cholesterol 142 mg/dL (0-199) 05/04/18 07:11 LDL Cholesterol Direct 97 mg/dL (0-129) 05/04/18 07:11 HDL Cholesterol 21 mg/dL (30-70) L 05/04/18 07:11 Urine Opiates Screen Negative (NEGATIVE) 05/04/18 14:18 Urine Methadone Screen Negative (NEGATIVE) 05/04/18 14:18 Ur Barbiturates Screen Negative (NEGATIVE) 05/04/18 14:18 Ur Phencyclidine Scrn Negative (NEGATIVE) 05/04/18 14:18 Ur Amphetamines Screen Negative (NEGATIVE) 05/04/18 14:18 U Benzodiazepines Scrn Negative (NEGATIVE) 05/04/18 14:18 U Oth Cocaine Metabols Negative (NEGATIVE) 05/04/18 14:18 U Cannabinoids Screen Negative (NEGATIVE) 05/04/18 14:18 Attending/Attestation - Attestation I have personally seen and examined this patient.: Yes I have fully participated in the care of the patient.: Yes I have reviewed all pertinent clinical information, including history, physical exam and plan: Yes Notes (Text): Patient seen, examined, and case discussed with medical director occupational health. Patient seen this afternoon with and child at bedside. patient reports he is feeling better, denies chest pain, denies shortness of breathe, denies palpitations. Patient reports recent dietary change wherein he and his is engaging in ketogenic diet to help reduce weight, but he admits he has been increasing his fluid intake instead of changing his diet. I did recommend for him to see bariatric home health billing specialist to help with him and his in terms of weight loss. I also did explain to him that he need to be on fluid restriction given he has dilated cardiomyopathy. Patient reports he has tried various beta-blockers in the past but reports he feels "chest tightness" which is why he does not take the beta-geneva as he should. Patient is aware of side effects including erectile tissue dysfunction but he reports he does not experience that. Patient reports he does not smoke but reports occasionally smoking. I did speak with radiologist, Dr Quinteros, he reports patient has severe LV dysfunction which beta-geneva is indicated and does not attribute chest tightness to the beta-geneva. Patient does have follow-up appointment with [facility] where he is being followup for possible heart transplant; for May. He reports he has been seeing a group of doctors with [facility]. Patient's cardiac enzymes are negative X3. UDS negative Per cardiology, patient is stable from their standpoint. Discharge Medications: Toprol XL 12.5mg PO daily #30 Entresto 49mg-51mg PO QHS, Entresto 24mg-26mg PO QD Aldactone 25mg PO daily Lasix 20mg PO daily Aspirin 81mg PO daily Prescription upon discharge: 1) Toprol XL 12.5mg PO daily This is a summary of patient's hospitalization. Please see EMR for further details Discharge Diagnosis: 1) Acute on Chronic Systolic CHF Exacerbation Assessment/Plan * observed on telemetry * echocardiogram: pending official read * Prior echo in 2017 systolic available in the EMR <40% * cardiac enyzmes X3 negative * Recommended for beta-geneva given severe LV dysfunction; patient noted history of noncompliance to beta-blockers in the past * c/w aspirin, entresto, loop diuretic, aldactone, beta geneva (no kris inhibitor since there is arb in entresto) * Stable from cardiology standpoint for discharge * f/u cardiology and [facility] cardiology upon discharge; patient reports he has pending appointment at [facility] in May * heart failure core measures completed 2) History of noncompliance * with beta-blockers 3) Obesity (BMI > 41) * advised fluid restriction * advised to follow-up with bariatric home health billing specialist to formulate weight loss plan who will consider patient's medical history 4) Prophylactic care * ambulatory
--- NOTE | 2018-05-04 16:26 | PCM.HF ---
Heart Failure Core Measure - Heart Failure Ejection Fraction: Less Than 40 % Left Ventricular Function to be assessed after discharge: Yes ROSA Inhibitor Prescribed: No Contraindication/Reason for not providing: on arb Beta-Kevin Prescribed: Metoprolol Succinate Angiotensin II Receptor Kevin Prescribed: Yes Contraindication/Reason for not providing: in entresto AnticoagulationTherapy for Atrial Fibrillation/Atrialflutter: No Contraindication/Reason for not providing: not clinically indicated Aldosterone Antagonist Prescribed: Yes Hydralazine Nitrate Prescribed: No Contraindication/Reason for not providing: not clinically indicated Implantable Cardioverter Defibrillator Therapy: No Contraindication/Reason for not providing: not clinically indicated Cardiac Resynchronization Therapy Prescribed: No Contraindication/Reason for not providing: not clinically indicated - Follow up Will be discharged to: Home Follow Up Date (must be within 7 days from discharge): 05/11/18 Follow Up Time: 09:00
[2018-05-05] MEDS ORDERED: Metoprolol Succinate 12.5 mg XL Tab PO SCH (10:00)
--- NOTE | 2018-05-05 22:02 | CARD ---
APPROVED REPORT Date of service: 05/04/2018 EXAM: Two-dimensional and M-mode echocardiogram with Doppler and color Doppler. Other Information Quality : FairRhythm : NSR INDICATION Dyspnea Congestive Heart Failure COPD TDS RISK FACTORS Obesity M-Mode DIMENSIONS RVDd3.67 (2.1-3.2cm)Left Atrium (MM)5.34 (2.5-4.0cm) IVSd0.62 (0.7-1.1cm)Aortic Root3.53 (2.2-3.7cm) LVDd8.49 (4.0-5.6cm)Aortic Cusp Exc.2.39 (1.5-2.0cm) PWd0.62 (0.7-1.1cm)FS (%) 13 % LVDs7.40 (2.0-3.8cm)LVEF (%)27 (>50%) Mitral Valve MV E Egceklhu956.1cm/sE/A ratio0.0 TDI E/Lateral E'0.0E/Medial E'0.0 Tricuspid Valve TR Peak [id number] Peak Gr.[id number] LEFT VENTRICLE The Left Ventricle is severely dilated. There is normal left ventricular wall thickness. Left ventricle systolic function is severely impaired. The Ejection Fraction is 25-30%. There is severe global hypokinesis of the left ventricle. The left ventricular diastolic function is normal. No obvious left ventricle thrombus noted on this study. RIGHT VENTRICLE The right ventricle is normal size. There is normal right ventricular wall thickness. Systolic function is severely reduced. ATRIA The left atrium is moderately dilated. The right atrium size is normal. There is a catheter/pacemaker lead seen in the right atrium. The interatrial septum bows toward right atrium consistent with elevated left atrial pressure. AORTIC VALVE The aortic valve is normal in structure. No aortic regurgitation is present. There is no aortic valvular stenosis. There is no aortic valvular vegetation. MITRAL VALVE The mitral valve is normal in structure. There is no evidence of mitral valve prolapse. There is no mitral valve stenosis. Mitral regurgitation is mild. TRICUSPID VALVE The tricuspid valve is normal in structure. There is trace tricuspid regurgitation. Right ventricular systolic pressure is estimated at less than 30 mmHg. There is no pulmonary hypertension. PULMONIC VALVE The pulmonic valve is not well visualized. PERICARDIAL EFFUSION There is no significant pericardial effusion. <Conclusion> Dilated cardiomyopathy. Left ventricle systolic function is severely impaired. The Ejection Fraction is 25-30%. No aortic regurgitation is present. Mitral regurgitation is mild. There is trace tricuspid regurgitation. There is no pulmonary hypertension. The pulmonic valve is not well visualized.
== END 2018-05-04 17:00 | disposition home or self-care (01) ==
LOC: C.ER 18:15 → C.9E 20:29 → C.6T 21:20
PROVIDERS: ADMIT Hospitalist; ATTEND Hospitalist
DX: I11.0 Hypertensive heart disease with heart failure (principal); I42.0 Dilated cardiomyopathy; E66.9 Obesity, unspecified; I50.23 Acute on chronic systolic (congestive) heart failure; Z68.41 Body mass index [BMI] 40.0-44.9, adult; Z87.891 Personal history of nicotine dependence
CPT/HCPCS: 36415; 71045; 80048; 80053; 80061; 82948; 83036; 83735; 83880; 84100; 84484; 85025; 93306; 99284; G0378; G0480; J1644; J1940

== ENCOUNTER 2018-05-29 21:43 | Inpatient (IN) | payer OTHER ==
[2018-05-29] MEDS ORDERED: Nitroglycerin 2% Ointment Foilpak UD TOP STA (22:03)
--- NOTE | 2018-05-29 22:05 | C.PDOC ---
History Of Present Illness 37 year old male presents to the ER with a complaint of SOB on exertion with chest tightness. Patient states he has been told he has cardiomyopathy in the past. Denies nausea or vomiting. Chief Complaint (Nursing): Shortness Of Breath History Per: Patient History/Exam Limitations: no limitations Onset/Duration Of Symptoms: Days Current Symptoms Are (Timing): Still Present Current Respiratory Medications: None Associated Symptoms: Other (SOB on exertion, Chest tightness). denies: Fever, Chills Recent travel outside of the [place]: No Past Medical History Reviewed: Historical Data, Nursing Documentation, Vital Signs Vital Signs: Last Vital Signs Temp 98.4 F 05/29/18 21:45 Pulse 108 H 05/30/18 00:45 Resp 18 05/30/18 00:45 BP 105/53 L 05/30/18 00:45 Pulse Ox 98 05/30/18 01:51 - Medical History PMH: Bronchitis, CHF, HTN Denies: Chronic Kidney Disease Surgical History: Appendectomy, Pacemaker ([id number]) - [employer] Procedures CORONAR ARTERIOGR-2 CATH (10/06/13) RT & LT HEART ANGIOCARD (10/06/13) RT/LEFT HEART CARD CATH (10/06/13) Family History: States: [place], CAD, Hypertension (CHF) - Social History Hx Tobacco Use: No Hx Alcohol Use: No Hx Substance Use: No - Immunization History Hx Tetanus Toxoid Vaccination: No Hx Influenza Vaccination: No Hx Pneumococcal Vaccination: No Review Of Systems Constitutional: Negative for: Fever, Chills Cardiovascular: Negative for: Chest Pain, Palpitations Respiratory: Positive for: Shortness of Breath, SOB with Excertion, Other ( Chest tightness) Gastrointestinal: Negative for: Nausea, Vomiting Physical Exam - Physical Exam Appears: Non-toxic, Other (Mildly dyspneic) Skin: Normal Color, Warm, Dry Head: Atraumatic, Normacephalic Eye(s): bilateral: Normal Inspection Oral Mucosa: Moist Neck: Normal, Supple Chest: Symmetrical, No Tenderness Cardiovascular: Rhythm Regular Respiratory: Rales (Bilateral basilar), No Rhonchi, No Wheezing Gastrointestinal/Abdominal: Soft, No Tenderness Extremity: Normal ROM (x4), Pedal Edema (2+) Neurological/Psych: Oriented x3, Normal Speech ED Course And Treatment - Laboratory Results Result Diagrams: 05/29/18 22:08 05/29/18 22:08 ECG: Interpreted By Me, Viewed By Me ECG Rhythm: Sinus Rhythm Interpretation Of ECG: Sinus tachycardia, IVCD, no acute ST-T changes, LAD. Rate From EC O2 Sat by Pulse Oximetry: 98 (Room air) Pulse Ox Interpretation: Normal - Radiology CXR: Interpreted by Me, Viewed By Me CXR Interpretation: Yes: Cardiomegaly, Other (pulmonary congestion.) Progress Note: EKG, blood work, and CXR ordered. Lasix administered and nitrobid applied. Disposition Discussed With Dr.: Ronald Godoy Doctor Will See Patient In The: Hospital Counseled Patient/Family Regarding: Diagnosis - Disposition Disposition: HOSPITALIZED Disposition Time: 01:50 Condition: STABLE Forms: [facility] (Albanian) - POA Present On Arrival: None - Clinical Impression Clinical Impression: CHF (congestive heart failure), Pneumonia - Scribe Statement The provider has reviewed the documentation as recorded by the Scribe Zan George All medical record entries made by the Scribe were at my direction and personally dictated by me. I have reviewed the chart and agree that the record accurately reflects my personal performance of the history, physical exam, medical decision making, and the department course for this patient. I have also personally directed, reviewed, and agree with the discharge instructions and disposition.
[2018-05-29] MEDS ORDERED: Nitroglycerin 2% Ointment Foilpak UD TOP ONE (22:10)
[2018-05-29 22:12] LABS: BASO # 0.1 K/uL (0.0-0.2); EOS # 0.1 K/uL (0.0-0.7); HEMOGLOBIN 13.9 g/dL (12.0-18.0); NEUT # 10.8 K/uL (1.8-7.0)
[2018-05-29 22:20] LABS: BASO % 0.7 % (0.0-2.0); EOS % 0.9 % (0.0-4.0); LYMPH # 2.1 K/uL (1.0-4.3); LYMPH % 14.8 % (20.0-40.0); MEAN CORPUSCULAR HEMOGLOBIN 29.9 pg (27.0-31.0); MEAN CORPUSCULAR HGB CONC 33.2 g/dL (33.0-37.0); MEAN PLATELET VOLUME 8.4 fL (7.2-11.7); MONO % 7.3 % (0.0-10.0); NEUT % 76.3 % (50.0-75.0); NRBC % 0.1 % (0.0-2.0); RBC 4.64 Mil/uL (4.40-5.90); RED CELL DISTRIBUTION WIDTH 15.3 % (11.5-14.5); WHITE BLOOD COUNT 14.2 K/uL (4.8-10.8)
[2018-05-29 22:25] LABS: ALB/GLOB RATIO 1.1 (1.0-2.1); ALBUMIN 3.9 g/dL (3.5-5.0); ALT/SGPT 50 U/L (21-72); AST/SGOT 27 U/L (17-59); BLOOD UREA NITROGEN 22 mg/dL (9-20); CALCIUM 9.1 mg/dl (8.6-10.4); GFR AFRICAN-AMERICAN > 60; GFR NON-AFRICAN AMERICAN > 60
[2018-05-29 22:30] LABS: INR 1.4; PROTHROMBIN TIME 15.7 SECONDS (9.7-12.2)
[2018-05-29 22:37] LABS: B-TYPE NATRIURETIC PEPTIDE 4010 pg/mL (0-450)
[2018-05-29] MEDS ORDERED: Iodixanol 320 MG/ML 100 ML BOTTLE IV ONE (23:48)
[2018-05-30] MEDS ORDERED: cefTRIAXone IV 1 gm in Dextros 50 ML IVPB ONE ×2 (01:46→02:03)
[2018-05-30] MEDS ORDERED: Azithromycin 500mg/250ML NS 500 MG/250 ML BAG IV STA (01:49)
--- NOTE | 2018-05-30 02:19 | CP.PCM.HP ---
History of Present Illness - History of Present Illness History of Present Illness: CC : Worsening shortness of breath HPI: Patient is a 37 year old male with past medical history of CHF with AICD and IGT, who presents to the ED with complaints worsening shortness of breath and non-productive that has been going on for the past 4 days. Patient states that he has noticed severe worsening symptoms to the point that he was gasping for breath from deep sleep. Patient states that he has not noted any significant weight gain or change in shoe size over that past 4 days but continues to sleep in a reclining sofa at a 90 degree angle. Patient denies any fever, chills, nausea, vomiting, dizziness, recent travels/sickness or sick contact but admits to chest discomfort secondary to cough, palpitations. Patient states that he has been compliant with his medications but he not on beta-geneva due to side effects. PMD: Dr. Moreira Cardio: Dr. Jean Paul Quinteros PMHx: CHF, IGT PSHx: AICD placement (2013), appendectomy (childhood), Bicep tendon repair (2010 ) FHX: CHF (father and uncle) DM (father's side), Thyroid CA (Family member), Stomach CA (aunt) Medications: Entresto 49mg-51mg PO HS, Entresto 24mg-26 mg PO QD, chewable Aspirin 81mg, Spirinolactone 25mg, Lasix 40mg Allergies: Denies Social Hx: Works at [employer]. Lives with significant other and son. Former smoker, 1 pack every 2 weeks (quitted 19 years ago), Social drinker (quitted 5 years ago), Marijuana recreational use (quitted 5 years ago). Patient diets consist on no salt meals, mostly salads and vegetables. Present on Admission - Present on Admission Any Indicators Present on Admission: No Review of Systems - Constitutional Constitutional: Fatigue. absent: Chills, Fever, Headache - EENT Ears: Dizziness - Cardiovascular Cardiovascular: Dyspnea, Dyspnea on Exertion, Orthopnea, Palpitations. absent: Chest Pain, Chest Pain with Activity, Leg Edema, Lightheadedness, Pedal Edema - Respiratory Respiratory: Dyspnea, Pain with Coughing - Gastrointestinal Gastrointestinal: absent: Abdominal Pain, Diarrhea, Nausea, Vomiting - Musculoskeletal Musculoskeletal: absent: Numbness, Tingling - Neurological Neurological: Dizziness. absent: Numbness, Headaches, Lack of Coordination, Tingling, Weakness - Endocrine Endocrine: Fatigue, Palpitations Past Patient History - Infectious Disease Hx of Infectious Diseases: None - Tetanus Immunizations Tetanus Immunization: Unknown - Past Medical History & Family History Past Medical History?: Yes - Past Social History Smoking Status: Former Smoker - CARDIAC Hx Congestive Heart Failure: Yes Hx Hypertension: Yes Hx Pacemaker: Yes ([id number]) - PULMONARY Hx Bronchitis: Yes - NEUROLOGICAL Hx Neurological Disorder: No - HEENT Hx HEENT Problems: No - RENAL Hx Chronic Kidney Disease: No - ENDOCRINE/METABOLIC Hx Endocrine Disorders: No - HEMATOLOGICAL/ONCOLOGICAL Hx Blood Disorders: No - INTEGUMENTARY Hx Dermatological Problems: No - MUSCULOSKELETAL/RHEUMATOLOGICAL Hx Falls: No - GASTROINTESTINAL Other/Comment: hx appendicitis - GENITOURINARY/GYNECOLOGICAL Hx Genitourinary Disorders: No - PSYCHIATRIC Hx Substance Use: No - SURGICAL HISTORY Hx Appendectomy: Yes - ANESTHESIA Hx Anesthesia: Yes Hx Anesthesia Reactions: No Meds Allergies/Adverse Reactions: Allergies Allergy/AdvReac Type Severity Reaction Status Date / Time No Known Allergies Allergy Verified 05/29/18 21:52 Physical Exam - Constitutional Appears: No Acute Distress - Head Exam Head Exam: ATRAUMATIC, NORMAL INSPECTION - Eye Exam Eye Exam: EOMI, Normal appearance Pupil Exam: NORMAL ACCOMODATION - ENT Exam ENT Exam: Mucous Membranes Moist - Respiratory Exam Respiratory Exam: Clear to Auscultation Bilateral, NORMAL BREATHING PATTERN. absent: Prolonged Expiratory Phase, Rhonchi, Wheezes, Respiratory Distress - Cardiovascular Exam Cardiovascular Exam: Tachycardia, REGULAR RHYTHM, +S1, +S2. absent: JVD - GI/Abdominal Exam GI & Abdominal Exam: Normal Bowel Sounds, Soft. absent: Diminished Bowel Sounds , Distended, Guarding - Extremities Exam Extremities exam: Positive for: normal inspection. Negative for: calf tenderness, pedal edema - Back Exam Back exam: NORMAL INSPECTION - Psychiatric Exam Psychiatric exam: Normal Affect - Skin Skin Exam: Normal Color Results - Vital Signs Recent Vital Signs: Last Vital Signs Temp 98.4 F 05/29/18 21:45 Pulse 108 H 05/30/18 00:45 Resp 18 05/30/18 00:45 BP 105/53 L 05/30/18 00:45 Pulse Ox 98 05/30/18 01:51 - Labs Result Diagrams: 05/29/18 22:08 05/29/18 22:08 Labs: Laboratory Results - last 24 hr 05/29/18 05/29/18 05/29/18 22:08 22:08 22:08 WBC 14.2 H RBC 4.64 Hgb 13.9 Hct 41.8 MCV 90.0 MCH 29.9 MCHC 33.2 RDW 15.3 H Plt Count 339 MPV 8.4 Neut % (Auto) 76.3 H Lymph % (Auto) 14.8 L George % (Auto) 7.3 Eos % (Auto) 0.9 Baso % (Auto) 0.7 Neut # (Auto) 10.8 H Lymph # (Auto) 2.1 George # (Auto) 1.0 H Eos # (Auto) 0.1 Baso # (Auto) 0.1 PT 15.7 H INR 1.4 APTT 30 D-Dimer, Quantitative 348 H Sodium 140 Potassium 4.2 Chloride 103 Carbon Dioxide 23 Anion Gap 18 BUN 22 H Creatinine 1.2 Est GFR ( Amer) > 60 Est GFR (Non-Af Amer) > 60 Random Glucose 131 H Calcium 9.1 Total Bilirubin 1.9 H AST 27 ALT 50 Alkaline Phosphatase 108 Troponin I 0.0250 NT-Pro-B Natriuret Pep 4010 H Total Protein 7.4 Albumin 3.9 Globulin 3.4 Albumin/Globulin Ratio 1.1 Assessment & Plan (1) Acute on chronic systolic (congestive) heart failure Assessment and Plan: On admission: * BNP: 4010 * EKG: * Chest X-ray: Cardiomegaly with pulmomary congestion and possible right upper lobe pneumonia * Echo (): Dilated cardiomyopathy. Left systolic function is severely impaired. EF is 25-30%. No AR present. Mild MR and trace of TR * MARYCHUY negative X1, f/u MARYCHUY X1 * F/u venous doppler LE b/l HgbA1C: 6.1 (05/04/18) Lipid Panel: - TGL: 103, Chol: 142, LDL:97 and HDL: 21 (05/04/18) Medication/Management: * Continue Home meds - Entresto 49mg-51mg PO QD - Aspirin 81mg PO Qdaily - Spironolactone 25 mg PO BID - Lasix 40mg IV daily Status: Acute (2) Pneumonia Assessment and Plan: Possible or questionable RUP patchy infiltrate * Rocephin 1gm IV daily * Doxycycline 100mg PO Q12H * Florastor 250mg PO BID * Robitussin DM 5ml PO Q4H PRN Status: Acute (3) IGT (impaired glucose tolerance) Assessment and Plan: HgbA1C: 6.1 (05/04/18) Conservative management Diabetic diet Status: Acute (4) Prophylactic measure Assessment and Plan: GI : Not indicated DVT: No SCDs currently until possible DVT is ruled out All plans and management discussed with Dr. Godoy Status: Acute
[2018-05-30] MEDS ORDERED: Enoxaparin 120 mg Syringe SC STA (02:25)
--- NOTE | 2018-05-30 02:31 | CP.PCM.PN ---
Subjective - Date & Time of Evaluation Date of Evaluation: 05/30/18 Time of Evaluation: 02:27 - Subjective Subjective: Assessment * SOB with new finding of wedge shaped peripheral right upper lobe lateral infiltrate DD of pulm infarct vs pna * H/o non ischemic cardiomyopathy s/p AICD unable to tolerate betablocker Plan * Rocephin, doxycycline * Venous doppler both upper and lower ext, given one dose of therapeutic lovenox * change lasix to iv as still some increase volume, to be careful for chronic hypotension * Home meds * See orders for detail. Objective - Vital Signs/Intake and Output Vital Signs (last 24 hours): Temp Pulse Resp BP Pulse Ox 98.4 F 108 H 18 105/53 L 98 05/29/18 21:45 05/30/18 00:45 05/30/18 00:45 05/30/18 00:45 05/30/18 01:51 Intake and Output: 05/29/18 05/30/18 18:59 06:59 Output Total 700 Balance -700 - Medications Medications: Current Medications Aspirin (Aspirin Chewable) 81 mg PO DAILY [facility] Doxycycline Hyclate (Doryx) 100 mg PO Q12H [facility] PRN Reason: Protocol Enoxaparin Sodium (Lovenox) 110 mg SC STAT STA Stop: 05/30/18 02:26 Furosemide (Lasix) 40 mg IVP DAILY [facility] Azithromycin (Zithromax 500mg In Ns Addvantage) 500 mg in 250 mls @ 166.667 mls /hr IV STAT STA PRN Reason: Protocol Stop: 05/30/18 03:18 Ceftriaxone Sodium 1 gm/ (Sodium Chloride) 100 mls @ 100 mls/hr IVPB DAILY [facility] PRN Reason: Protocol Sacubitril/Valsartan (Entresto 49 Mg-51 Mg) tab PO DAILY [facility] Spironolactone (Aldactone) 25 mg PO BID [facility] - Labs Labs: 05/29/18 22:08 05/29/18 22:08 PT 15.7 SECONDS (9.7-12.2) H 05/29/18 22:08 INR 1.4 05/29/18 22:08 APTT 30 SECONDS (21-34) 05/29/18 22:08
[2018-05-30] MEDS ORDERED: Enoxaparin 100 mg Syringe ONE (02:53)
[2018-05-30] MEDS: guaiFENesin DM 100 mg-10 mg/5 ml UD PO PRN (03:14)
[2018-05-30 05:07] LABS: CK-MB 0.85 ng/mL (0.0-3.38); TROPONIN I 0.04 ng/mL (0.00-0.120)
[2018-05-30] MEDS ORDERED: Sacubitril/Valsartan 49-51 Tab PO SCH (10:00)
--- NOTE | 2018-05-30 10:07 | RAD ---
Date of service: 05/29/2018 PROCEDURE: CHEST RADIOGRAPH, 1 VIEW HISTORY: SOB COMPARISON: 05/03/2018 FINDINGS: LUNGS: Pulmonary venous congestion moderate. Right perihilar peribronchial thickening and/or edema here asymmetrically prominent. PLEURA: No pneumothorax or pleural fluid seen. CARDIOVASCULAR: Marked cardiomegaly-similar. Pulmonary venous congestion increased since prior exam A pacemaker lead projecting diagonally over the left can thorax battery pack portion not visualized on this exam probably partially visualized left inferior chest abdominal wall. OSSEOUS STRUCTURES: No significant abnormalities. VISUALIZED UPPER ABDOMEN: Normal. OTHER FINDINGS: None. IMPRESSION: Interval increased CHF Other findings as above.
[2018-05-30] MEDS: Saccharomyces Boulardi 250 mg Cap PO SCH ×2 (10:20→20:08)
--- NOTE | 2018-05-30 12:15 | CP.PCM.PN ---
Addendum entered and electronically signed by Rocío Dillon DO 05/30/18 17 :13: Patient is utilizing supplemental O2 via NC @ 2L. Original Note: <Rocío Dillon - Last Filed: 05/30/18 17:11> Subjective - Date & Time of Evaluation Date of Evaluation: 05/30/18 Time of Evaluation: 10:00 - Subjective Subjective: PGY-1 Rocío Dillon D.O. Medicine progress note for Dr. Nando Shields's service: Patient seen and examined this morning. He does not appear to be in acute distress, but he is sitting upright on the side of the bed in a tripod-like position. He endorses SOB but improved from yesterday. He also endorses mild dry cough. He denies chest pain. He admits to taking twice as much Lasix for the last few days due to his increasing shortness of breath. He also reports that he has to take about 20 breaks even when walking 10 houses down from him. He denies fever and chills. He denies abd pain/n/v/d/c. Objective - Vital Signs/Intake and Output Vital Signs (last 24 hours): Temp Pulse Resp BP Pulse Ox 98.4 F 104 H 20 95/60 L 98 05/30/18 07:15 05/30/18 08:00 05/30/18 07:15 05/30/18 11:14 05/30/18 07:15 Intake and Output: 05/30/18 05/30/18 06:59 18:59 Output Total 700 Balance -700 - Medications Medications: Current Medications Aspirin (Aspirin Chewable) 81 mg PO DAILY [facility] Last Admin: 05/30/18 10:20 Dose: 81 mg Doxycycline Hyclate (Doryx) 100 mg PO Q12H [facility] PRN Reason: Protocol Last Admin: 05/30/18 03:14 Dose: 100 mg Furosemide (Lasix) 20 mg IVP DAILY [facility] Last Admin: 05/30/18 11:14 Dose: 20 mg Guaifenesin/Dextromethorphan (Robitussin Dm) 5 ml PO Q4H PRN PRN Reason: Cough Last Admin: 05/30/18 03:14 Dose: 5 ml Heparin Sodium (Porcine) (Heparin) 5,000 units SC Q12 [facility] Ceftriaxone Sodium 1 gm/ (Sodium Chloride) 100 mls @ 100 mls/hr IVPB DAILY [facility] PRN Reason: Protocol Last Admin: 05/30/18 10:20 Dose: 100 mls/hr Pneumococcal Polyvalent Vaccine (Pneumovax 23 Vaccine) 0.5 ml IM .ONCE ONE Stop: 06/01/18 10:01 Saccharomyces Boulardii (Florastor) 250 mg PO BID [facility] Last Admin: 05/30/18 10:20 Dose: 250 mg - Labs Labs: 05/29/18 22:08 05/29/18 22:08 PT 15.7 SECONDS (9.7-12.2) H 05/29/18 22:08 INR 1.4 05/29/18 22:08 APTT 30 SECONDS (21-34) 05/29/18 22:08 - Constitutional Appears: Non-toxic, No Acute Distress, Other (obese) - Head Exam Head Exam: ATRAUMATIC, NORMAL INSPECTION, NORMOCEPHALIC - Eye Exam Eye Exam: EOMI, Normal appearance - ENT Exam ENT Exam: Mucous Membranes Moist, Normal Exam - Neck Exam Neck Exam: Normal Inspection - Respiratory Exam Respiratory Exam: Decreased Breath Sounds, NORMAL BREATHING PATTERN. absent: Rhonchi, Wheezes, Respiratory Distress - Cardiovascular Exam Cardiovascular Exam: REGULAR RHYTHM, +S1, +S2. absent: Murmur - GI/Abdominal Exam GI & Abdominal Exam: Soft, Normal Bowel Sounds. absent: Mass Additional comments: obese - Rectal Exam Rectal Exam: Deferred - Extremities Exam Extremities Exam: Full ROM, Normal Inspection. absent: Pedal Edema, Tenderness - Back Exam Back Exam: NORMAL INSPECTION - Neurological Exam Neurological Exam: Alert, Awake, CN II-XII Intact, Normal Gait, Oriented x3 - Psychiatric Exam Psychiatric exam: Normal Affect, Normal Mood - Skin Skin Exam: Dry, Intact, Normal Color, Warm Assessment and Plan - Assessment and Plan (Free Text) Assessment: Patient is a 37 yo male with past medical history of CHF with AICD and IGT, who presented with complaints worsening shortness of breath and non-productive that has been going on for the past 4 days. CTA chest reveals a RUL pulmonary infarct. Plan: Acute on chronic systolic CHF - On admission: BNP 4010 but patient on Entresto - CXR 05/29: Cardiomegaly with pulmomary congestion and possible right upper lobe pneumonia - Echo (04/2018): Dilated cardiomyopathy. Left systolic function is severely impaired. EF is 25-30%. No AR present. Mild MR and trace of TR - Troponins negative x3 - F/u venous doppler LE b/l - Continue home Aspirin 81mg PO daily - Hold Entresto 49mg-51mg PO QD due to low BP - Hold Spironolactone 25 mg PO BID due to low BP - Decrease Lasix to 20mg IV daily - Cardiology consult (Dr. Quinteros) Pulmonary infarction posterior RUL, acute - CTA chest 05/30 IMPRESSION: Findings suggestive of mild pulmonary edema. Wedge-shaped defects periphery posterior segment right upper lobe. The overall findings are suspicious for pulmonary infarction. Careful assessment of pulmonary arteries however fails to identify acute pulmonary embolism. - Lovenox 100 mg SC BID - F/u Dopplers of extremities Possible pneumonia, acute - CXR 05/29 LUNGS: Pulmonary venous congestion moderate. Right perihilar peribronchial thickening and/or edema here asymmetrically prominent. - Rocephin 1gm IV daily (started 05/29) - Doxycycline 100mg PO Q12H (started 05/29) - Robitussin DM 5ml PO Q4H PRN IGT (impaired glucose tolerance), chronic, stable - HgbA1C 04/2018: 6.1 IVF: not indicated GI ppx: Florastor 250 mg PO BID VTE ppx: therapetic Lovenox 100 mg SC BID Diet: Heart healthy Code status: full code <Nando Shields H - Last Filed: 05/30/18 17:35> Objective - Vital Signs/Intake and Output Vital Signs (last 24 hours): Temp Pulse Resp BP Pulse Ox 97.3 F L 111 H 20 97/65 L 98 05/30/18 15:40 05/30/18 15:40 05/30/18 15:40 05/30/18 15:40 05/30/18 15:40 Intake and Output: 05/30/18 05/30/18 06:59 18:59 Output Total 700 Balance -700 - Medications Medications: Current Medications Aspirin (Aspirin Chewable) 81 mg PO DAILY [facility] Last Admin: 05/30/18 10:20 Dose: 81 mg Doxycycline Hyclate (Doryx) 100 mg PO Q12H [facility] PRN Reason: Protocol Last Admin: 05/30/18 13:32 Dose: Not Given Enoxaparin Sodium (Lovenox) 110 mg SC Q12 [facility] Furosemide (Lasix) 20 mg IVP DAILY [facility] Last Admin: 05/30/18 11:14 Dose: 20 mg Guaifenesin/Dextromethorphan (Robitussin Dm) 5 ml PO Q4H PRN PRN Reason: Cough Last Admin: 05/30/18 03:14 Dose: 5 ml Ceftriaxone Sodium 1 gm/ (Sodium Chloride) 100 mls @ 100 mls/hr IVPB DAILY [facility] PRN Reason: Protocol Last Admin: 05/30/18 10:20 Dose: 100 mls/hr Pneumococcal Polyvalent Vaccine (Pneumovax 23 Vaccine) 0.5 ml IM .ONCE ONE Stop: 06/01/18 10:01 Saccharomyces Boulardii (Florastor) 250 mg PO BID [facility] Last Admin: 05/30/18 10:20 Dose: 250 mg - Labs Labs: 05/29/18 22:08 05/29/18 22:08 PT 15.7 SECONDS (9.7-12.2) H 05/29/18 22:08 INR 1.4 05/29/18 22:08 APTT 30 SECONDS (21-34) 05/29/18 22:08 Attending/Attestation - Attestation I have personally seen and examined this patient.: Yes I have fully participated in the care of the patient.: Yes I have reviewed all pertinent clinical information, including history, physical exam and plan: Yes Notes (Text): 05/30/18 17:32 Medical attending: Patient was seen and examined by me. Agree with the above note by the resident The patient was not in any acute distress when we came and saw him. He had a CT scan return and it further gave information that he did have a pulmonary wedge shaped infarct. The study could not see a PE Because of the extensive cardiac history and considering these CT findings will start on lovenox 110 mg SC BID for the time being. We may need a pulmonology evaluation as well. He also remains on abx Doxycycline as well as Rocephin. Nando Shields
--- NOTE | 2018-05-30 14:48 | CT ---
Date of service: 05/30/2018 PROCEDURE: CT Chest with contrast (Pulmonary Angiogram) HISTORY: Chest pain, shortness of breath. Elevated D-dimer. COMPARISON: 09/20/2016 CT pulmonary angiogram TECHNIQUE: Axial computed tomography images were obtained of the chest in the pulmonary arterial phase of enhancement. Coronal and sagittal reformatted images were created and reviewed. Intravenous contrast dose: 100 cc Visipaque 320. Mean Hounsfield unit values in the main pulmonary artery: 226.81. Radiation dose: Total exam DLP = mGy-cm. This CT exam was performed using one or more of the following dose reduction techniques: Automated exposure control, adjustment of the mA and/or kV according to patient size, and/or use of iterative reconstruction technique. FINDINGS: PULMONARY ARTERIES: Dilated main pulmonary artery 3.2 cm consistent with pulmonary arterial hypertension. . No pulmonary embolism. AORTA: No acute findings. No thoracic aortic aneurysm. LUNGS: Wedge-shaped infiltrate posterior segment right upper lobe adjacent to the major fissure. Mild ground-glass haziness to the lungs a nonspecific finding can be seen with pulmonary edema. PLEURAL SPACES: Unremarkable. No effusion or pneumothorax. HEART: Cardiomegaly. Small pericardial effusion. Position/ configuration of pacemaker LYMPH NODES: No lymphadenopathy. BONES, CHEST WALL: Unremarkable. No fracture or destructive lesion OTHER FINDINGS: Unremarkable. IMPRESSION: Findings suggestive of mild pulmonary edema. Wedge-shaped defects periphery posterior segment right upper lobe. The overall findings are suspicious for pulmonary infarction. Careful assessment of pulmonary arteries however fails to identify acute pulmonary embolism. Concordant results (preliminary interpretation) provided by [facility]. Procedure Completed: 00:24. Preliminary ([facility]) Report: Dictated and Authenticated: 13:03. Final Interpretation: 14:46. May 30, 2018.
[2018-05-30] MEDS: Enoxaparin 120 mg Syringe SC SCH (22:01)
--- NOTE | 2018-05-31 06:14 | CP.PCM.PN ---
<Rocío Dillon - Last Filed: 05/31/18 18:23> Subjective - Date & Time of Evaluation Date of Evaluation: 05/31/18 Time of Evaluation: 11:20 - Subjective Subjective: PGY-1 Rocío Dillon D.O. Medicine progress note for Dr. Nando Shields's service: Patient seen and examined this morning. He does not appear to be in acute distress; he is sitting upright in a chair. he says he feels like his breathing and cough are better. However, he was unable to sleep last night without O2. He is now currently utilizing 3L of supp O2. He was able to walk a short distance today. He denies chest pain. He denies fever and chills. He denies abd pain/n/v/ d/c. Objective - Vital Signs/Intake and Output Vital Signs (last 24 hours): Temp Pulse Resp BP Pulse Ox 98 F 97 H 20 107/69 98 05/31/18 04:00 05/31/18 04:00 05/31/18 04:00 05/31/18 04:00 05/31/18 04:00 - Medications Medications: Current Medications Aspirin (Aspirin Chewable) 81 mg PO DAILY [facility] Last Admin: 05/30/18 10:20 Dose: 81 mg Doxycycline Hyclate (Doryx) 100 mg PO Q12H [facility] PRN Reason: Protocol Last Admin: 05/31/18 03:00 Dose: 100 mg Enoxaparin Sodium (Lovenox) 110 mg SC Q12 [facility] Last Admin: 05/30/18 22:01 Dose: 110 mg Furosemide (Lasix) 20 mg IVP DAILY [facility] Last Admin: 05/30/18 11:14 Dose: 20 mg Guaifenesin/Dextromethorphan (Robitussin Dm) 5 ml PO Q4H PRN PRN Reason: Cough Last Admin: 05/30/18 03:14 Dose: 5 ml Ceftriaxone Sodium 1 gm/ (Sodium Chloride) 100 mls @ 100 mls/hr IVPB DAILY [facility] PRN Reason: Protocol Last Admin: 05/30/18 10:20 Dose: 100 mls/hr Pneumococcal Polyvalent Vaccine (Pneumovax 23 Vaccine) 0.5 ml IM .ONCE ONE Stop: 06/01/18 10:01 Saccharomyces Boulardii (Florastor) 250 mg PO BID [facility] Last Admin: 05/30/18 20:08 Dose: 250 mg - Labs Labs: 05/29/18 22:08 05/29/18 22:08 PT 15.7 SECONDS (9.7-12.2) H 05/29/18 22:08 INR 1.4 05/29/18 22:08 APTT 30 SECONDS (21-34) 05/29/18 22:08 - Constitutional Appears: Well, No Acute Distress, Other (obese) - Head Exam Head Exam: ATRAUMATIC, NORMAL INSPECTION, NORMOCEPHALIC - Eye Exam Eye Exam: EOMI, Normal appearance - ENT Exam ENT Exam: Mucous Membranes Moist, Normal Exam - Neck Exam Neck Exam: Normal Inspection - Respiratory Exam Respiratory Exam: Decreased Breath Sounds, NORMAL BREATHING PATTERN. absent: Rhonchi, Wheezes Additional comments: on O2 NC 2L - Cardiovascular Exam Cardiovascular Exam: REGULAR RHYTHM, +S1, +S2. absent: Murmur Additional comments: ICD on left along midaxillary line - GI/Abdominal Exam GI & Abdominal Exam: Soft, Normal Bowel Sounds Additional comments: obese - Rectal Exam Rectal Exam: Deferred - Extremities Exam Extremities Exam: Normal Inspection. absent: Calf Tenderness, Pedal Edema - Back Exam Back Exam: NORMAL INSPECTION - Neurological Exam Neurological Exam: Alert, Awake, CN II-XII Intact, Normal Gait, Oriented x3 - Psychiatric Exam Psychiatric exam: Normal Affect, Normal Mood - Skin Skin Exam: Dry, Intact, Normal Color, Warm Assessment and Plan - Assessment and Plan (Free Text) Assessment: Patient is a 37 yo male with past medical history of CHF with AICD and IGT, who presented with complaints worsening shortness of breath and non-productive that has been going on for the past 4 days. CTA chest reveals a posterior RUL pulmonary infarct. Plan: Acute on chronic systolic CHF - On admission: BNP 4010 but patient on Entresto - CXR 05/29: Cardiomegaly with pulmomary congestion and possible right upper lobe pneumonia - Repeat CXR 05/31: no infection identified, positive for pulm edema - Echo (04/2018): Dilated cardiomyopathy. Left systolic function is severely impaired. EF is 25-30%. No AR present. Mild MR and trace of TR - Troponins negative x3 - Continue home Aspirin 81mg PO daily - Hold Entresto 49mg-51mg PO QD due to low BP - Hold Spironolactone 25 mg PO BID due to low BP - Decrease Lasix to 20mg IV daily - Cardiology consult (Dr. Quinteros) Pulmonary infarction posterior RUL, acute- suspect why patient symptomatic - Supplemental O2 NC prn- currently requiring 3L - ASA 81 mg PO daily - CTA chest 05/30 IMPRESSION: Findings suggestive of mild pulmonary edema. Wedge-shaped defects periphery posterior segment right upper lobe. The overall findings are suspicious for pulmonary infarction. Careful assessment of pulmonary arteries however fails to identify acute pulmonary embolism. - Lovenox 100 mg SC BID - Dopplers of upper and lower extremities negative for DVTs Possible pneumonia- not seen on repeat CXR or CT, WBC decreased - Discontinue Rocephin 1gm IV daily (started 05/29, d/c 05/31) - Discontinue Doxycycline 100mg PO Q12H (started 05/29, d/c 05/31) - Robitussin DM 5ml PO Q4H PRN - Blood Cx negative >24hrs IGT (impaired glucose tolerance), chronic, stable - HgbA1C 04/2018: 6.1 IVF: not indicated GI ppx: Florastor 250 mg PO BID VTE ppx: therapetic Lovenox 110 mg SC BID Diet: Heart healthy Code status: full code <AlysonNando H - Last Filed: 05/31/18 18:59> Objective - Vital Signs/Intake and Output Vital Signs (last 24 hours): Temp Pulse Resp BP Pulse Ox 98 F 104 H 20 117/82 97 05/31/18 15:43 05/31/18 15:43 05/31/18 15:43 05/31/18 15:43 05/31/18 15:43 - Medications Medications: Current Medications Aspirin (Aspirin Chewable) 81 mg PO DAILY [facility] Last Admin: 05/31/18 09:49 Dose: 81 mg Enoxaparin Sodium (Lovenox) 110 mg SC Q12 [facility] Last Admin: 05/31/18 09:51 Dose: 110 mg Furosemide (Lasix) 20 mg IVP DAILY [facility] Last Admin: 05/31/18 09:50 Dose: 20 mg Guaifenesin/Dextromethorphan (Robitussin Dm) 5 ml PO Q4H PRN PRN Reason: Cough Last Admin: 05/30/18 03:14 Dose: 5 ml Pneumococcal Polyvalent Vaccine (Pneumovax 23 Vaccine) 0.5 ml IM .ONCE ONE Stop: 06/01/18 10:01 Saccharomyces Boulardii (Florastor) 250 mg PO BID [facility] Last Admin: 05/31/18 18:03 Dose: 250 mg - Labs Labs: 05/31/18 07:31 05/31/18 07:31 PT 15.7 SECONDS (9.7-12.2) H 05/29/18 22:08 INR 1.4 05/29/18 22:08 APTT 30 SECONDS (21-34) 05/29/18 22:08 Attending/Attestation - Attestation I have personally seen and examined this patient.: Yes I have fully participated in the care of the patient.: Yes I have reviewed all pertinent clinical information, including history, physical exam and plan: Yes Notes (Text): 05/31/18 18:56 Medical attending: Patient was seen and examined by me. Agree with the above note by the residen The patient was not in any acute distress when I came and saw the patient with the resident He reported last night being able to sleep and breathing was easier now. He denied fevers and denied chills, the blood cultures are negative so will try holding the IV rocphin and IV doxcycline since the CT scan was suggesting that this was not a PNA but a pulmonary infacrtion. He is still on lovenox SC BID at this time He remains on IV lasix. As mentioned previously we are also holding the Dimitris as well as the Aldactone since when he came in the BP was lower. Should it remain stable then we should probably start thinking about gettting him back on these as he does have extensive cardiac history thank you Nando Shields 05/31/18 18:58
[2018-05-31 07:43] LABS: BASO # 0.1 K/uL (0.0-0.2); BASO % 0.5 % (0.0-2.0); EOS # 0.1 K/uL (0.0-0.7); EOS % 0.5 % (0.0-4.0); HEMOGLOBIN 13.1 g/dL (12.0-18.0); LYMPH # 1.3 K/uL (1.0-4.3); LYMPH % 9.8 % (20.0-40.0); MEAN CELL VOLUME 90.9 fL (80.0-94.0); MEAN CORPUSCULAR HEMOGLOBIN 30.6 pg (27.0-31.0); MEAN CORPUSCULAR HGB CONC 33.6 g/dL (33.0-37.0); MEAN PLATELET VOLUME 8.7 fL (7.2-11.7); MONO % 7.7 % (0.0-10.0); NEUT # 10.8 K/uL (1.8-7.0); NEUT % 81.5 % (50.0-75.0); NRBC % 0.1 % (0.0-2.0); PLATELET COUNT 309 K/uL (130-400); RED CELL DISTRIBUTION WIDTH 15.4 % (11.5-14.5); WHITE BLOOD COUNT 13.2 K/uL (4.8-10.8)
[2018-05-31 08:08] LABS: ALB/GLOB RATIO 1.2 (1.0-2.1); ALBUMIN 3.8 g/dL (3.5-5.0); ALT/SGPT 58 U/L (21-72); AST/SGOT 39 U/L (17-59); BLOOD UREA NITROGEN 25 mg/dL (9-20); CALCIUM 8.9 mg/dl (8.6-10.4); GFR AFRICAN-AMERICAN > 60; GFR NON-AFRICAN AMERICAN > 60
--- NOTE | 2018-05-31 08:15 | RAD ---
Date of service: 05/31/2018 HISTORY: SOB COMPARISON: 05/29/2018 FINDINGS: LUNGS: There is interval development of diffuse haziness in the lungs. PLEURA: Suspect layering effusions, no pneumothorax apparent. CARDIOVASCULAR: Persistent severe cardiomegaly and prominent central vasculature. OSSEOUS STRUCTURES: No significant abnormalities. VISUALIZED UPPER ABDOMEN: Normal. OTHER FINDINGS: None. IMPRESSION: Suspect interval development of pulmonary edema and/or layering pleural effusions.
[2018-05-31 09:48] LABS: BANDS 3 % (0-2); LYMPHOCYTE 11 % (20-40); TOTAL CELLS COUNTED 100
[2018-05-31 09:49] LABS: ANISOCYTOSIS SLIGHT; MONOCYTE 9 % (0-10); NEUTROPHIL 77 % (50-75); PLATELET ESTIMATE NORMAL (NORMAL)
[2018-05-31] MEDS: Saccharomyces Boulardi 250 mg Cap PO SCH ×2 (09:49→18:03)
[2018-05-31] MEDS: Enoxaparin 120 mg Syringe SC SCH ×2 (09:51→21:51)
--- NOTE | 2018-05-31 10:30 | VASCLAB ---
Date of service: 05/30/2018 PROCEDURE: Upper Extremity Venous Duplex Exam HISTORY: Shortness of breath, Pulmonary infiltrate. PRIORS: None. TECHNIQUE: Bilateral upper extremity, internal jugular, subclavian, axillary, brachial, ulnar, radial, basilic and upper cephalic veins were evaluated. Flow was assessed with color Doppler, compressibility, assessment of phasic flow and augmentation response. Report prepared by Annette Patterson S FINDINGS: RIGHT: 1. Internal Jugular: 1.1. Compressibility - Fully compressible: Thrombus - None : Flow - Phasic: Augmentation -Normal: Reflux - None. 2. Subclavian: 2.1. Compressibility - Fully compressible: Thrombus - None : Flow - Phasic: Augmentation -Normal: Reflux - None. 3. Axillary: 3.1. Compressibility - Fully compressible: Thrombus - None : Flow - Phasic: Augmentation -Normal: Reflux - None. 4. Brachial: 4.1. Compressibility - Fully compressible: Thrombus - None: Flow - Phasic: Augmentation -Normal: Reflux - None. 5. Ulnar: 5.1. Compressibility - Fully compressible: Thrombus - None: Flow - Phasic: Augmentation -Normal: Reflux - None. 6. Radial: 6.1. Compressibility - Fully compressible: Thrombus - None: Flow - Phasic: Augmentation - Normal: Reflux - None. 7. Cephalic: 7.1. Compressibility - Fully compressible: Thrombus - None: Flow - Phasic: Augmentation -Normal: Reflux - None. 8. Basilic: 8.1. Compressibility - Fully compressible: Thrombus - None: Flow - Phasic: Augmentation -Normal: Reflux - None. LEFT: 1. Internal Jugular: 1.1. Compressibility - Fully compressible: Thrombus - None : Flow - Phasic: Augmentation -Normal: Reflux - None. 2. Subclavian: 2.1. Compressibility - Fully compressible: Thrombus - None : Flow - Phasic: Augmentation -Normal: Reflux - None. 3. Axillary: 3.1. Compressibility - Fully compressible: Thrombus - None : Flow - Phasic: Augmentation -Normal: Reflux - None. 4. Brachial: 4.1. Compressibility - Fully compressible: Thrombus - None: Flow - Phasic: Augmentation -Normal: Reflux - None. 5. Ulnar: 5.1. Compressibility - Fully compressible: Thrombus - None: Flow - Phasic: Augmentation -Normal: Reflux - None. 6. Radial: 6.1. Compressibility - Fully compressible: Thrombus - None: Flow - Phasic: Augmentation - Normal: Reflux - None. 7. Cephalic: 7.1. Compressibility - Fully compressible: Thrombus - None: Flow - Phasic: Augmentation -Normal: Reflux - None. 8. Basilic: 8.1. Compressibility - Fully compressible: Thrombus - None: Flow - Phasic: Augmentation -Normal: Reflux - None. OTHER FINDINGS: Right: None. Left: None. IMPRESSION: Right: No evidence of vein thrombosis of the right upper extremity with excellent venous flow. Normal valve function noted of the right side. Left: No evidence of vein thrombosis of the left upper extremity with excellent venous flow. Normal valve function noted of the left side.
--- NOTE | 2018-05-31 10:31 | VASCLAB ---
Date of service: 05/30/2018 PROCEDURE: Lower Extremity Venous Duplex Exam. HISTORY: Leg edema, Shortness of breath PRIORS: None. TECHNIQUE: Bilateral common femoral, femoral, popliteal and posterior tibial, peroneal and great saphenous veins were evaluated. Flow was assessed with color Doppler, compressibility, assessment of phasic flow and augmentation response. Report prepared by SELINA Brumfield FINDINGS: RIGHT: 1. Common Femoral Vein: 1.1. Compressibility - Fully compressible: Thrombus - None : Flow - Phasic: Augmentation -Normal: Reflux - None. 2. Femoral Vein: 2.1. Compressibility - Fully compressible: Thrombus - None : Flow - Phasic: Augmentation -Normal: Reflux - None. 3. Popliteal Vein: 3.1. Compressibility - Fully compressible: Thrombus - None : Flow - Phasic: Augmentation -Normal: Reflux - None. 4. Posterior Tibial Vein: 4.1. Compressibility - Fully compressible: Thrombus - None: Flow - Phasic: Augmentation -Normal: Reflux - None. 5. Peroneal Vein: 5.1. Compressibility - Fully compressible: Thrombus - None: Flow - Phasic: Augmentation -Normal: Reflux - None. 6. Great Saphenous Vein: 6.1. Compressibility - Fully compressible: Thrombus - None: Flow - Phasic: Augmentation - Normal: Reflux - None. LEFT: 1. Common Femoral Vein: 1.1. Compressibility - Fully compressible: Thrombus - None: Flow - Phasic: Augmentation -Normal: Reflux - None. 2. Femoral Vein: 2.1. Compressibility - Fully compressible: Thrombus - None: Flow - Phasic: Augmentation -Normal: Reflux - None. 3. Popliteal Vein: 3.1. Compressibility - Fully compressible: Thrombus - None : Flow - Phasic: Augmentation -Normal: Reflux - None. 4. Posterior Tibial Vein: 4.1. Compressibility - Fully compressible: Thrombus - None: Flow - Phasic: Augmentation -Normal: Reflux - None. 5. Peroneal Vein: 5.1. Compressibility - Fully compressible: Thrombus - None: Flow - Phasic: Augmentation -Normal: Reflux - None. 6. Great Saphenous Vein: 6.1. Compressibility - Fully compressible: Thrombus - None: Flow - Phasic: Augmentation - Normal: Reflux - None. OTHER FINDINGS: Right: None significant. Left: None significant. IMPRESSION: Right: No evidence of deep or superficial vein thrombosis of the right lower extremity. Normal valve function noted of the right side. Left: No evidence of deep or superficial vein thrombosis of the left lower extremity. Normal valve function noted of the left side.
[2018-06-01] MEDS: Enoxaparin 120 mg Syringe SC SCH ×2 (09:41→21:29)
[2018-06-01] MEDS: Saccharomyces Boulardi 250 mg Cap PO SCH ×2 (09:42→17:04)
--- NOTE | 2018-06-01 09:44 | CP.PCM.PN ---
Subjective - Date & Time of Evaluation Date of Evaluation: 06/01/18 Time of Evaluation: 09:41 - Subjective Subjective: PGY-1 Medicine progress note for Dr. Bolanos's service Patient seen and examined at bedside. 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 Patient denies sob at rest. Patient reports leg swelling and feeling bloated but reports two bowel movements yesterday. Patient denies chest pain, n/v, palpitatoins, cough, diarrhea, constipation, dysuria, headaches, dizziness. Objective - Vital Signs/Intake and Output Vital Signs (last 24 hours): Temp Pulse Resp BP Pulse Ox 97.7 F 102 H 20 97/68 L 98 06/01/18 07:45 06/01/18 08:00 06/01/18 07:45 06/01/18 07:45 06/01/18 07:45 Intake and Output: 06/01/18 06/01/18 06:59 18:59 Intake Total 340 Balance 340 - Medications Medications: Current Medications Aspirin (Aspirin Chewable) 81 mg PO DAILY [facility] Last Admin: 05/31/18 09:49 Dose: 81 mg Enoxaparin Sodium (Lovenox) 110 mg SC Q12 [facility] Last Admin: 05/31/18 21:51 Dose: 110 mg Furosemide (Lasix) 20 mg IVP DAILY [facility] Last Admin: 05/31/18 09:50 Dose: 20 mg Guaifenesin/Dextromethorphan (Robitussin Dm) 5 ml PO Q4H PRN PRN Reason: Cough Last Admin: 05/30/18 03:14 Dose: 5 ml Pneumococcal Polyvalent Vaccine (Pneumovax 23 Vaccine) 0.5 ml IM .ONCE ONE Stop: 06/01/18 10:01 Saccharomyces Boulardii (Florastor) 250 mg PO BID [facility] Last Admin: 05/31/18 18:03 Dose: 250 mg - Labs Labs: 05/31/18 07:31 05/31/18 07:31 PT 15.7 SECONDS (9.7-12.2) H 05/29/18 22:08 INR 1.4 05/29/18 22:08 APTT 30 SECONDS (21-34) 05/29/18 22:08 - Constitutional Appears: Non-toxic, No Acute Distress - Head Exam Head Exam: NORMAL INSPECTION, NORMOCEPHALIC - Eye Exam Eye Exam: EOMI, Normal appearance. absent: Nystagmus, Scleral icterus - Respiratory Exam Respiratory Exam: Decreased Breath Sounds, NORMAL BREATHING PATTERN. absent: Rales, Rhonchi, Wheezes - Cardiovascular Exam Cardiovascular Exam: REGULAR RHYTHM, +S1, +S2. absent: Tachycardia, JVD, Murmur - GI/Abdominal Exam GI & Abdominal Exam: Firm, Normal Bowel Sounds. absent: Guarding, Rigid, Tenderness - Extremities Exam Extremities Exam: Pedal Edema. absent: Calf Tenderness Additional comments: b/l swelling of lower extremities minimal compressibility of lower extremities, very tight and look swollen no discoloration pedal pulses present no tenderness to palpations of LE b/l - Neurological Exam Neurological Exam: Alert, Awake, Oriented x3 - Psychiatric Exam Psychiatric exam: Normal Affect, Normal Mood - Skin Skin Exam: Intact, Normal Color Assessment and Plan - Assessment and Plan (Free Text) Assessment: Patient is a 37 yo male with past medical history of CHF with AICD and IGT, who presented with complaints worsening shortness of breath and non-productive that has been going on for the past 4 days. CTA chest reveals a posterior RUL pulmonary infarct; on lovenox 110 mg bid Plan: Acute on chronic sytolic CHF On admission: BNP 4010 CXR 05/29: Cardiomegaly with pulmomary congestion and possible right upper lobe pneumonia CXR 05/31: no infection identified, positive for pulm edema Echo (04/2018): Dilated cardiomyopathy. Left systolic function is severely impaired. EF is 25-30%. No AR present. Mild MR and trace of TR Troponins negative x3 Continue home Aspirin 81mg PO daily Held Entresto 49mg-51mg PO QD due to low BP Held Spironolactone 25 mg PO BID due to low BP Lasix to 20mg IV daily Robitussin DM 5ml Cardiology consult- Dr. Quinteros Pulmonary infarction posterior RUL 05/29/[address]: Findings suggestive of pulm edema; Wedge-shaped defects periphery posterior segment right upper lobe. The overall findings are suspicious of pulmonary infarction. Careful assessment of pulmonary arteries however fails to identify acute Pulm embolism. 05/30/18 Upper Extremity Artery Duplex * Lower Extremity Artery Duplex: Fails to identify any thrombus in UE or LE 05/31/18 Cxray: Suspect interval development of pulmonary edema and/or layering pleural effusions Lovenox 110 mg SC bid Aspirin 81mg po daily Coumadin 10mg po HS IGT HgbA1C 04/2018: 6.1 Chronic and stable Prophylaxis GI ppx: Florastor 250 mg PO BID VTE ppx: Lovenox 110 mg SC BID Diet: Heart healthy
[2018-06-01] MEDS ORDERED: Pneumococcal 23-Valent Vaccine IM ONE (10:00)
[2018-06-01 11:56] LABS: BASO # 0.1 K/uL (0.0-0.2); BASO % 0.5 % (0.0-2.0); EOS # 0.1 K/uL (0.0-0.7); EOS % 0.8 % (0.0-4.0); HEMOGLOBIN 13.4 g/dL (12.0-18.0); LYMPH # 1.4 K/uL (1.0-4.3); LYMPH % 10.9 % (20.0-40.0); MEAN CORPUSCULAR HGB CONC 32.9 g/dL (33.0-37.0); NEUT # 10.4 K/uL (1.8-7.0); NEUT % 79.8 % (50.0-75.0); RBC 4.48 Mil/uL (4.40-5.90); RED CELL DISTRIBUTION WIDTH 15.1 % (11.5-14.5)
[2018-06-01 12:18] LABS: ALB/GLOB RATIO 1.1 (1.0-2.1); ALBUMIN 3.9 g/dL (3.5-5.0); ALT/SGPT 81 U/L (21-72); AST/SGOT 66 U/L (17-59); BLOOD UREA NITROGEN 28 mg/dL (9-20); CALCIUM 9.1 mg/dl (8.6-10.4); GFR AFRICAN-AMERICAN > 60; GFR NON-AFRICAN AMERICAN > 60
[2018-06-01 19:27] LABS: INR 1.5; PROTHROMBIN TIME 16.8 SECONDS (9.7-12.2)
[2018-06-01] MEDS: guaiFENesin DM 100 mg-10 mg/5 ml UD PO PRN (21:29)
--- NOTE | 2018-06-01 22:06 | CP.PCM.CON ---
History of Present Illness - History of Present Illness History of Present Illness: Reason for consultation: shortness of breath and abnormal CAT scan of chest 37-year-old male with history ofcongestive heart failure status post AICD who presented to emergency room with worsening shortness of breath and nonproductive cough. CAT scan of the chest consistent with wedge shaped infiltrate but no pulmonary embolism. Denies fever or chills Patient states that he has not noted any significant weight gain or change in shoe size over that past 4 days but continues to sleep in a reclining sofa at a 90 degree angle. PMHx: CHF, IGT PSHx: AICD placement (2013), appendectomy (childhood), Bicep tendon repair (2010 ) FHX: CHF (father and uncle) DM (father's side), Thyroid CA (Family member), Stomach CA (aunt) Medications: Entresto 49mg-51mg PO HS, Entresto 24mg-26 mg PO QD, chewable Aspirin 81mg, Spirinolactone 25mg, Lasix 40mg Allergies: Denies Social Hx: Works at [id number]. Lives with significant other and son. Former smoker, 1 pack every 2 weeks (quitted 19 years ago), Social drinker (quitted 5 years ago), Marijuana recreational use (quitted 5 years ago). Patient diets consist on no salt meals, mostly salads and vegetables. Review of Systems - Review of Systems All systems: reviewed and no additional remarkable complaints except (shortness of breath) Past Patient History - Infectious Disease Hx of Infectious Diseases: None - Tetanus Immunizations Tetanus Immunization: Unknown - Past Medical History & Family History Past Medical History?: Yes - Past Social History Smoking Status: Former Smoker - CARDIAC Hx Congestive Heart Failure: Yes Hx Hypertension: Yes Hx Pacemaker: Yes ([id number]) - PULMONARY Hx Bronchitis: Yes - NEUROLOGICAL Hx Neurological Disorder: No - HEENT Hx HEENT Problems: No - RENAL Hx Chronic Kidney Disease: No - ENDOCRINE/METABOLIC Hx Endocrine Disorders: No - HEMATOLOGICAL/ONCOLOGICAL Hx Blood Disorders: No - INTEGUMENTARY Hx Dermatological Problems: No - MUSCULOSKELETAL/RHEUMATOLOGICAL Hx Falls: No - GASTROINTESTINAL Other/Comment: hx appendicitis AT AGE 9 - GENITOURINARY/GYNECOLOGICAL Hx Genitourinary Disorders: No - PSYCHIATRIC Hx Substance Use: No - SURGICAL HISTORY Hx Appendectomy: Yes - ANESTHESIA Hx Anesthesia: Yes Hx Anesthesia Reactions: No Meds Allergies/Adverse Reactions: Allergies Allergy/AdvReac Type Severity Reaction Status Date / Time No Known Allergies Allergy Verified 05/29/18 21:52 - Medications Medications: Current Medications Aspirin (Aspirin Chewable) 81 mg PO DAILY [facility] Last Admin: 06/01/18 09:41 Dose: 81 mg Enoxaparin Sodium (Lovenox) 110 mg SC Q12 [facility] Last Admin: 06/01/18 21:29 Dose: 110 mg Furosemide (Lasix) 40 mg IVP BID [facility] Last Admin: 06/01/18 17:25 Dose: 40 mg Guaifenesin/Dextromethorphan (Robitussin Dm) 5 ml PO Q4H PRN PRN Reason: Cough Last Admin: 06/01/18 21:29 Dose: 5 ml Saccharomyces Boulardii (Florastor) 250 mg PO BID [facility] Last Admin: 06/01/18 17:04 Dose: Not Given Physical Exam - Head Exam Head Exam: ATRAUMATIC, NORMOCEPHALIC - ENT Exam ENT Exam: Mucous Membranes Moist - Respiratory Exam Respiratory Exam: Clear to Auscultation Bilateral Results - Vital Signs Recent Vital Signs: Last Vital Signs Temp 97.6 F 06/01/18 15:05 Pulse 109 H 06/01/18 21:39 Resp 20 06/01/18 15:05 BP 126/88 06/01/18 17:25 Pulse Ox 99 06/01/18 15:05 - Labs Result Diagrams: 06/01/18 11:44 06/01/18 11:44 Labs: Laboratory Results - last 24 hr 06/01/18 06/01/18 06/01/18 11:44 11:44 19:18 WBC 13.0 H RBC 4.48 Hgb 13.4 Hct 40.8 MCV 91.0 MCH 30.0 MCHC 32.9 L RDW 15.1 H Plt Count 326 MPV 9.0 Neut % (Auto) 79.8 H Lymph % (Auto) 10.9 L Mcculloch % (Auto) 8.0 Eos % (Auto) 0.8 Baso % (Auto) 0.5 Neut # (Auto) 10.4 H Lymph # (Auto) 1.4 Mcculloch # (Auto) 1.0 H Eos # (Auto) 0.1 Baso # (Auto) 0.1 PT 16.8 H INR 1.5 Sodium 135 Potassium 4.6 Chloride 99 Carbon Dioxide 23 Anion Gap 17 BUN 28 H Creatinine 1.1 Est GFR ( Amer) > 60 Est GFR (Non-Af Amer) > 60 Random Glucose 135 H Calcium 9.1 Phosphorus 3.7 Magnesium 2.2 Total Bilirubin 2.2 H AST 66 H D ALT 81 H D Alkaline Phosphatase 104 Total Protein 7.4 Albumin 3.9 Globulin 3.5 Albumin/Globulin Ratio 1.1 Assessment & Plan (1) Pneumonia Assessment and Plan: start Rocephin procalcitonin level Continue diuretics Status: Acute (2) CHF (congestive heart failure) Status: Acute
[2018-06-02] MEDS: Enoxaparin 120 mg Syringe SC SCH ×2 (09:52→21:47)
[2018-06-02] MEDS: guaiFENesin DM 100 mg-10 mg/5 ml UD PO PRN ×3 (09:52→21:50)
[2018-06-02] MEDS ORDERED: Azithromycin 500 MG in Sodium Chloride 0.9% 250 ML IVPB SCH (10:00)
--- NOTE | 2018-06-02 10:33 | CP.PCM.PN ---
Subjective - Date & Time of Evaluation Date of Evaluation: 06/02/18 Time of Evaluation: 10:00 - Subjective Subjective: PGY-1 Medicine Progress Note for Dr. Bolanos's service Patient seen and examined at bedside. Patient reports his abdomen is less bloated from yesterday. Patient denies chest pain, sob, n/v, constipation, palpitations, diarrhea, dyusria, dizziness, headaches. Objective - Vital Signs/Intake and Output Vital Signs (last 24 hours): Temp Pulse Resp BP Pulse Ox 97.7 F 94 H 20 118/79 99 06/02/18 07:00 06/02/18 08:00 06/02/18 07:00 06/02/18 09:51 06/02/18 07:00 Intake and Output: 06/02/18 06/02/18 06:59 18:59 Intake Total 700 Balance 700 - Medications Medications: Current Medications Aspirin (Aspirin Chewable) 81 mg PO DAILY [facility] Last Admin: 06/02/18 09:52 Dose: 81 mg Enoxaparin Sodium (Lovenox) 110 mg SC Q12 [facility] Last Admin: 06/02/18 09:52 Dose: 110 mg Furosemide (Lasix) 40 mg IVP BID [facility] Last Admin: 06/02/18 09:51 Dose: 40 mg Guaifenesin/Dextromethorphan (Robitussin Dm) 5 ml PO Q4H PRN PRN Reason: Cough Last Admin: 06/02/18 09:52 Dose: 5 ml Azithromycin 500 mg/ Sodium (Chloride) 250 mls @ 250 mls/hr IVPB DAILY [facility] PRN Reason: Protocol Ceftriaxone Sodium 1 gm/ (Sodium Chloride) 100 mls @ 100 mls/hr IVPB Q24H [facility] PRN Reason: Protocol Saccharomyces Boulardii (Florastor) 250 mg PO BID [facility] Last Admin: 06/01/18 17:04 Dose: Not Given - Labs Labs: 06/01/18 11:44 06/01/18 11:44 PT 16.8 SECONDS (9.7-12.2) H 06/01/18 19:18 INR 1.5 06/01/18 19:18 APTT 30 SECONDS (21-34) 05/29/18 22:08 - Additional Findings Additional findings: - Constitutional Appears: Non-toxic, No Acute Distress - Head Exam Head Exam: NORMAL INSPECTION, NORMOCEPHALIC - Eye Exam Eye Exam: EOMI, Normal appearance. absent: Nystagmus, Scleral icterus - Respiratory Exam Respiratory Exam: NORMAL BREATHING PATTERN. absent: Rales, Rhonchi, Wheezes - Cardiovascular Exam Cardiovascular Exam: REGULAR RHYTHM, +S1, +S2. absent: Tachycardia, JVD, Murmur - GI/Abdominal Exam GI & Abdominal Exam: Firm, Normal Bowel Sounds. absent: Guarding, Rigid, Tenderness - Extremities Exam Extremities Exam: Pedal Edema. absent: Calf Tenderness Additional comments: b/l swelling of lower extremities minimal compressibility of lower extremities, very tight and look swollen no discoloration pedal pulses present no tenderness to palpations of LE b/l - Neurological Exam Neurological Exam: Alert, Awake, Oriented x3 - Psychiatric Exam Psychiatric exam: Normal Affect, Normal Mood - Skin Skin Exam: Intact, Normal Color Assessment and Plan - Assessment and Plan (Free Text) Assessment: Patient is a 37 yo male with past medical history of CHF with AICD and IGT, who presented with complaints worsening shortness of breath and non-productive that has been going on for the past 4 days. CTA chest reveals a posterior RUL pulmonary infarct; on lovenox 110 mg bid to stop on 06/05; on coumadin 10mg po at night Plan: Acute on chronic sytolic CHF On admission: BNP 4010 CXR 05/29: Cardiomegaly with pulmomary congestion and possible right upper lobe pneumonia CXR 05/31: no infection identified, positive for pulm edema Echo (04/2018): Dilated cardiomyopathy. Left systolic function is severely impaired. EF is 25-30%. No AR present. Mild MR and trace of TR Troponins negative x3 Continue home Aspirin 81mg PO daily Held Entresto 49mg-51mg PO QD due to low BP Held Spironolactone 25 mg PO BID due to low BP Lasix 20mg IV bid daily Robitussin DM 5ml Cardiology consult- Dr. Quinteros Pulmonary infarction posterior RUL 05/29/[address]: Findings suggestive of pulm edema; Wedge-shaped defects periphery posterior segment right upper lobe. The overall findings are suspicious of pulmonary infarction. Careful assessment of pulmonary arteries however fails to identify acute Pulm embolism. 05/30/18 Upper Extremity Artery Duplex * Lower Extremity Artery Duplex: Fails to identify any thrombus in UE or LE 05/31/18 Cxray: Suspect interval development of pulmonary edema and/or layering pleural effusions Lovenox 110 mg SC bid Aspirin 81mg po daily Coumadin 10mg po HS/ INR CHECKS Pneumonia Pulm Consulted: Dr. Escamilla WBC Azithromycin 500mg IVPB- stopped after patient started feeling nauseous and complaining increasing SOB Ceftriaxone 1gm IVPB- held with Azithromycin IGT HgbA1C 04/2018: 6.1 Chronic and stable Prophylaxis GI ppx: Florastor 250 mg PO BID VTE ppx: Lovenox 110 mg SC BID Diet: Heart healthy
[2018-06-02] MEDS: Saccharomyces Boulardi 250 mg Cap PO SCH ×2 (10:47→19:02)
[2018-06-02 13:50] LABS: BASO # 0.1 K/uL (0.0-0.2); BASO % 0.9 % (0.0-2.0); EOS # 0.1 K/uL (0.0-0.7); EOS % 1.1 % (0.0-4.0); HEMOGLOBIN 13.1 g/dL (12.0-18.0); LYMPH # 1.5 K/uL (1.0-4.3); LYMPH % 13.5 % (20.0-40.0); MEAN CELL VOLUME 90.5 fL (80.0-94.0); MEAN CORPUSCULAR HEMOGLOBIN 31.3 pg (27.0-31.0); MEAN CORPUSCULAR HGB CONC 34.5 g/dL (33.0-37.0); MEAN PLATELET VOLUME 8.4 fL (7.2-11.7); MONO # 0.8 K/uL (0.0-0.8); MONO % 7.7 % (0.0-10.0); NEUT # 8.4 K/uL (1.8-7.0); NEUT % 76.8 % (50.0-75.0); RBC 4.18 Mil/uL (4.40-5.90); RED CELL DISTRIBUTION WIDTH 15.5 % (11.5-14.5); WHITE BLOOD COUNT 10.9 K/uL (4.8-10.8)
[2018-06-02] MEDS: Azithromycin 500 MG in Sodium Chloride 0.9% 250 ML IVPB SCH (13:57)
[2018-06-02 14:12] LABS: ALB/GLOB RATIO 1.2 (1.0-2.1); ALBUMIN 3.7 g/dL (3.5-5.0); ALT/SGPT 97 U/L (21-72); AST/SGOT 69 U/L (17-59); BLOOD UREA NITROGEN 29 mg/dL (9-20); CALCIUM 8.6 mg/dl (8.6-10.4); GFR AFRICAN-AMERICAN > 60; GFR NON-AFRICAN AMERICAN > 60
[2018-06-02 20:10] LABS: INR 1.6; PROTHROMBIN TIME 17.9 SECONDS (9.7-12.2)
--- NOTE | 2018-06-02 22:10 | CARD ---
APPROVED REPORT Date of service: 05/29/2018 EKG Measurement Heart [id number] <Conclusion> Sinus tachycardia Possible Left atrial enlargement Left axis deviation Incomplete left bundle branch block Abnormal ECG
[2018-06-03 06:48] LABS: INR 1.7; PROTHROMBIN TIME 18.9 SECONDS (9.7-12.2)
[2018-06-03 08:13] VITALS: O2SAT 98
[2018-06-03] MEDS: Saccharomyces Boulardi 250 mg Cap PO SCH (09:16)
[2018-06-03] MEDS: Enoxaparin 120 mg Syringe SC SCH (09:16)
--- NOTE | 2018-06-03 09:51 | CP.PCM.PN ---
Subjective - Date & Time of Evaluation Date of Evaluation: 06/03/18 Time of Evaluation: 09:25 - Subjective Subjective: PGY-1 Rocío Dillon D.O. Medicine progress note for Dr. Kumar service: Objective - Vital Signs/Intake and Output Vital Signs (last 24 hours): Temp Pulse Resp BP Pulse Ox 98.5 F 98 H 18 100/66 98 06/03/18 07:45 06/03/18 07:45 06/03/18 07:45 06/03/18 09:17 06/03/18 07:45 Intake and Output: 06/03/18 06/03/18 06:59 18:59 Intake Total 100 Balance 100 - Medications Medications: Current Medications Aspirin (Aspirin Chewable) 81 mg PO DAILY [facility] Last Admin: 06/03/18 09:16 Dose: 81 mg Enoxaparin Sodium (Lovenox) 110 mg SC Q12 [facility] Last Admin: 06/03/18 09:16 Dose: 110 mg Furosemide (Lasix) 20 mg IVP BID [facility] Last Admin: 06/03/18 09:17 Dose: 20 mg Guaifenesin/Dextromethorphan (Robitussin Dm) 5 ml PO Q4H PRN PRN Reason: Cough Last Admin: 06/02/18 21:50 Dose: 5 ml Ceftriaxone Sodium 1 gm/ (Sodium Chloride) 100 mls @ 100 mls/hr IVPB Q24H [facility] PRN Reason: Protocol Last Admin: 06/02/18 13:57 Dose: 100 mls/hr Azithromycin 500 mg/ Sodium (Chloride) 250 mls @ 250 mls/hr IVPB Q24H [facility] PRN Reason: Protocol Last Admin: 06/02/18 13:57 Dose: 250 mls/hr Saccharomyces Boulardii (Florastor) 250 mg PO BID [facility] Last Admin: 06/03/18 09:16 Dose: 250 mg - Labs Labs: 06/02/18 13:40 06/02/18 13:40 PT 18.9 SECONDS (9.7-12.2) H 06/03/18 06:34 INR 1.7 06/03/18 06:34 APTT 30 SECONDS (21-34) 05/29/18 22:08
[2018-06-03 11:38] LABS: BASO # 0.1 K/uL (0.0-0.2); BASO % 1.1 % (0.0-2.0); EOS # 0.1 K/uL (0.0-0.7); EOS % 1.1 % (0.0-4.0); LYMPH # 1.6 K/uL (1.0-4.3); LYMPH % 15.7 % (20.0-40.0); MEAN CELL VOLUME 89.7 fL (80.0-94.0); MEAN CORPUSCULAR HEMOGLOBIN 30.2 pg (27.0-31.0); MEAN CORPUSCULAR HGB CONC 33.6 g/dL (33.0-37.0); MEAN PLATELET VOLUME 8.8 fL (7.2-11.7); MONO # 0.7 K/uL (0.0-0.8); MONO % 6.7 % (0.0-10.0); NEUT # 7.8 K/uL (1.8-7.0); NEUT % 75.4 % (50.0-75.0); NRBC % 0.1 % (0.0-2.0); RBC 4.29 Mil/uL (4.40-5.90); RED CELL DISTRIBUTION WIDTH 14.9 % (11.5-14.5); WHITE BLOOD COUNT 10.3 K/uL (4.8-10.8)
[2018-06-03 12:12] LABS: ALB/GLOB RATIO 1.2 (1.0-2.1); ALBUMIN 3.8 g/dL (3.5-5.0); ALT/SGPT 102 U/L (21-72); AST/SGOT 74 U/L (17-59); BLOOD UREA NITROGEN 27 mg/dL (9-20); CALCIUM 8.8 mg/dl (8.6-10.4); GFR AFRICAN-AMERICAN > 60; GFR NON-AFRICAN AMERICAN > 60
[2018-06-03] MEDS: Azithromycin 500 MG in Sodium Chloride 0.9% 250 ML IVPB SCH (14:46)
[2018-06-03 16:03] VITALS: RESP 20; TEMP 98
--- NOTE | 2018-06-03 16:07 | CP.PCM.DIS ---
Provider - Provider Date of Admission: 05/30/18 01:51 Attending physician: Oren Bolanos MD Primary care physician: Dr. Moreira Consults: pulmonology (Dr. Escamilla) Time Spent in preparation of Discharge (in minutes): 45 Diagnosis - Discharge Diagnosis (1) CHF exacerbation Status: Acute Priority: High (2) Pneumonia Status: Acute Priority: High Hospital Course - Lab Results Lab Results: Micro Results 05/30/18 05:35 Blood Blood Culture - Preliminary NO GROWTH AFTER 4 DAYS 05/30/18 06:05 Blood Blood Culture - Preliminary NO GROWTH AFTER 4 DAYS Most Recent Lab Values WBC 10.3 K/uL (4.8-10.8) 06/03/18 11:29 RBC 4.29 Mil/uL (4.40-5.90) L 06/03/18 11:29 Hgb 13.0 g/dL (12.0-18.0) 06/03/18 11:29 Hct 38.5 % (35.0-51.0) 06/03/18 11:29 MCV 89.7 fL (80.0-94.0) 06/03/18 11:29 MCH 30.2 pg (27.0-31.0) 06/03/18 11:29 MCHC 33.6 g/dL (33.0-37.0) 06/03/18 11:29 RDW 14.9 % (11.5-14.5) H 06/03/18 11:29 Plt Count 350 K/uL (130-400) 06/03/18 11:29 MPV 8.8 fL (7.2-11.7) 06/03/18 11:29 Neut % (Auto) 75.4 % (50.0-75.0) H 06/03/18 11:29 Lymph % (Auto) 15.7 % (20.0-40.0) L 06/03/18 11:29 [place] % (Auto) 6.7 % (0.0-10.0) 06/03/18 11:29 Eos % (Auto) 1.1 % (0.0-4.0) 06/03/18 11:29 Baso % (Auto) 1.1 % (0.0-2.0) 06/03/18 11:29 Neut # (Auto) 7.8 K/uL (1.8-7.0) H 06/03/18 11:29 Lymph # (Auto) 1.6 K/uL (1.0-4.3) 06/03/18 11:29 [place] # (Auto) 0.7 K/uL (0.0-0.8) 06/03/18 11:29 Eos # (Auto) 0.1 K/uL (0.0-0.7) 06/03/18 11:29 Baso # (Auto) 0.1 K/uL (0.0-0.2) 06/03/18 11:29 Neutrophils % (Manual) 77 % (50-75) H 05/31/18 07:31 Band Neutrophils % 3 % (0-2) H 05/31/18 07:31 Lymphocytes % (Manual) 11 % (20-40) L 05/31/18 07:31 Monocytes % (Manual) 9 % (0-10) 05/31/18 07:31 Platelet Estimate Normal (NORMAL) 05/31/18 07:31 Anisocytosis (manual) Slight 05/31/18 07:31 PT 18.9 SECONDS (9.7-12.2) H 06/03/18 06:34 INR 1.7 06/03/18 06:34 APTT 30 SECONDS (21-34) 05/29/18 22:08 D-Dimer, Quantitative 348 ng/mlDDU (0-243) H 05/29/18 22:08 Sodium 137 mmol/L (132-148) 06/03/18 11:29 Potassium 3.9 mmol/L (3.6-5.2) 06/03/18 11:29 Chloride 97 mmol/L (98-107) L 06/03/18 11:29 Carbon Dioxide 29 mmol/L (22-30) 06/03/18 11:29 Anion Gap 15 (10-20) 06/03/18 11:29 BUN 27 mg/dL (9-20) H 06/03/18 11:29 Creatinine 1.2 mg/dL (0.8-1.5) 06/03/18 11:29 Est GFR ( Amer) > 60 06/03/18 11:29 Est GFR (Non-Af Amer) > 60 06/03/18 11:29 Random Glucose 128 mg/dL (75-110) H 06/03/18 11:29 Calcium 8.8 mg/dl (8.6-10.4) 06/03/18 11:29 Phosphorus 3.2 mg/dL (2.5-4.5) 06/03/18 11:29 Magnesium 2.2 mg/dL (1.6-2.3) 06/03/18 11:29 Total Bilirubin 1.6 mg/dL (0.2-1.3) H 06/03/18 11:29 AST 74 U/L (17-59) H 06/03/18 11:29 ALT 102 U/L (21-72) H 06/03/18 11:29 Alkaline Phosphatase 118 U/L (38-126) 06/03/18 11:29 Total Creatine Kinase 161 U/L (55-170) 05/30/18 04:25 CK-MB (Mass) 0.85 ng/mL (0.0-3.38) 05/30/18 04:25 Troponin I 0.0400 ng/mL (0.00-0.120) 05/30/18 04:25 NT-Pro-B Natriuret Pep 4010 pg/mL (0-450) H 05/29/18 22:08 Total Protein 7.1 g/dL (6.3-8.3) 06/03/18 11:29 Albumin 3.8 g/dL (3.5-5.0) 06/03/18 11:29 Globulin 3.3 gm/dL (2.2-3.9) 06/03/18 11:29 Albumin/Globulin Ratio 1.2 (1.0-2.1) 06/03/18 11:29 Procalcitonin 0.29 NG/ML (0.19-0.49) 06/02/18 08:28 - Hospital Course Hospital Course: Patient is a 37 year old male with past medical history of CHF with AICD and IGT, who presents to the ED with complaints worsening shortness of breath and non-productive that has been going on for the past 4 days. Patient states that he has noticed severe worsening symptoms to the point that he was gasping for breath from deep sleep. Patient states that he has not noted any significant weight gain or change in shoe size over that past 4 days but continues to sleep in a reclining sofa at a 90 degree angle. Patient denies any fever, chills, nausea, vomiting, dizziness, recent travels/sickness or sick contact but admits to chest discomfort secondary to cough, palpitations. Patient states that he has been compliant with his medications but he not on beta-geneva due to side effects. On admission, CXR was consistent with CHF exacerbation. Patient's Entresto, metoprolol, and spironolactone were held due to low BP. patient's home Lasix dose was decreased also due to low BP and minimal edema on physical exam. Patient was initially placed on abx (Rocephin, Doxy) for suspected pneumonia. CTA revealed possible posterior RUL infarct instead of PNA, so patient was placed on therapeutic Lovenox. CTA also did not demonstrate PE and DVTs were ruled out in b/l lower extremities. Pulmonology (Dr. Escamilla) was consulted, and believed the CT and patient's presentation was more consistent with CHF exacerbation and PNA, so the patient was placed back on abx (Rocephin, Azithro) . Patient required up to 3L supplemental O2 via NC during his stay, mostly while sleeping. He was discharged on oral Ceftin for a total course of 10 days. Patient was observed to have an intolerance to Azithromycin, so this was discontinued. Upon discharge, patient's breathing had significantly improved. Cough had improved. His O2 saturation was >92% on room air. The rest of his vitals were stable. He did not have any pedal edema. He will follow-up with his hand hose cutter , Dr. Quinteros, within one week of discharge for medication management. Discharge Exam - Head Exam Head Exam: ATRAUMATIC, NORMAL INSPECTION, NORMOCEPHALIC - Eye Exam Eye Exam: EOMI, Normal appearance, PERRL - ENT Exam ENT Exam: Mucous Membranes Moist, Normal Exam - Neck Exam Neck exam: Full Rom, Normal Inspection - Respiratory Exam Respiratory Exam: Clear to PA & Lateral, NORMAL BREATHING PATTERN - Cardiovascular Exam Cardiovascular Exam: REGULAR RHYTHM, +S1, +S2 - GI/Abdominal Exam GI & Abdominal Exam: Normal Bowel Sounds, Soft, Unremarkable Additional comments: obese - Rectal Exam Rectal Exam: Deferred - Extremities Exam Extremities exam: full ROM, normal inspection - Back Exam Back exam: NORMAL INSPECTION - Neurological Exam Neurological exam: Alert, CN II-XII Intact, Normal Gait, Oriented x3 - Psychiatric Exam Psychiatric exam: Normal Affect, Normal Mood - Skin Skin Exam: Dry, Intact, Normal Color, Warm Discharge Plan - Discharge Medications Prescriptions: Carvedilol [Coreg] 3.125 mg PO Q12 #60 tab Cefuroxime Axetil [Cefuroxime] 500 mg PO Q12 #16 tablet Enalapril Maleate 5 mg PO DAILY #30 tablet Furosemide [Lasix] 20 mg PO DAILY #30 tablet - Follow Up Plan Condition: IMPROVED Disposition: HOME/ ROUTINE Patient education suggested?: Yes Instructions: Heart Healthy Diet, Heart Failure, Adult (DC), Pneumonia, Adult ( DC), Carvedilol, Cefuroxime, Enalapril, Furosemide Additional Instructions: Patient is cleared for discharge as per Dr. Bolanos. He is to follow up with his primary care physician, Dr. Moreira and his hand hose cutter, Dr. Quinteros, within one week of discharge. He is also being referred to production assembler, Dr. Escamilla. He is being discharged on the following medications: Aspirin 81 mg- take one by mouth daily Enalapril 5 mg- take one by mouth daily Lasix 20 mg- take one by mouth daily Coreg 3.125 mg- take one by mouth twice a day Cefuroxime 500 mg- take one by mouth twice a day for 8 days Patient is to STOP these medications until seen by his hand hose cutter: Entrestro Metoprolol Spironolactone If symptoms recur or worsen, patient was instructed to return to the ED. Patient understands and agrees. Referrals: Nelson Escamilla MD [Staff Provider] - Mu Moreira MD [Staff Provider] - Martin Quinteros MD [Staff Provider] -
[2018-06-03 16:18] VITALS: PULSE 108
[2018-06-03 16:56] VITALS: BP 118/68
[2018-06-04] MEDS ORDERED: Enoxaparin 40 mg Syringe SC SCH (10:00)
== END 2018-06-03 17:10 | disposition home or self-care (01) | DRG 544 ==
LOC: C.ER 21:43 → C.9E 05-30 01:51 → INTOOBSV 05-30 01:51 → OBSVTOIN 05-30 01:51 → C.6T 05-30 04:31
PROVIDERS: ADMIT Internal Medicine; ATTEND Internal Medicine
DX: I11.0 Hypertensive heart disease with heart failure (principal); J18.9 Pneumonia, unspecified organism; I26.99 Other pulmonary embolism without acute cor pulmonale; I42.9 Cardiomyopathy, unspecified; I25.10 Atherosclerotic heart disease of native coronary artery without angina pectoris; I50.23 Acute on chronic systolic (congestive) heart failure; Z79.82 Long term (current) use of aspirin; Z87.891 Personal history of nicotine dependence; Z95.0 Presence of cardiac pacemaker; Z95.810 Presence of automatic (implantable) cardiac defibrillator